=== PATIENT | male | born 1945 | race Caucasian/White ===

== ENCOUNTER 2016-11-07 10:54 | Outpatient (RCR) | payer MEDICARE ==
--- OUTSIDE RECORDS SUMMARY | 2016-08-26 07:54 | XMS REPORT | Continuity of Care Document ---
Author Author [facility] Organization [facility] Address Unknown Phone Unavailable Care Team Providers Care Parquetry Floor Layer Name Role Phone JOSE ALEJANDRO MANZO MD PCP Insurance Providers Payer Name Policy Number Subscriber Name Relationship Wps Medicare [id number] Tova Correa 18 Self / Same As Patient Blue Cross [facility] Supp [id number] Tova Correa 18 Self / Same As Patient Advance Directives Directive Response Recorded Date/Time Advance Directives No 06/20/15 3:00pm Health Care Power of Attache No 06/20/15 3:00pm Organ Donor No 06/20/15 3:00pm Resuscitation Status Full Code 06/20/15 3:00pm Problems Medical Problems Problem Onset Date Status Alcohol abuse with intoxication Unknown Active Status post fall Unknown Active Displaced fracture of left humerus Unknown Active Medications Medication Dose Route Sig Days/Qty Instructions Order Date Discontinued Date Status Potassium Chloride 8 Meq PO DAILY 10/05/10 06/15/15 Discontinued Levothyroxine Sodium (Levothroid) 1 Each PO DAILY 10/05/10 06/15/15 Discontinued Metoprolol Succinate 100 Mg PO TWICE A DAY 10/05/10 06/15/15 Discontinued Gabapentin 300 Mg PO TWICE A DAY TAKES 1/2 (600MG) TABLET 10/05/10 Active Oxycodone Hcl/Acetaminophen 1 Each PO EVERY 4 TO 6HRS NEEDED FOR PAIN 10/10/10 06/15/15 Discontinued Tramadol Hcl 50 Mg PO THREE TIMES A DAY PRN PAIN 06/15/15 06/15/15 Discontinued Amlodipine Besylate 10 Mg PO DAILY @ 1200 06/15/15 Active Hydrochlorothiazide 1 Each PO DAILY 06/15/15 06/15/15 Discontinued Potassium Chloride 10 Meq PO TWICE A DAY 06/15/15 Active Fluticasone Propionate 1 [place] NS DAILY 06/15/15 Active Metoprolol Tartrate 100 Mg PO TWICE A DAY 06/15/15 Active Levothyroxine Sodium 150 Mcg PO DAILY 06/15/15 Active Hydrochlorothiazide 12.5 Mg PO DAILY 06/15/15 Active Tramadol Hcl 50 Mg PO EVERY 8HRS PRN PAIN 06/15/15 06/29/15 Discontinued Multivitamin 1 Tab PO DAILY 06/15/15 Active Docusate Sodium 100 Mg PO TWICE A DAY 30 Days 06/20/15 Active Enoxaparin Sodium 40 Mg SC DAILY@05 30 Days 06/20/15 06/29/15 Discontinued Acetaminophen/Hydrocodone Bitart 1 Ea PO EVERY 4HRS PRN PAIN 30 Days Active [Lorazepam] 2 Mg PO Q2H PRN AGITATION 30 Days 06/20/15 06/29/15 Discontinued Al Hydrox/Mg Hydrox/Simethicone 30 Ml PO EVERY 6 HOURS PRN GI UPSET 30 Days 06/20/15 06/29/15 Discontinued [Promethazine Hcl] 25 Mg IM/IV EVERY 4HRS PRN NAUSEA/VOMITING 30 Days 06/20/15 06/29/15 Discontinued Senna 2 Ea PO TWICE A DAY PRN CONSTIPATION 30 Days 06/20/15 Active [Hydrocodone Bit/Acetaminophen] 1 Ea PO EVERY 4HRS PRN PAIN 60 Qty 06/07 Active Social History Social History Problem Response Recorded Date/Time Alcohol Use Regular Use 06/20/2015 12:45pm Recreational Drug Use Y THC WHEN YOUNGER 06/20/2015 12:45pm Recent Foreign Travel No 06/20/2015 3:30pm Recent Infectious Disease Exposure No 06/20/2015 12:45pm Sexually Transmitted Disease No 06/20/2015 12:45pm Do you dip or chew tobacco? No 06/20/2015 4:00pm Hospital Discharge Instructions No hospital discharge instructions. Plan of Care Discharge Date 06/30/15 10:00am Disposition 30 STILL A PATIENT Instructions/Education Provided Shoulder Dislocation (DC) Open Reduction and Internal Fixation of an Arm Fracture (DC) Forms Provided PDI Surgical Prescriptions See Medications Section Referrals (Unspecified) Reason(s) for Referral: PT EVAL AND TREAT VENITA TINSLEY MD (Unspecified) 2 Weeks Address: [address] [place] [address] Reason(s) for Referral: DR. CAZARES- 07/11/2015 AT 10:30 AM Additional Instructions/Education F/U WITH PCP (DR. MANZO) PRN F/U WITH DR. TINSLEY (ORTHO SURGEON) [facility] PT Care Plan and Goals Follow up with Dr. Tinsley in 2 weeks. DC Sutures 2 weeks from surgery-June 29, 2015.F/U with PCP PRN [facility] PT Functional Status Query Response Date Recorded Patient Orientation Confused June 29, 2015 2:26pm Patient Orientation Person Place Time Situation Normal For Age June 30, 2015 11:32am Comprehension Ability Understands Concepts June 30, 2015 8:00am Allergies, Adverse Reactions, Alerts Allergen Type Severity Reaction Status Last Updated No Known Drug Allergies Active 10/05/10 Immunizations Name Given Type Tetanus Booster (TDap) Unknown Historical pneumococcal polysaccharide PPV23 06/20/15 Administered pneumococcal polysaccharide PPV23 06/20/15 Administered Vital Signs Acute Vital Signs Vital Response Date/Time Temperature (Fahrenheit) 99.6 degrees F (97.6 - 99.5) Temperature (Calculated Celsius) 37.84481 degrees C (36.4 - 37.5) Temperature Source Temporal Pulse Rate (adult) 66 bpm (60 - 90) Respiratory Rate 20 bpm (12 - 24) O2 Sat by Pulse Oximetry 99 % (88 - 100) Blood Pressure 149/69 mm Hg Blood Pressure Mean 95 mm Hg Blood Pressure 149/69 mm Hg Pain Pain Intensity 0 Height (Feet) 5 feet Height (Inches) 11.00 inches Height (Calculated Centimeters) 180.710115 cm Weight (Pounds) 143 pounds Weight (Calculated Grams) 61431.710 gm Weight (Calculated Kilograms) 64.453719 kilograms Calculated BMI 21.20 Results Laboratory Results Test Name Result Units Flags Reference Collection Date/Time Result Date/ Time Comments White Blood Count 9.2 10^3/uL 4.3-11.0 06/20/2015 4:51am 06/20/2015 5: 17am Red Blood Count 3.28 10^6/uL L 4.35-5.85 06/20/2015 4:06/20/2015 5: 17am Hemoglobin 10.7 G/DL L 13.3-17.7 06/20/2015 4:06/20/2015 5:17am Hematocrit 31 % L 40-54 06/20/2015 4:06/20/2015 5:17am Mean Corpuscular Volume 95 FL 80-99 06/20/2015 4:06/20/2015 5: 17am Mean Corpuscular Hemoglobin 33 PG 25-34 06/20/2015 4:06/20/2015 5: 17am Mean Corpuscular Hemoglobin Concent 34 G/DL 32-36 06/20/2015 4: 5:17am Red Cell Distribution Width 12.5 % 10.0-14.5 06/20/2015 4:2014 5:17am Platelet Count 219 10^3/uL 130-400 06/20/2015 4:06/20/2015 5:17am Mean Platelet Volume 9.7 FL 7.4-10.4 06/20/2015 4:06/20/2015 5: 17am Neutrophils (%) (Auto) 71 % 42-75 06/20/2015 4:06/20/2015 5:17am Lymphocytes (%) (Auto) 14 % 12-44 06/20/2015 4:06/20/2015 5:17am Monocytes (%) (Auto) 13 % H 0-12 06/20/2015 4:06/20/2015 5:17am Eosinophils (%) (Auto) 3 % 0-10 06/20/2015 4:06/20/2015 5:17am Basophils (%) (Auto) 0 % 0-10 06/20/2015 4:06/20/2015 5:17am Neutrophils # (Auto) 6.5 X 10^3 1.8-7.8 06/20/2015 4:06/20/2015 5: 17am Lymphocytes # (Auto) 1.3 X 10^3 1.0-4.0 06/20/2015 4:06/20/2015 5: 17am Monocytes # (Auto) 1.2 X 10^3 H 0.0-1.0 06/20/2015 4:51am 06/20/2015 5: 17am Eosinophils # (Auto) 0.2 10^3/uL 0.0-0.3 06/20/2015 4:51am 06/20/2015 5 :17am Basophils # (Auto) 0.0 10^3/uL 0.0-0.1 06/20/2015 4:51am 06/20/2015 5: 17am Prothrombin Time 12.7 SEC 12.2-14.7 06/14/2015 7:52pm 06/14/2015 11: 11pm INR Comment 1.0 0.8-1.4 06/14/2015 7:52pm 06/14/2015 11:11pm INTERPRETIVE DATA SUGGESTED THERAPEUTIC RANGE FOR INR'S: VENOUS THROMBOSIS, PULMONARY EMBOLISM, OR PREVENTION OF SYSTEMIC EMBOLISM (EG. IN ATRIAL FIBRILLATION): 2.0 - 3.0 MECHANICAL PROSTHETIC HEART VALVES: 2.5 - 3.5* *NOTE: INR'S UP TO 4.5 MAY BE NECESSARY IN SELECTED GROUPS OF HIGH RISK PATIENTS. [employer]IXTH [place] COLLE[employer] OF CHEST PHYSICIANS CONSENSUS CONFERENCE ON ANTITHROMBOTIC THERAPY (2000). Activated Partial Thromboplast Time 34 SEC 24-35 06/14/2015 7:52pm 11:11pm Urine Color YELLOW 06/15/2015 8:00pm 06/15/2015 8:28pm Urine Clarity CLEAR 06/15/2015 8:00pm 06/15/2015 8:28pm Urine pH 6 5-9 06/15/2015 8:00pm 06/15/2015 8:28pm Urine Specific [place] 1.010 * 1.016-1.022 06/15/2015 8:00pm 2014 8:28pm Urine Protein 3+ * NEGATIVE 06/15/2015 8:00pm 06/15/2015 8:28pm Urine Glucose (UA) 4+ * NEGATIVE 06/15/2015 8:00pm 06/15/2015 8:28pm Urine RBC (Auto) 3+ * NEGATIVE 06/15/2015 8:00pm 06/15/2015 8:28pm Urine Ketones 2+ * NEGATIVE 06/15/2015 8:00pm 06/15/2015 8:28pm Urine Nitrite NEGATIVE NEGATIVE 06/15/2015 8:00pm 06/15/2015 8:28pm Urine Bilirubin NEGATIVE NEGATIVE 06/15/2015 8:00pm 06/15/2015 8: 28pm Urine Urobilinogen NORMAL MG/DL NORMAL 06/15/2015 8:00pm 06/15/2015 8: 28pm Urine Leukocyte Esterase NEGATIVE NEGATIVE 06/15/2015 8:00pm 2014 8:28pm Urine RBC 2-5 /HPF * 06/15/2015 8:00pm 06/15/2015 8:28pm Urine WBC RARE /HPF 06/15/2015 8:00pm 06/15/2015 8:28pm Urine Bacteria NEGATIVE /HPF 06/15/2015 8:00pm 06/15/2015 8:28pm Urine Crystals NONE /LPF 06/15/2015 8:00pm 06/15/2015 8:28pm Urine Casts NONE /LPF 06/15/2015 8:00pm 06/15/2015 8:28pm Urine Mucus NEGATIVE /LPF 06/15/2015 8:00pm 06/15/2015 8:28pm Urine Culture Indicated NO 06/15/2015 8:00pm 06/15/2015 8:28pm Sodium Level 132 MMOL/L L 135-145 06/20/2015 4:51am 06/20/2015 5:44am Potassium Level 3.5 MMOL/L L 3.6-5.0 06/20/2015 4:51am 06/20/2015 5:44am Chloride Level 102 MMOL/L 98-107 06/20/2015 4:51am 06/20/2015 5:44am Carbon Dioxide Level 23 MMOL/L 21-32 06/20/2015 4:51am 06/20/2015 5: 44am Anion Gap 7 MMOL/L 5-14 06/20/2015 4:51am 06/20/2015 5:44am Blood Urea Nitrogen 15 MG/DL 7-18 06/20/2015 4:51am 06/20/2015 5:44am Creatinine 0.73 MG/DL 0.60-1.30 06/20/2015 4:51am 06/20/2015 5:44am BUN/Creatinine Ratio 06/20/2015 4:51am 06/20/2015 5:44am Estimat Glomerular Filtration Rate > 60 06/20/2015 4:51am 2014 5:44am GFR INTERPRETIVE DATA UNITS FOR ESTIMATED GFR (eGFR): mL/min/1.73 M2 REFERENCE RANGE FOR ESTIMATED GFR (eGFR) eGFR NORMAL eGFR >60 MODERATELY DECREASED eGFR 30-59 SEVERLY DECREASED eGFR 15-29 KIDNEY FAILURE <15 (OR DIALYSIS) Glucose Level 107 MG/DL H 70-105 06/20/2015 4:5106/20/2015 5:44am Calcium Level 8.6 MG/DL 8.5-10.1 06/20/2015 4:5106/20/2015 5:44am Total Bilirubin 0.5 MG/DL 0.1-1.0 06/15/2015 6:06/15/2015 7:04am Alkaline Phosphatase 72 U/L 40-136 06/15/2015 6:06/15/2015 7:04am Aspartate Amino Transf (AST/SGOT) 29 U/L 5-34 06/15/2015 6:2014 7:04am Alanine Aminotransferase (ALT/SGPT) 27 U/L 0-55 06/15/2015 6:06/15 7:04am Total Protein 5.9 G/DL L 6.4-8.2 06/15/2015 6:06/15/2015 7:04am Albumin 2.7 G/DL L 3.2-4.5 06/15/2015 6:06/15/2015 7:04am White Blood Count 7.3 10^3/uL 4.3-11.0 06/21/2015 5:06/21/2015 5: 45am Red Blood Count 3.29 10^6/uL L 4.35-5.85 06/21/2015 5:06/21/2015 5: 45am Hemoglobin 10.9 G/DL L 13.3-17.7 06/21/2015 5:06/21/2015 5:45am Hematocrit 31 % L 40-54 06/21/2015 5:06/21/2015 5:45am Mean Corpuscular Volume 95 FL 80-99 06/21/2015 5:06/21/2015 5: 45am Mean Corpuscular Hemoglobin 33 PG 25-34 06/21/2015 5:06/21/2015 5: 45am Mean Corpuscular Hemoglobin Concent 35 G/DL 32-36 06/21/2015 5: 5:45am Red Cell Distribution Width 12.2 % 10.0-14.5 06/21/2015 5:2014 5:45am Platelet Count 243 10^3/uL 130-400 06/21/2015 5:06/21/2015 5:45am Mean Platelet Volume 9.9 FL 7.4-10.4 06/21/2015 5:06/21/2015 5: 45am Neutrophils (%) (Auto) 67 % 42-75 06/21/2015 5:06/21/2015 5:45am Lymphocytes (%) (Auto) 15 % 12-44 06/21/2015 5:06/21/2015 5:45am Monocytes (%) (Auto) 14 % H 0-12 06/21/2015 5:06/21/2015 5:45am Eosinophils (%) (Auto) 4 % 0-10 06/21/2015 5:06/21/2015 5:45am Basophils (%) (Auto) 0 % 0-10 06/21/2015 5:06/21/2015 5:45am Neutrophils # (Auto) 4.9 X 10^3 1.8-7.8 06/21/2015 5:06/21/2015 5: 45am Lymphocytes # (Auto) 1.1 X 10^3 1.0-4.0 06/21/2015 5:06/21/2015 5: 45am Monocytes # (Auto) 1.1 X 10^3 H 0.0-1.0 06/21/2015 5:06/21/2015 5: 45am Eosinophils # (Auto) 0.3 10^3/uL 0.0-0.3 06/21/2015 5:06/21/2015 5 :45am Basophils # (Auto) 0.0 10^3/uL 0.0-0.1 06/21/2015 5:06/21/2015 5: 45am Sodium Level 133 MMOL/L L 135-145 06/21/2015 5:06/21/2015 6:13am Potassium Level 3.5 MMOL/L L 3.6-5.0 06/21/2015 5:1306/21/2015 6:13am Chloride Level 101 MMOL/L 98-107 06/21/2015 5:1306/21/2015 6:13am Carbon Dioxide Level 24 MMOL/L 21-32 06/21/2015 5:1306/21/2015 6: 13am Anion Gap 8 MMOL/L 5-14 06/21/2015 5:1306/21/2015 6:13am Blood Urea Nitrogen 15 MG/DL 7-18 06/21/2015 5:1306/21/2015 6:13am Creatinine 0.77 MG/DL 0.60-1.30 06/21/2015 5:06/21/2015 6:13am BUN/Creatinine Ratio 19 06/21/2015 5:06/21/2015 6:13am Estimat Glomerular Filtration Rate > 60 06/21/2015 5:2014 6:13am GFR INTERPRETIVE DATA UNITS FOR ESTIMATED GFR (eGFR): mL/min/1.73 M2 REFERENCE RANGE FOR ESTIMATED GFR (eGFR) eGFR NORMAL eGFR >60 MODERATELY DECREASED eGFR 30-59 SEVERLY DECREASED eGFR 15-29 KIDNEY FAILURE <15 (OR DIALYSIS) Glucose Level 98 MG/DL 70-105 06/21/2015 5:06/21/2015 6:13am Calcium Level 8.8 MG/DL 8.5-10.1 06/21/2015 5:06/21/2015 6:13am Total Bilirubin 1.1 MG/DL H 0.1-1.0 06/21/2015 5:06/21/2015 6:13am Alkaline Phosphatase 63 U/L 40-136 06/21/2015 5:06/21/2015 6:13am Aspartate Amino Transf (AST/SGOT) 48 U/L H 5-34 06/21/2015 5:2014 6:13am Alanine Aminotransferase (ALT/SGPT) 36 U/L 0-55 06/21/2015 5:06/21 6:13am Total Protein 6.2 G/DL L 6.4-8.2 06/21/2015 5:1306/21/2015 6:13am Albumin 2.7 G/DL L 3.2-4.5 06/21/2015 5:13am 06/21/2015 6:13am Procedures Procedure Status Date Provider(s) Tracing only of electrocardiogram completed 06/14/15 VENITA TINSLEY MD Encounters Encounter Location Date/Time Discharged Inpatient Via [facility] 06/20/15 1:36pm Discharged Inpatient Via [facility] 06/14/15 9:08pm
[2016-08-26 08:50] LABS: BASOPHILS % (AUTO) 0 % (0-10); EOSINOPHILS # (AUTO) 0.2 10^3/uL (0.0-0.3); EOSINOPHILS % (AUTO) 2 % (0-10); LYMPHOCYTES # (AUTO) 0.9 X 10^3 (1.0-4.0); LYMPHOCYTES % (AUTO) 11 % (12-44); MEAN CORPUSCULAR HEMOGLOBIN 32 PG (25-34); MEAN CORPUSCULAR HGB CONC 36 G/DL (32-36); MEAN CORPUSCULAR VOLUME 90 FL (80-99); MEAN PLATELET VOLUME 9.8 FL (7.4-10.4); MONOCYTES # (AUTO) 0.8 X 10^3 (0.0-1.0); MONOCYTES % (AUTO) 9 % (0-12); NEUTROPHILS # (AUTO) 6.4 X 10^3 (1.8-7.8); NEUTROPHILS % (AUTO) 78 % (42-75); PLATELET COUNT 265 10^3/uL (130-400); RED BLOOD COUNT 4.15 10^6/uL (4.35-5.85); RED CELL DISTRIBUTION WIDTH 11.8 % (10.0-14.5); WHITE BLOOD COUNT 8.3 10^3/uL (4.3-11.0)
[2016-08-26 09:29] LABS: ANION GAP 12 MMOL/L (5-14); BLOOD UREA NITROGEN 19 MG/DL (7-18); BUN/CREATININE RATIO 21; CALCIUM 9.4 MG/DL (8.5-10.1); CARBON DIOXIDE 21 MMOL/L (21-32); CHLORIDE 101 MMOL/L (98-107); GFR ESTIMATED > 60; GLUCOSE 153 MG/DL (70-105); MAGNESIUM 1.8 MG/DL (1.8-2.4); POTASSIUM 3.9 MMOL/L (3.6-5.0); SODIUM 134 MMOL/L (135-145)
[2016-09-02 08:55] LABS: BASOPHILS % (AUTO) 0 % (0-10); EOSINOPHILS # (AUTO) 0.1 10^3/uL (0.0-0.3); EOSINOPHILS % (AUTO) 2 % (0-10); LYMPHOCYTES # (AUTO) 0.6 X 10^3 (1.0-4.0); LYMPHOCYTES % (AUTO) 9 % (12-44); MEAN CORPUSCULAR HEMOGLOBIN 32 PG (25-34); MEAN CORPUSCULAR HGB CONC 36 G/DL (32-36); MEAN CORPUSCULAR VOLUME 89 FL (80-99); MEAN PLATELET VOLUME 9.4 FL (7.4-10.4); MONOCYTES # (AUTO) 0.9 X 10^3 (0.0-1.0); MONOCYTES % (AUTO) 13 % (0-12); NEUTROPHILS # (AUTO) 5.1 X 10^3 (1.8-7.8); NEUTROPHILS % (AUTO) 76 % (42-75); PLATELET COUNT 218 10^3/uL (130-400); RED BLOOD COUNT 3.76 10^6/uL (4.35-5.85); RED CELL DISTRIBUTION WIDTH 11.8 % (10.0-14.5); WHITE BLOOD COUNT 6.7 10^3/uL (4.3-11.0)
[2016-09-02 09:15] LABS: ANION GAP 11 MMOL/L (5-14); BLOOD UREA NITROGEN 14 MG/DL (7-18); BUN/CREATININE RATIO 18; CALCIUM 8.8 MG/DL (8.5-10.1); CARBON DIOXIDE 20 MMOL/L (21-32); CHLORIDE 100 MMOL/L (98-107); GFR ESTIMATED > 60; GLUCOSE 99 MG/DL (70-105); MAGNESIUM 1.7 MG/DL (1.8-2.4); POTASSIUM 3.8 MMOL/L (3.6-5.0); SODIUM 131 MMOL/L (135-145)
[2016-09-09 14:44] LABS: BASOPHILS % (AUTO) 0 % (0-10); EOSINOPHILS # (AUTO) 0.1 10^3/uL (0.0-0.3); EOSINOPHILS % (AUTO) 2 % (0-10); LYMPHOCYTES # (AUTO) 0.6 X 10^3 (1.0-4.0); LYMPHOCYTES % (AUTO) 13 % (12-44); MEAN CORPUSCULAR HEMOGLOBIN 32 PG (25-34); MEAN CORPUSCULAR HGB CONC 35 G/DL (32-36); MEAN CORPUSCULAR VOLUME 90 FL (80-99); MEAN PLATELET VOLUME 8.9 FL (7.4-10.4); MONOCYTES # (AUTO) 0.7 X 10^3 (0.0-1.0); MONOCYTES % (AUTO) 15 % (0-12); NEUTROPHILS # (AUTO) 3.4 X 10^3 (1.8-7.8); NEUTROPHILS % (AUTO) 70 % (42-75); PLATELET COUNT 172 10^3/uL (130-400); RED BLOOD COUNT 3.63 10^6/uL (4.35-5.85); RED CELL DISTRIBUTION WIDTH 12.8 % (10.0-14.5); WHITE BLOOD COUNT 4.8 10^3/uL (4.3-11.0)
[2016-09-09 15:18] LABS: ALANINE AMINOTRANSFERASE 18 U/L (0-55); ANION GAP 5 MMOL/L (5-14); ASPARTATE AMINO TRANSFERASE 18 U/L (5-34); BILIRUBIN,TOTAL 0.2 MG/DL (0.1-1.0); BLOOD UREA NITROGEN 13 MG/DL (7-18); BUN/CREATININE RATIO 17; CALCIUM 8.8 MG/DL (8.5-10.1); CARBON DIOXIDE 27 MMOL/L (21-32); CHLORIDE 101 MMOL/L (98-107); CREATININE SERUM 0.77 MG/DL (0.60-1.30); GFR ESTIMATED > 60; GLUCOSE 97 MG/DL (70-105); MAGNESIUM 1.6 MG/DL (1.8-2.4); SODIUM 133 MMOL/L (135-145)
[2016-09-16 08:19] LABS: BASOPHILS % (AUTO) 0 % (0-10); EOSINOPHILS % (AUTO) 1 % (0-10); LYMPHOCYTES # (AUTO) 0.5 X 10^3 (1.0-4.0); LYMPHOCYTES % (AUTO) 14 % (12-44); MEAN CORPUSCULAR HEMOGLOBIN 32 PG (25-34); MEAN CORPUSCULAR HGB CONC 36 G/DL (32-36); MEAN CORPUSCULAR VOLUME 90 FL (80-99); MEAN PLATELET VOLUME 9.2 FL (7.4-10.4); MONOCYTES # (AUTO) 0.6 X 10^3 (0.0-1.0); MONOCYTES % (AUTO) 17 % (0-12); NEUTROPHILS # (AUTO) 2.3 X 10^3 (1.8-7.8); NEUTROPHILS % (AUTO) 68 % (42-75); PLATELET COUNT 129 10^3/uL (130-400); RED BLOOD COUNT 3.59 10^6/uL (4.35-5.85); RED CELL DISTRIBUTION WIDTH 12.8 % (10.0-14.5); WHITE BLOOD COUNT 3.5 10^3/uL (4.3-11.0)
[2016-09-16 08:38] LABS: ANION GAP 7 MMOL/L (5-14); BLOOD UREA NITROGEN 14 MG/DL (7-18); BUN/CREATININE RATIO 19; CALCIUM 8.9 MG/DL (8.5-10.1); CARBON DIOXIDE 25 MMOL/L (21-32); CHLORIDE 99 MMOL/L (98-107); CREATININE SERUM 0.72 MG/DL (0.60-1.30); GFR ESTIMATED > 60; GLUCOSE 109 MG/DL (70-105); MAGNESIUM 1.7 MG/DL (1.8-2.4); POTASSIUM 4.2 MMOL/L (3.6-5.0); SODIUM 131 MMOL/L (135-145)
[2016-09-23 08:39] LABS: BASOPHILS % (AUTO) 0 % (0-10); EOSINOPHILS % (AUTO) 1 % (0-10); LYMPHOCYTES # (AUTO) 0.4 X 10^3 (1.0-4.0); LYMPHOCYTES % (AUTO) 15 % (12-44); MEAN CORPUSCULAR HEMOGLOBIN 32 PG (25-34); MEAN CORPUSCULAR HGB CONC 36 G/DL (32-36); MEAN CORPUSCULAR VOLUME 91 FL (80-99); MEAN PLATELET VOLUME 9.1 FL (7.4-10.4); MONOCYTES # (AUTO) 0.4 X 10^3 (0.0-1.0); MONOCYTES % (AUTO) 15 % (0-12); NEUTROPHILS % (AUTO) 68 % (42-75); PLATELET COUNT 126 10^3/uL (130-400); RED BLOOD COUNT 3.31 10^6/uL (4.35-5.85); RED CELL DISTRIBUTION WIDTH 13.5 % (10.0-14.5); WHITE BLOOD COUNT 2.9 10^3/uL (4.3-11.0)
[2016-09-23 09:11] LABS: ALANINE AMINOTRANSFERASE 20 U/L (0-55); ALBUMIN 3.1 G/DL (3.2-4.5); ANION GAP 6 MMOL/L (5-14); ASPARTATE AMINO TRANSFERASE 18 U/L (5-34); BILIRUBIN,TOTAL 0.3 MG/DL (0.1-1.0); BLOOD UREA NITROGEN 21 MG/DL (7-18); BUN/CREATININE RATIO 27; CALCIUM 8.6 MG/DL (8.5-10.1); CARBON DIOXIDE 26 MMOL/L (21-32); CHLORIDE 100 MMOL/L (98-107); CREATININE SERUM 0.78 MG/DL (0.60-1.30); GFR ESTIMATED > 60; GLUCOSE 146 MG/DL (70-105); MAGNESIUM 1.6 MG/DL (1.8-2.4); SODIUM 132 MMOL/L (135-145); TOTAL PROTEIN 6.1 G/DL (6.4-8.2)
[2016-09-30 08:46] LABS: BASOPHILS % (AUTO) 1 % (0-10); EOSINOPHILS % (AUTO) 1 % (0-10); LYMPHOCYTES # (AUTO) 0.4 X 10^3 (1.0-4.0); LYMPHOCYTES % (AUTO) 13 % (12-44); MEAN CORPUSCULAR HGB CONC 36 G/DL (32-36); MEAN CORPUSCULAR VOLUME 90 FL (80-99); MEAN PLATELET VOLUME 8.9 FL (7.4-10.4); MONOCYTES # (AUTO) 0.4 X 10^3 (0.0-1.0); MONOCYTES % (AUTO) 15 % (0-12); NEUTROPHILS % (AUTO) 70 % (42-75); PLATELET COUNT 163 10^3/uL (130-400); RED BLOOD COUNT 3.17 10^6/uL (4.35-5.85); RED CELL DISTRIBUTION WIDTH 14.3 % (10.0-14.5); WHITE BLOOD COUNT 2.9 10^3/uL (4.3-11.0)
[2016-09-30 08:47] LABS: MEAN CORPUSCULAR HEMOGLOBIN 32 PG (25-34)
[2016-09-30 09:02] LABS: ANION GAP 7 MMOL/L (5-14); BLOOD UREA NITROGEN 16 MG/DL (7-18); BUN/CREATININE RATIO 21; CALCIUM 9.1 MG/DL (8.5-10.1); CARBON DIOXIDE 26 MMOL/L (21-32); CHLORIDE 98 MMOL/L (98-107); CREATININE SERUM 0.75 MG/DL (0.60-1.30); GFR ESTIMATED > 60; GLUCOSE 116 MG/DL (70-105); MAGNESIUM 1.5 MG/DL (1.8-2.4); POTASSIUM 3.8 MMOL/L (3.6-5.0); SODIUM 131 MMOL/L (135-145)
[2016-10-07 08:34] LABS: BASOPHILS % (AUTO) 1 % (0-10); EOSINOPHILS % (AUTO) 1 % (0-10); LYMPHOCYTES # (AUTO) 0.4 X 10^3 (1.0-4.0); LYMPHOCYTES % (AUTO) 19 % (12-44); MEAN CORPUSCULAR HEMOGLOBIN 33 PG (25-34); MEAN CORPUSCULAR HGB CONC 36 G/DL (32-36); MEAN CORPUSCULAR VOLUME 92 FL (80-99); MONOCYTES # (AUTO) 0.3 X 10^3 (0.0-1.0); MONOCYTES % (AUTO) 13 % (0-12); NEUTROPHILS # (AUTO) 1.4 X 10^3 (1.8-7.8); NEUTROPHILS % (AUTO) 67 % (42-75); PLATELET COUNT 154 10^3/uL (130-400); RED BLOOD COUNT 3.01 10^6/uL (4.35-5.85); RED CELL DISTRIBUTION WIDTH 15.2 % (10.0-14.5); WHITE BLOOD COUNT 2.1 10^3/uL (4.3-11.0)
[2016-10-07 08:51] LABS: ANION GAP 6 MMOL/L (5-14); BLOOD UREA NITROGEN 14 MG/DL (7-18); BUN/CREATININE RATIO 17; CALCIUM 8.9 MG/DL (8.5-10.1); CARBON DIOXIDE 27 MMOL/L (21-32); CHLORIDE 95 MMOL/L (98-107); CREATININE SERUM 0.81 MG/DL (0.60-1.30); GFR ESTIMATED > 60; GLUCOSE 102 MG/DL (70-105); MAGNESIUM 1.7 MG/DL (1.8-2.4); POTASSIUM 4.2 MMOL/L (3.6-5.0); SODIUM 128 MMOL/L (135-145)
[2016-10-14 09:38] LABS: BASOPHILS % (AUTO) 1 % (0-10); EOSINOPHILS % (AUTO) 2 % (0-10); LYMPHOCYTES # (AUTO) 0.5 X 10^3 (1.0-4.0); LYMPHOCYTES % (AUTO) 23 % (12-44); MEAN CORPUSCULAR HEMOGLOBIN 34 PG (25-34); MEAN CORPUSCULAR HGB CONC 36 G/DL (32-36); MEAN CORPUSCULAR VOLUME 94 FL (80-99); MEAN PLATELET VOLUME 8.4 FL (7.4-10.4); MONOCYTES # (AUTO) 0.4 X 10^3 (0.0-1.0); MONOCYTES % (AUTO) 20 % (0-12); NEUTROPHILS # (AUTO) 1.1 X 10^3 (1.8-7.8); NEUTROPHILS % (AUTO) 55 % (42-75); PLATELET COUNT 128 10^3/uL (130-400); RED BLOOD COUNT 2.98 10^6/uL (4.35-5.85); RED CELL DISTRIBUTION WIDTH 17.9 % (10.0-14.5); WHITE BLOOD COUNT 2.1 10^3/uL (4.3-11.0)
[2016-10-14 10:52] LABS: ANION GAP 7 MMOL/L (5-14); BLOOD UREA NITROGEN 15 MG/DL (7-18); BUN/CREATININE RATIO 19; CALCIUM 9.1 MG/DL (8.5-10.1); CARBON DIOXIDE 27 MMOL/L (21-32); CHLORIDE 97 MMOL/L (98-107); CREATININE SERUM 0.81 MG/DL (0.60-1.30); GFR ESTIMATED > 60; GLUCOSE 131 MG/DL (70-105); MAGNESIUM 1.7 MG/DL (1.8-2.4); POTASSIUM 4.1 MMOL/L (3.6-5.0); SODIUM 131 MMOL/L (135-145)
[~2016-11-07 10:54] MED LIST: ACHYD1T PO; AMLO10TA PO; CISPLATIN IV SCH; DCS100C PO; ENXP40I.4 SC; FAMOTIDINE 20MG/2ML IV (CANCER CTR) IV SCH; FLUT16SP22 NS; FOSAPREPITANT 150 MG/NS 150 MG IVPB (CANCER CTR) IV PRN; GABA600T2 PO; HCTZ12.5T PO; HYDR-3730 PO; HYDR-3812 PO; HYDR12.56 PO; Hydrocodone Bit/Acetaminophen PO; INDA2.5T2 PO; LEVO150T6 PO; LVT.15T PO; Lorazepam PO; MAG30ORA2 PO; MANNITOL IV SCH; METO100T2 PO; METO100T5 PO; MULT-974 PO; NS IV 500 ML (CANCER CENTER) IV SCH; ONDANSETRON 16 MG, DEXAMETHASONE 10 MG/NS 50 ML IVPB IV SCH; OXYB10TA6 PO; OXYC-309 PO; POTA10TA36 PO; POTA8TAB PO; PROMETHAZINE HCL IM/IV; SENN1TAB76 PO; TRAM100T2 PO; TRAM50TA2 PO; [UNRECOGNIZED DRUG - OTHER] IV SCH; [UNRECOGNIZED DRUG - OTHER] IV SCH
[2016-11-07 11:21] LABS: BASOPHILS % (AUTO) 1 % (0-10); EOSINOPHILS # (AUTO) 0.1 10^3/uL (0.0-0.3); EOSINOPHILS % (AUTO) 2 % (0-10); LYMPHOCYTES # (AUTO) 0.9 X 10^3 (1.0-4.0); LYMPHOCYTES % (AUTO) 22 % (12-44); MEAN CORPUSCULAR HEMOGLOBIN 34 PG (25-34); MEAN CORPUSCULAR HGB CONC 35 G/DL (32-36); MEAN CORPUSCULAR VOLUME 97 FL (80-99); MEAN PLATELET VOLUME 9.1 FL (7.4-10.4); MONOCYTES # (AUTO) 0.5 X 10^3 (0.0-1.0); MONOCYTES % (AUTO) 13 % (0-12); NEUTROPHILS # (AUTO) 2.6 X 10^3 (1.8-7.8); NEUTROPHILS % (AUTO) 63 % (42-75); PLATELET COUNT 217 10^3/uL (130-400); RED BLOOD COUNT 3.46 10^6/uL (4.35-5.85); RED CELL DISTRIBUTION WIDTH 15.8 % (10.0-14.5); WHITE BLOOD COUNT 4.2 10^3/uL (4.3-11.0)
[2016-11-07 12:23] LABS: ALANINE AMINOTRANSFERASE 19 U/L (0-55); ALBUMIN 3.5 G/DL (3.2-4.5); ANION GAP 6 MMOL/L (5-14); ASPARTATE AMINO TRANSFERASE 23 U/L (5-34); BILIRUBIN,TOTAL 0.3 MG/DL (0.1-1.0); BLOOD UREA NITROGEN 24 MG/DL (7-18); BUN/CREATININE RATIO 29; CALCIUM 9.4 MG/DL (8.5-10.1); CARBON DIOXIDE 27 MMOL/L (21-32); CHLORIDE 104 MMOL/L (98-107); CREATININE SERUM 0.83 MG/DL (0.60-1.30); GFR ESTIMATED > 60; GLUCOSE 123 MG/DL (70-105); MAGNESIUM 1.7 MG/DL (1.8-2.4); POTASSIUM 3.8 MMOL/L (3.6-5.0); SODIUM 137 MMOL/L (135-145); TOTAL PROTEIN 6.8 G/DL (6.4-8.2)
== END 2016-11-24 | disposition home or self-care (01) ==
LOC: ONC 10:54
PROVIDERS: ATTEND Internal Medicine Hematology & Oncology
DX: Z51.11 Encounter for antineoplastic chemotherapy (principal); Z51.0 Encounter for antineoplastic radiation therapy; C12 Malignant neoplasm of pyriform sinus; I10 Essential (primary) hypertension; E03.9 Hypothyroidism, unspecified; E87.6 Hypokalemia; Z72.0 Tobacco use; Z79.899 Other long term (current) drug therapy
CPT/HCPCS: 36415; 36591; 77336; 77386; 80048; 80053; 83735; 84153; 85025; 96367; 96375; 96413; 96417; 99213

== ENCOUNTER 2016-11-26 12:21 | Outpatient (CLI) | payer MEDICARE ==
[~2016-11-26] VITALS: Ht 180.3 cm; Wt 59.6 kg
[~2016-11-26 12:21] MED LIST changes: -CISPLATIN IV SCH; -FAMOTIDINE 20MG/2ML IV (CANCER CTR) IV SCH; -FOSAPREPITANT 150 MG/NS 150 MG IVPB (CANCER CTR) IV PRN; -MANNITOL IV SCH; -NS IV 500 ML (CANCER CENTER) IV SCH; -ONDANSETRON 16 MG, DEXAMETHASONE 10 MG/NS 50 ML IVPB IV SCH; -[UNRECOGNIZED DRUG - OTHER] IV SCH; -[UNRECOGNIZED DRUG - OTHER] IV SCH
--- OUTSIDE RECORDS SUMMARY | 2016-11-26 12:26 | XMS REPORT | Continuity of Care Document ---
Author Author [facility] Organization [facility] Address Unknown Phone Unavailable Care Team Providers Care Pastrycook Name Role Phone JOSE ALEJANDRO MANZO MD PCP Insurance Providers Payer Name Policy Number Subscriber Name Relationship Wps Medicare [id number] Tova Correa 18 Self / Same As Patient Blue Cross [facility] Supp [id number] Tova Correa 18 Self / Same As Patient Advance Directives Directive Response Recorded Date/Time Advance Directives No 06/20/15 3:00pm Health Care Power of Ethnic Studies Professor No 06/20/15 3:00pm Organ Donor No 06/20/15 [...] A DAY 06/15/15 Active Fluticasone Propionate 1 [place] NS DAILY 06/15/15 Active Metoprolol Tartrate 100 [...] VENITA TINSLEY MD (Unspecified) 2 Weeks Address: [address] [place] [address] Reason(s) for Referral: DR. CAZARES- 07/11/2015 AT 10:30 AM Additional Instructions/Education F/U WITH PCP (DR. MANZO) PRN F/U WITH DR. TINSLEY (ORTHO SURGEON) [facility] PT Care Plan and Goals Follow up with Dr. Tinsley in 2 weeks. DC Sutures 2 weeks from surgery-June 29, 2015.F/U with PCP PRN [facility] PT Functional Status Query Response Date Recorded [...] F (97.6 - 99.5) Temperature (Calculated Celsius) 37.65848 degrees C (36.4 - 37.5) Temperature Source [...] Height (Inches) 11.00 inches Height (Calculated Centimeters) 180.691290 cm Weight (Pounds) 143 pounds Weight (Calculated Grams) 63955.710 gm Weight (Calculated Kilograms) 64.711451 kilograms Calculated BMI 21.20 Results Laboratory Results [...] SELECTED GROUPS OF HIGH RISK PATIENTS. [employer]IX[employer] [place] [employer] CHEST PHYSICIANS CONSENSUS CONFERENCE ON ANTITHROMBOTIC THERAPY (2000). Activated Partial Thromboplast Time 34 SEC 24-35 06/14/2015 7:52pm 11:11pm Urine Color YELLOW 06/15/2015 8:00pm 06/15/2015 8:28pm Urine Clarity CLEAR 06/15/2015 8:00pm 06/15/2015 8:28pm Urine pH 6 5-9 06/15/2015 8:00pm 06/15/2015 8:28pm Urine Specific [place] 1.010 * 1.016-1.022 06/15/2015 8:00pm 2014 8:28pm [...] Encounters Encounter Location Date/Time Discharged Inpatient Via [facility] 06/20/15 1:36pm Discharged Inpatient Via [facility] 06/14/15 9:08pm
[2016-11-26 12:32] VITALS: BP 138/57
[2016-11-26] MEDS ORDERED: MAGN400T6 PO (12:39)
[2016-11-26] MEDS ORDERED: OMEP20TA7 PO (12:39)
== END 2016-11-26 12:45 | disposition home or self-care (01) ==
LOC: PREOP 12:21
PROVIDERS: ATTEND Otolaryngology Otolaryngology/Facial Plastic Surgery
DX: Z01.818 Encounter for other preprocedural examination (principal); Z11.2 Encounter for screening for other bacterial diseases; C12 Malignant neoplasm of pyriform sinus
CPT/HCPCS: 87081

== ENCOUNTER 2016-11-28 06:23 | Day surgery (SDC) | payer MEDICARE ==
[~2016-11-28] VITALS: Ht 180.3 cm; Wt 59.6 kg
[~2016-11-28 06:23] MED LIST changes: +MAGN400T6 PO; +OMEP20TA7 PO
--- OUTSIDE RECORDS SUMMARY | 2016-11-28 06:27 | XMS REPORT | Continuity of Care Document ---
Author Author [facility] Organization [facility] Address Unknown Phone Unavailable Care Team Providers Care Vial Gauger Name Role Phone JOSE ALEJANDRO MANZO MD PCP Insurance Providers Payer Name Policy Number Subscriber Name Relationship Wps Medicare [id number] Tova Correa 18 Self / Same As Patient Blue Cross [facility] Supp [id number] Tova Correa 18 Self / Same As Patient Advance Directives Directive Response Recorded Date/Time Advance Directives No 06/20/15 3:00pm Health Care Power of Pig Farm Manager No 06/20/15 3:00pm Organ Donor No 06/20/15 [...] A DAY 06/15/15 Active Fluticasone Propionate 1 [place] NS DAILY 06/15/15 Active Metoprolol Tartrate 100 [...] VENITA TINSLEY MD (Unspecified) 2 Weeks Address: [address] [place] [address] Reason(s) for Referral: DR. CAZARES- 07/11/2015 AT 10:30 AM Additional Instructions/Education F/U WITH PCP (DR. MANZO) PRN F/U WITH DR. TINSLEY (ORTHO SURGEON) [facility] PT Care Plan and Goals Follow up with Dr. Tinsley in 2 weeks. DC Sutures 2 weeks from surgery-June 29, 2015.F/U with PCP PRN [facility] PT Functional Status Query Response Date Recorded [...] F (97.6 - 99.5) Temperature (Calculated Celsius) 37.86755 degrees C (36.4 - 37.5) Temperature Source [...] Height (Inches) 11.00 inches Height (Calculated Centimeters) 180.501659 cm Weight (Pounds) 143 pounds Weight (Calculated Grams) 23972.710 gm Weight (Calculated Kilograms) 64.690928 kilograms Calculated BMI 21.20 Results Laboratory Results [...] SELECTED GROUPS OF HIGH RISK PATIENTS. SIXTH [place] [employer] CHEST PHYSICIANS CONSENSUS CONFERENCE ON ANTITHROMBOTIC THERAPY (2000). Activated Partial Thromboplast Time 34 SEC 24-35 06/14/2015 7:52pm 11:11pm Urine Color YELLOW 06/15/2015 8:00pm 06/15/2015 8:28pm Urine Clarity CLEAR 06/15/2015 8:00pm 06/15/2015 8:28pm Urine pH 6 5-9 06/15/2015 8:00pm 06/15/2015 8:28pm Urine Specific [place] 1.010 * 1.016-1.022 06/15/2015 8:00pm 2014 8:28pm [...] Encounters Encounter Location Date/Time Discharged Inpatient Via [facility] 06/20/15 1:36pm Discharged Inpatient Via [facility] 06/14/15 9:08pm
--- OUTSIDE RECORDS SUMMARY | 2016-11-28 06:28 | XMS REPORT | Continuity of Care Document ---
Author Author [facility] Organization [facility] Address Unknown Phone Unavailable Care Team Providers Care Cyber Threat Analyst Name Role Phone JOSE ALEJANDRO MANZO MD PCP Insurance Providers Payer Name Policy Number Subscriber Name Relationship Wps Medicare [id number] Tova Correa 18 Self / Same As Patient Blue Cross [facility] Supp [id number] Tova Correa 18 Self / Same As Patient Advance Directives Directive Response Recorded Date/Time Advance Directives No 06/20/15 3:00pm Health Care Power of Authorization Representative No 06/20/15 3:00pm Organ Donor No 06/20/15 [...] A DAY 06/15/15 Active Fluticasone Propionate 1 [place] NS DAILY 06/15/15 Active Metoprolol Tartrate 100 [...] VENITA TINSLEY MD (Unspecified) 2 Weeks Address: [address] [place] [address] Reason(s) for Referral: DR. CAZARES- 07/11/2015 AT 10:30 AM Additional Instructions/Education F/U WITH PCP (DR. MANZO) PRN F/U WITH DR. TINSLEY (ORTHO SURGEON) [facility] PT Care Plan and Goals Follow up with Dr. Tinsley in 2 weeks. DC Sutures 2 weeks from surgery-June 29, 2015.F/U with PCP PRN [facility] PT Functional Status Query Response [...] F (97.6 - 99.5) Temperature (Calculated Celsius) 37.71664 degrees C (36.4 - 37.5) Temperature Source [...] Height (Inches) 11.00 inches Height (Calculated Centimeters) 180.507656 cm Weight (Pounds) 143 pounds Weight (Calculated Grams) 45545.710 gm Weight (Calculated Kilograms) 64.069295 kilograms Calculated BMI 21.20 Results Laboratory Results [...] SELECTED GROUPS OF HIGH RISK PATIENTS. [employer]IX[employer] [place] [employer]ST PH[employer] CONSENSUS CONFERENCE ON ANTITHROMBOTIC THERAPY (2000). Activated Partial Thromboplast Time 34 SEC 24-35 06/14/2015 7:52pm 11:11pm Urine Color YELLOW 06/15/2015 8:00pm 06/15/2015 8:28pm Urine Clarity CLEAR 06/15/2015 8:00pm 06/15/2015 8:28pm Urine pH 6 5-9 06/15/2015 8:00pm 06/15/2015 8:28pm Urine Specific [place] 1.010 * 1.016-1.022 06/15/2015 8:00pm 2014 8:28pm [...] Encounters Encounter Location Date/Time Discharged Inpatient Via [facility] 06/20/15 1:36pm Discharged Inpatient Via [facility] 06/14/15 9:08pm
--- NOTE | 2016-11-28 06:46 | Progress Note-Pre Operative ---
Pre-Operative Progress Note H&P Reviewed The H&P was reviewed, patient examined and no changes noted. Date H&P Reviewed: Nov 28, 2016 Time H&P Reviewed: 06:35 Pre-Operative Diagnosis: Hx of Squamous Cell CA of Larynx/Laryngeal Lesion MAKAYLA MUSTAFA MD Nov 28, 2016 6:46 am
[2016-11-28 07:06] VITALS: BP 162/69
[2016-11-28] MEDS ORDERED: LACTATED RINGERS 1,000 ML IV PRN (07:07)
[2016-11-28] MEDS ORDERED: SEVOFLURANE (ULTANE) 15 ML INHAL SOLN ONE (07:11)
[2016-11-28] MEDS ORDERED: proPOfol 200 MG/20 ML (DIPRIVAN) VIAL IV ONE ×2 (07:11→07:49)
[2016-11-28] MEDS ORDERED: fentaNYL INJECTION 100 MCG/2 ML AMP ONE (07:11)
[2016-11-28] MEDS ORDERED: ONDANSETRON 4 MG/2 ML (SDV) Z0FRAN ONE ×2 (07:11)
[2016-11-28] MEDS ORDERED: LACTATED RINGERS 1,000 ML IV ONE (07:11)
[2016-11-28] MEDS ORDERED: LIDOCAINE PF 2% 10 ML (XYLOCAINE) AMP ONE (07:11)
[2016-11-28] MEDS ORDERED: MIDAZOLAM 2 MG/2 ML (VERSED) VIAL ONE (07:29)
[2016-11-28] MEDS ORDERED: LIDOCAINE/EPI 1%-1:100,000 (XYLOCAINE) 20ML ONE (07:33)
[2016-11-28] MEDS ORDERED: LIDOCAINE/EPI 1%-1:200,000 (XYLOCAINE) 30 ML VIAL ONE (07:33)
[2016-11-28] MEDS ORDERED: GLYCOPYRROLATE 0.2 MG/ML (ROBINUL) 2 ML VIAL ONE (07:40)
[2016-11-28] MEDS ORDERED: SUCCINYLCHOLINE INJ 100 MG/5 ML SYR ONE (07:40)
--- NOTE | 2016-11-28 07:57 | Progress Note-Post Operative ---
Post-Operative Progess Note Pre-Operative Diagnosis Hx of Squamous Cell CA of Larynx/Laryngeal Lesion Post-Operative Diagnosis same Post-Op Procedure Note Date of Procedure: Nov 28, 2016 Name of Procedure: Direct Laryngoscopy with Biopsy Anesthesia Type get Estimated blood loss (mL): minimal Specimen(s) collected Biopsies sent to pathology MAKAYLA MUSTAFA MD Nov 28, 2016 7:57 am
[2016-11-28] MEDS ORDERED: HYDROcodone/APAP 5 MG/325 MG (LORTAB) TAB PO PRN (08:00)
[2016-11-28] MEDS ORDERED: ACETAMINOPHEN 325 MG TABLET/CAPLET (TYLENOL) PO PRN (08:00)
[2016-11-28] MEDS ORDERED: PROMETHAZINE INJ 25 MG/ML (PHENERGAN) AMP IV PRN (08:00)
[2016-11-28] MEDS ORDERED: morphine INJ 10 MG/ML 1ML (SYR OR VIAL) IV PRN (08:15)
[2016-11-28] MEDS ORDERED: fentaNYL INJECTION 100 MCG/2 ML AMP IV PRN (08:15)
[2016-11-28] MEDS ORDERED: ONDANSETRON 4 MG/2 ML (SDV) Z0FRAN IV ONE (08:15)
[2016-11-28 09:05] VITALS: BP 156/65
[2016-11-28 09:37] VITALS: BP 158/66
[2016-11-28] MEDS ORDERED: HYDR-3812 PO (09:40)
[2016-11-28 10:03] VITALS: BP 167/67
== END 2016-11-28 10:30 | disposition home or self-care (01) ==
LOC: SDC 06:23
PROVIDERS: ATTEND Otolaryngology Otolaryngology/Facial Plastic Surgery
DX: Z08 Encounter for follow-up examination after completed treatment for malignant neoplasm (principal); Z85.818 Personal history of malignant neoplasm of other sites of lip, oral cavity, and pharynx; Z92.21 Personal history of antineoplastic chemotherapy; Z92.3 Personal history of irradiation; Z79.899 Other long term (current) drug therapy
CPT/HCPCS: 82962

== ENCOUNTER → 2017-01-30 | Outpatient (CLI) | payer MEDICARE ==
[~2017-01-30] MED LIST changes: +CIPR-225 PO; +IOHEXOL 350 MG/ML 100 ML (OMNIPAQUE 350) VIAL IV ONE; +LEVO125T6 PO; +NS 100 ML (IVPB) BAG IV ONE; +TAMS0.4C98 PO
--- OUTSIDE RECORDS SUMMARY | 2017-01-30 07:20 | XMS REPORT | Continuity of Care Document ---
Author Author [facility] Organization [facility] Address Unknown Phone Unavailable Care Team Providers Care Manager Market Research Name Role Phone JOSE ALEJANDRO MANZO MD PCP Insurance Providers Payer Name Policy Number Subscriber Name Relationship Wps Medicare [id number] Tova Correa 18 Self / Same As Patient Blue Cross Mcr Supp [id number] Tova Correa 18 Self / Same As Patient Advance Directives Directive Response Recorded Date/Time Advance Directives Yes 11/28/16 6:54am Health Care Power of Asset Protection Greeter No 11/28/16 6:54am Organ Donor No 11/28/16 6:54am Resuscitation Status DNR-Pt Request 11/28/16 6:54am Problems Active Problems Medical Problem Onset Date Status Alcohol abuse with intoxication Unknown Acute Displaced fracture of left humerus Unknown Acute Status post fall Unknown Acute Medications Current Home Medications Medication Dose Units Route Directions Days/Qty Instructions Start Date Gabapentin 600 Mg 300 Mg Oral Twice A Day TAKES 1/2 (600MG) TABLET 11/02 Amlodipine Besylate 10 Mg 10 Mg Oral Daily @ 1200 06/15/15 Potassium Chloride 10 Meq 10 Meq Oral Twice A Day 06/15/15 Metoprolol Tartrate 100 Mg 100 Mg Oral Twice A Day 06/15/15 Levothyroxine Sodium 150 Mcg 150 Mcg Oral Daily 06/15/15 Hydrochlorothiazide 12.5 Mg 12.5 Mg Oral Daily 06/15/15 Multivitamin 1 Each 1 Tab Oral Daily 06/15/15 Tramadol Hcl 50 Mg 50 Mg Oral Three Times A Day 07/23/16 Oxybutynin Chloride 10 Mg 10 Mg Oral Daily 07/23/16 Omeprazole 20 Mg 20 Mg Oral Daily 11/26/16 Magnesium Oxide 400 Mg 400 Mg Oral Twice A Day 11/26/16 Hydrocodone/Acetaminophen 1 Each 1-2 Tab Oral Every 4HRS as needed for Pain 40 11/28/16 Past Home Medications Medication Directions Ordered Status Potassium Chloride 8 Meq Tablet.sa, 8 Meq Oral Daily 10/05/10 Discontinued Levothyroxine Sodium (Levothroid) 150 Mcg Tablet, 1 Each Oral Daily 10/05/10 Discontinued Metoprolol Succinate 100 Mg Tab.sr.24h, 100 Mg Oral Twice A Day 10/05/10 Discontinued Oxycodone Hcl/Acetaminophen 1 Each Tablet, 1 Each Oral 10/10/10 Discontinued Tramadol Hcl 50 Mg Tablet, 50 Mg Oral Three Times A Day as needed for Pain Discontinued Hydrochlorothiazide 12.5 Mg Tablet, 1 Each Oral Daily 06/15/15 Discontinued Fluticasone Propionate 16 Gm Naspr, 1 [place] Nasal Daily 06/15/15 Discontinued Tramadol Hcl 50 Mg Tab, 50 Mg Oral Every 8HRS as needed for Pain 06/15/15 Discontinued Docusate Sodium 100 Mg Cap, 100 Mg Oral Twice A Day 06/20/15 Discontinued Enoxaparin Sodium 40 Mg/0.4 Ml Soln, 40 Mg Subcutaneously Daily@05 06/20/15 Discontinued Acetaminophen/Hydrocodone Bitart 1 Ea Tab, 1 Ea Oral Every 4HRS as needed for Pain 06/20/15 Discontinued [Lorazepam] 1 Mg Tab, 2 Mg Oral Every 2 Hours as needed for Agitation Discontinued Al Hydrox/Mg Hydrox/Simethicone (Mylanta Susp.) 30 Ml Oral.susp, 30 Ml Oral Every 6 Hours as needed for Gi Upset 06/20/15 Discontinued [Promethazine Hcl] 25 Mg/Ml Soln, 25 Mg Im/Iv Every 4HRS as needed for Nausea/ Vomiting 06/20/15 Discontinued Senna 1 Ea Tablet, 2 Ea Oral Twice A Day as needed for Constipation 06/20/15 Discontinued [Hydrocodone Bit/Acetaminophen] 1 Ea Tab, 1 Ea Oral Every 4HRS as needed for Pain 06/30/15 Discontinued Hydrocodone/Acetaminophen 1 Each Tablet, 1-2 Tab Oral Every 4HRS as needed for Pain 07/25/16 Discontinued Hydrocodone/Acetaminophen 1 Each Tablet, 1-2 Each Oral Every 4HRS 08/15/16 Discontinued Social History Social History Problem Response Recorded Date/Time Alcohol Use Regular Use 06/20/2015 12:45pm Recreational Drug Use Y THC WHEN YOUNGER 06/20/2015 12:45pm Recent Foreign Travel No 11/28/2016 6:56am Sexually Transmitted Disease No 11/28/2016 6:54am Smoking Status Former Smoker 11/28/2016 6:54am Do you dip or chew tobacco? No 06/20/2015 4:00pm Type Used Cigarettes 11/28/2016 10:35am Recent Hopitalizations No 11/28/2016 6:54am Sexually Transmitted Disease No 11/28/2016 6:54am Hx Sexually Transmitted Disorders No 10/05/2010 1:48pm Query Response Start Date Stop Date Smoking Status Former Smoker Hospital Discharge Instructions No hospital discharge instructions. Plan of Care Discharge Date 11/28/16 10:30am Instructions/Education Provided ANESTHESIA INSTRUCTIONS POSTOP Prescriptions See Medication Section Functional Status No functional status results. Allergies, Adverse Reactions, Alerts No known allergies. Immunizations No immunization records. Vital Signs Acute Vital Signs Vital Response Date/Time Temperature (Fahrenheit) 97.5 degrees F (97.6 - 99.5) 11/28/2016 10:03am Temperature (Calculated Celsius) 36.01439 degrees C (36.4 - 37.5) 11/28/2016 10:03am Temperature Source Temporal 11/28/2016 10:03am Pulse Rate (adult) 50 bpm (60 - 90) 11/28/2016 10:03am Respiratory Rate 18 bpm (12 - 24) 11/28/2016 10:03am O2 Sat by Pulse Oximetry 100 % (88 - 100) 11/28/2016 10:03am Blood Pressure 167/67 mm Hg 11/28/2016 10:03am Blood Pressure Mean 100 mm Hg 11/28/2016 7:06am Pain Numeric Pain Scale 0-No Pain 11/28/2016 10:30am Height (Feet) 5 feet 11/28/2016 6:56am Height (Inches) 11.00 inches 11/28/2016 6:56am Height (Calculated Centimeters) 180.431347 cm 11/28/2016 6:56am Weight (Pounds) 131 pounds 11/28/2016 6:56am Weight (Ounces) 6.0 oz 11/28/2016 6:56am Weight (Calculated Grams) 34776.70 gm 11/28/2016 6:56am Weight (Calculated Kilograms) 59.033204 kilograms 11/28/2016 6:56am Calculated BMI 18.3 11/28/2016 6:56am Results Laboratory Results Test Name Result Units Flags Reference Collection Date/Time Result Date/ Time Comments White Blood Count 4.2 10^3/uL L 4.3-11.0 11/07/2016 11:15am 11/07/2016 11 :22am Red Blood Count 3.46 10^6/uL L 4.35-5.85 11/07/2016 11:15am 11/07/2016 11 :22am Hemoglobin 11.6 G/DL L 13.3-17.7 11/07/2016 11:15am 11/07/2016 11:22am Hematocrit 34 % L 40-54 11/07/2016 11:15am 11/07/2016 11:22am Mean Corpuscular Volume 97 FL 80-99 11/07/2016 11:15am 11/07/2016 11: 22am Mean Corpuscular Hemoglobin 34 PG 25-34 11/07/2016 11:15am 11/07/2016 11:22am Mean Corpuscular Hemoglobin Concent 35 G/DL 32-36 11/07/2016 11:15am 11:22am Red Cell Distribution Width 15.8 % H 10.0-14.5 11/07/2016 11:15am 2015 11:22am Platelet Count 217 10^3/uL 130-400 11/07/2016 11:15am 11/07/2016 11: 22am Mean Platelet Volume 9.1 FL 7.4-10.4 11/07/2016 11:15am 11/07/2016 11: 22am Neutrophils (%) (Auto) 63 % 42-75 11/07/2016 11:15am 11/07/2016 11: 22am Lymphocytes (%) (Auto) 22 % 12-44 11/07/2016 11:15am 11/07/2016 11: 22am Monocytes (%) (Auto) 13 % H 0-12 11/07/2016 11:1511/07/2016 11:22am Eosinophils (%) (Auto) 2 % 0-10 11/07/2016 11:1511/07/2016 11:22am Basophils (%) (Auto) 1 % 0-10 11/07/2016 11:1511/07/2016 11:22am Neutrophils # (Auto) 2.6 X 10^3 1.8-7.8 11/07/2016 11:1511/07/2016 11:22am Lymphocytes # (Auto) 0.9 X 10^3 L 1.0-4.0 11/07/2016 11:1511/07/2016 11:22am Monocytes # (Auto) 0.5 X 10^3 0.0-1.0 11/07/2016 11:1511/07/2016 11: 22am Eosinophils # (Auto) 0.1 10^3/uL 0.0-0.3 11/07/2016 11:1511/07/2016 11:22am Basophils # (Auto) 0.0 10^3/uL 0.0-0.1 11/07/2016 11:1511/07/2016 11 :22am Sodium Level 137 MMOL/L 135-145 11/07/2016 11:1511/07/2016 12:25pm Potassium Level 3.8 MMOL/L 3.6-5.0 11/07/2016 11:1511/07/2016 12: 25pm Chloride Level 104 MMOL/L 98-107 11/07/2016 11:1511/07/2016 12:25pm Carbon Dioxide Level 27 MMOL/L 21-32 11/07/2016 11:1511/07/2016 12: 25pm Anion Gap 6 MMOL/L 5-14 11/07/2016 11:1511/07/2016 12:25pm Blood Urea Nitrogen 24 MG/DL H 7-18 11/07/2016 11:1511/07/2016 12: 25pm Creatinine 0.83 MG/DL 0.60-1.30 11/07/2016 11:1511/07/2016 12:25pm BUN/Creatinine Ratio 29 11/07/2016 11:1511/07/2016 12:25pm Estimat Glomerular Filtration Rate > 60 11/07/2016 11:152015 12:25pm GFR INTERPRETIVE DATA UNITS FOR ESTIMATED GFR (eGFR): mL/min/1.73 M2 REFERENCE RANGE FOR ESTIMATED GFR (eGFR) eGFR NORMAL eGFR >60 MODERATELY DECREASED eGFR 30-59 SEVERLY DECREASED eGFR 15-29 KIDNEY FAILURE <15 (OR DIALYSIS) Glucose Level 123 MG/DL H 70-105 11/07/2016 11:1511/07/2016 12:25pm Calcium Level 9.4 MG/DL 8.5-10.1 11/07/2016 11:1511/07/2016 12:25pm Magnesium Level 1.7 MG/DL L 1.8-2.4 11/07/2016 11:1511/07/2016 12: 25pm Total Bilirubin 0.3 MG/DL 0.1-1.0 11/07/2016 11:1511/07/2016 12: 25pm Alkaline Phosphatase 90 U/L 40-136 11/07/2016 11:1511/07/2016 12: 25pm Aspartate Amino Transf (AST/SGOT) 23 U/L 5-34 11/07/2016 11:152015 12:25pm Alanine Aminotransferase (ALT/SGPT) 19 U/L 0-55 11/07/2016 11:15 12:25pm Total Protein 6.8 G/DL 6.4-8.2 11/07/2016 11:1511/07/2016 12:25pm Albumin 3.5 G/DL 3.2-4.5 11/07/2016 11:1511/07/2016 12:25pm Pending Laboratory Results Test Name Collection Date/Time Pending Microbiology Results Procedure Source Collection Date/Time Procedures Procedure Status Date Provider(s) Laryngoscopy with biopsy Completed 11/28/16 MAKAYLA MUSTAFA MD Encounters Encounter Location Arrival/Admit Date Discharge/Depart Date Attending Provider Departed [facility] 11/28/16 6:23am 10:30am MAKAYLA MUSTAFA MD Registered Recurring [facility] 11/26/16 1:49pm BARRIE VELASQUEZ Departed Clinic [facility] 11/26/16 12:21pm 11/26/16 12: 45pm MAKAYLA MUSTAFA MD Registered Clinic [facility] 10/31/16 10:14am FREDA CAMACHO Discharged Recurring [facility] 08/26/16 7:50am 11:59pm BARRIE VELASQUEZ
--- NOTE | 2017-01-30 09:57 | Diagnostic Imaging Report ---
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 Followup exam. No current treatment. EXAM: Axial CT scan of the neck soft tissue performed with 75 cc of Omnipaque 350 IV contrast. Coronal reformatted images are created. COMPARISON: CT scan of the neck soft tissue performed with IV contrast dated 10/31/2016. FINDINGS: There is interval resolution of the previously seen 14-mm area of amorphous enhancement involving the right palatine tonsillar region near the right soft palatal arch. There is no evidence of developing masslike enhancement seen. There is stable soft tissue thickening of the posterior supraglottic laryngeal wall with no measurable mass seen. Stable mild asymmetry of the vocal cord region. There is stable soft tissue thickening involving the supraglottic larynx and soft palate bilaterally which may be from post treatment changes. There is no evidence of developing lymphadenopathy. Stable appearance of the thyroid gland which is small in size with stable grossly 3-mm right thyroid gland nodule. The bilateral salivary glands show no significant abnormality. The posterior nasopharynx, remainder of the oropharynx structures relatively symmetric and unremarkable. Again seen atherosclerotic disease in the bilateral ICA bulbs and bilateral ECA regions. There is cervical spine degenerative disease again noted. Mild emphysematous lung disease changes are again seen. The visualized intracranial structures are grossly unremarkable. There is atherosclerotic disease of the bilateral cavernous carotid arteries. The remainder of this exam shows no significant interval change compared to the prior study of comparison. IMPRESSION: 1: Interval resolution of the previously seen 14-mm area of amorphous enhancement involving right palatine tonsillar region near the right soft palatal arch. 2: There is no evidence of interval developing neck soft tissue mass or lymphadenopathy. 3: Stable mild soft tissue thickening involving the supraglottic larynx and soft palate bilaterally which may be from post treatment changes. 4: The remainder of this exam shows no significant interval change compared to the prior study of comparison. Dictated by: Dictated on workstation # [id number]
== END ==
LOC: RAD 07:17
PROVIDERS: ATTEND Nurse Practitioner Adult Health
DX: C12 Malignant neoplasm of pyriform sinus (principal)
CPT/HCPCS: 70491

== ENCOUNTER 2017-02-06 14:20 | Outpatient (RCR) | payer MEDICARE ==
--- OUTSIDE RECORDS SUMMARY | 2016-11-26 13:52 | XMS REPORT | Continuity of Care Document ---
Author Author [facility] Organization [facility] Address Unknown Phone Unavailable Care Team Providers Care Corporate Strategist Name Role Phone JOSE ALEJANDRO MANZO MD PCP Insurance Providers Payer Name Policy Number Subscriber Name Relationship Wps Medicare [id number] Tova Correa 18 Self / Same As Patient Blue Cross [facility] Supp [id number] Tova Correa 18 Self / Same As Patient Advance Directives Directive Response Recorded Date/Time Advance Directives No 06/20/15 3:00pm Health Care Power of Web Content Specialist No 06/20/15 3:00pm Organ Donor No 06/20/15 [...] A DAY 06/15/15 Active Fluticasone Propionate 1 [place] NS DAILY 06/15/15 Active Metoprolol Tartrate 100 [...] VENITA TINSLEY MD (Unspecified) 2 Weeks Address: [address] [place] [address] Reason(s) for Referral: DR. CAZARES- 07/11/2015 AT 10:30 AM Additional Instructions/Education F/U WITH PCP (DR. MANZO) PRN F/U WITH DR. TINSLEY (ORTHO SURGEON) [facility] PT Care Plan and Goals Follow up with Dr. Tinsley in 2 weeks. DC Sutures 2 weeks from surgery-June 29, 2015.F/U with PCP PRN [facility] PT Functional Status Query Response Date Recorded [...] F (97.6 - 99.5) Temperature (Calculated Celsius) 37.28914 degrees C (36.4 - 37.5) Temperature Source [...] Height (Inches) 11.00 inches Height (Calculated Centimeters) 180.117619 cm Weight (Pounds) 143 pounds Weight (Calculated Grams) 86909.710 gm Weight (Calculated Kilograms) 64.057848 kilograms Calculated BMI 21.20 Results Laboratory Results [...] SELECTED GROUPS OF HIGH RISK PATIENTS. SIX[employer] [place] [employer] CHEST PHYSICIANS CONSENSUS CONFERENCE ON ANTITHROMBOTIC THERAPY (2000). Activated Partial Thromboplast Time 34 SEC 24-35 06/14/2015 7:52pm 11:11pm Urine Color YELLOW 06/15/2015 8:00pm 06/15/2015 8:28pm Urine Clarity CLEAR 06/15/2015 8:00pm 06/15/2015 8:28pm Urine pH 6 5-9 06/15/2015 8:00pm 06/15/2015 8:28pm Urine Specific [place] 1.010 * 1.016-1.022 06/15/2015 8:00pm 2014 8:28pm [...] Encounters Encounter Location Date/Time Discharged Inpatient Via [facility] 06/20/15 1:36pm Discharged Inpatient Via [facility] 06/14/15 9:08pm
[2016-12-12 10:50] LABS: BASOPHILS % (AUTO) 0 % (0-10); EOSINOPHILS # (AUTO) 0.1 10^3/uL (0.0-0.3); EOSINOPHILS % (AUTO) 2 % (0-10); LYMPHOCYTES % (AUTO) 16 % (12-44); MEAN CORPUSCULAR HEMOGLOBIN 33 PG (25-34); MEAN CORPUSCULAR HGB CONC 35 G/DL (32-36); MEAN CORPUSCULAR VOLUME 93 FL (80-99); MEAN PLATELET VOLUME 9.2 FL (7.4-10.4); MONOCYTES # (AUTO) 0.8 X 10^3 (0.0-1.0); MONOCYTES % (AUTO) 13 % (0-12); NEUTROPHILS # (AUTO) 4.2 X 10^3 (1.8-7.8); NEUTROPHILS % (AUTO) 69 % (42-75); PLATELET COUNT 181 10^3/uL (130-400); RED CELL DISTRIBUTION WIDTH 12.9 % (10.0-14.5); WHITE BLOOD COUNT 6.1 10^3/uL (4.3-11.0)
[2016-12-12 11:38] LABS: ALANINE AMINOTRANSFERASE 15 U/L (0-55); ALBUMIN 3.4 G/DL (3.2-4.5); ANION GAP 8 MMOL/L (5-14); ASPARTATE AMINO TRANSFERASE 18 U/L (5-34); BILIRUBIN,TOTAL 0.4 MG/DL (0.1-1.0); BLOOD UREA NITROGEN 23 MG/DL (7-18); BUN/CREATININE RATIO 28; CALCIUM 9.1 MG/DL (8.5-10.1); CARBON DIOXIDE 24 MMOL/L (21-32); CHLORIDE 98 MMOL/L (98-107); CREATININE SERUM 0.81 MG/DL (0.60-1.30); GFR ESTIMATED > 60; GLUCOSE 113 MG/DL (70-105); MAGNESIUM 1.7 MG/DL (1.8-2.4); POTASSIUM 4.4 MMOL/L (3.6-5.0); SODIUM 130 MMOL/L (135-145); TOTAL PROTEIN 6.5 G/DL (6.4-8.2)
[2017-01-23 09:42] LABS: BASOPHILS % (AUTO) 0 % (0-10); EOSINOPHILS # (AUTO) 0.1 10^3/uL (0.0-0.3); EOSINOPHILS % (AUTO) 2 % (0-10); LYMPHOCYTES # (AUTO) 0.8 X 10^3 (1.0-4.0); LYMPHOCYTES % (AUTO) 15 % (12-44); MEAN CORPUSCULAR HEMOGLOBIN 32 PG (25-34); MEAN CORPUSCULAR HGB CONC 35 G/DL (32-36); MEAN CORPUSCULAR VOLUME 91 FL (80-99); MEAN PLATELET VOLUME 9.6 FL (7.4-10.4); MONOCYTES # (AUTO) 0.6 X 10^3 (0.0-1.0); MONOCYTES % (AUTO) 11 % (0-12); NEUTROPHILS # (AUTO) 3.6 X 10^3 (1.8-7.8); NEUTROPHILS % (AUTO) 71 % (42-75); PLATELET COUNT 172 10^3/uL (130-400); RED BLOOD COUNT 4.43 10^6/uL (4.35-5.85); RED CELL DISTRIBUTION WIDTH 12.4 % (10.0-14.5)
[2017-01-23 10:21] LABS: ALANINE AMINOTRANSFERASE 19 U/L (0-55); ALBUMIN 3.5 G/DL (3.2-4.5); ANION GAP 9 MMOL/L (5-14); ASPARTATE AMINO TRANSFERASE 19 U/L (5-34); BILIRUBIN,TOTAL 0.4 MG/DL (0.1-1.0); BLOOD UREA NITROGEN 20 MG/DL (7-18); BUN/CREATININE RATIO 22; CALCIUM 9.6 MG/DL (8.5-10.1); CARBON DIOXIDE 26 MMOL/L (21-32); CHLORIDE 101 MMOL/L (98-107); CREATININE SERUM 0.92 MG/DL (0.60-1.30); GFR ESTIMATED > 60; GLUCOSE 106 MG/DL (70-105); MAGNESIUM 1.7 MG/DL (1.8-2.4); POTASSIUM 4.4 MMOL/L (3.6-5.0); SODIUM 136 MMOL/L (135-145); TOTAL PROTEIN 6.5 G/DL (6.4-8.2)
[2017-01-23 10:45] LABS: THYROID STIMULATING HORMONE 0.06 UIU/ML (0.35-4.94)
[~2017-02-06 14:20] MED LIST changes: -CIPR-225 PO; -IOHEXOL 350 MG/ML 100 ML (OMNIPAQUE 350) VIAL IV ONE; -LEVO125T6 PO; -NS 100 ML (IVPB) BAG IV ONE; -TAMS0.4C98 PO
[2017-02-16] MEDS ORDERED: LEVO125T6 PO (06:09)
[2017-02-16] MEDS ORDERED: CIPR-225 PO ×2 (06:25→06:30)
[2017-02-16] MEDS ORDERED: TAMS0.4C98 PO ×2 (06:25→06:30)
== END 2017-02-24 | disposition home or self-care (01) ==
LOC: ONC 14:20
PROVIDERS: ATTEND Internal Medicine Hematology & Oncology
DX: C12 Malignant neoplasm of pyriform sinus (principal); I10 Essential (primary) hypertension; E03.9 Hypothyroidism, unspecified; E87.6 Hypokalemia; Z72.0 Tobacco use; Z79.899 Other long term (current) drug therapy
CPT/HCPCS: 36591; 80053; 83735; 84443; 85025; 99213

== ENCOUNTER 2017-02-16 05:07 | Emergency (ER) | payer MEDICARE ==
[~2017-02-16] VITALS: Ht 182.9 cm; Wt 60.8 kg
[2017-02-16 06:00] LABS: BILIRUBIN,URINE NEGATIVE (NEGATIVE); KETONES,URINE NEGATIVE (NEGATIVE); LEUKOCYTE ESTERASE ,URINE 3+ (NEGATIVE); NITRITE,URINE NEGATIVE (NEGATIVE); PH,URINE 7 (5-9); PROTEIN,URINE 4+ (NEGATIVE); UROBILINOGEN,URINE NORMAL (NORMAL)
[2017-02-16 06:09] LABS: WBC,URINE TNTC /HPF
[2017-02-16] MEDS ORDERED: LEVO125T6 PO (06:09)
[2017-02-16] MEDS ORDERED: CIPROFLOXACIN 500 MG (CIPRO) TABLET PO ONE (06:15)
[2017-02-16] MEDS ORDERED: CIPR-225 PO ×2 (06:25→06:30)
[2017-02-16] MEDS ORDERED: TAMS0.4C98 PO ×2 (06:25→06:30)
--- NOTE | 2017-02-16 06:26 | ED GU-Male ---
General Chief Complaint: -Male Stated Complaint: PAIN W URINATION Nursing Triage Note: Amb to ED using his walker and accompanied by spouse. c/o need to urinate and can not. Pt had similar pain with urgency Friday0-0500 on Friday. Pt started sensation again at 0500. Pt can only void drops. Source: patient, family Exam Limitations: no limitations History of Present Illness Time seen by provider: 05:08 Initial Comments This patient presents to the emergency room with complaints of lower abdominal pain and difficulty producing urine. He had some trouble on Friday which was transient and resolved without treatment. Tonight his pain is not improving. He denies any other symptoms. He denies any prior history of prostate problems. He does take oxybutynin for overactive bladder. Allergies and Home Medications Allergies Coded Allergies: No Known Drug Allergies (Unverified , 10/05/10) Home Medications Amlodipine Besylate 10 Mg Tablet, 10 MG PO DAILY @ 1200, (Reported) Ciprofloxacin HCl 500 Mg Tablet, 500 MG PO BID, #20 Prescribed by: NI ALVAREZ on 02/16/17 0630 Gabapentin 600 Mg Tablet, 300 MG PO BID, (Reported) TAKES 1/2 (600MG) TABLET Hydrochlorothiazide 12.5 Mg Cap, 12.5 MG PO DAILY, (Reported) Levothyroxine Sodium 125 Mcg Tablet, 125 MCG PO DAILY, (Reported) Magnesium Oxide 400 Mg Tablet, 400 MG PO DAILY, (Reported) Metoprolol Tartrate 100 Mg Tablet, 100 MG PO BID, (Reported) Multivitamin 1 Each Tablet, 1 TAB PO DAILY, (Reported) Omeprazole 20 Mg Tablet.dr, 20 MG PO DAILY, (Reported) Oxybutynin Chloride 10 Mg Tab.er.24, 10 MG PO DAILY, (Reported) Potassium Chloride 10 Meq Tab.prt.sr, 10 MEQ PO BID, (Reported) Tamsulosin HCl 0.4 Mg Cap, 0.4 MG PO DAILY, #30 Prescribed by: NI ALVAREZ on 02/16/17 0630 Tramadol HCl 50 Mg Tablet, 50 MG PO TID, (Reported) Constitutional: no symptoms reported EENTM: no symptoms reported Respiratory: no symptoms reported Cardiovascular: no symptoms reported Gastrointestinal: no symptoms reported Genitourinary: see HPI Musculoskeletal: no symptoms reported Skin: no symptoms reported Psychiatric/Neurological: No Symptoms Reported Past Xzmjrmc-Hbkjan-Mbunnj Hx Patient Social History Alcohol Use: Past History Recreational Drug Use: No Smoking Status: Former Smoker Type Used: Cigarettes 2nd Hand Smoke Exposure: No Recent Foreign Travel: No Contact w/Someone Who Travel: No Recent Infectious Disease Expo: No Recent Hopitalizations: No Immunizations Up To Date Tetanus Booster (TDap): Unknown Seasonal Allergies Seasonal Allergies: Yes Surgeries HX Surgeries: Yes ( R ROTATOR CUFF, R FOOT, direct larynoscopy, arm fx, port) Surgeries: Orthopedic, Vasectomy Respiratory Hx Respiratory Disorders: No Cardiovascular Hx Cardiac Disorders: Yes Cardiac Disorders: Hypertension Neurological Hx Neurological Disorders: Yes Neurological Disorders: Neuropathy Reproductive System Hx Reproductive Disorders: No Sexually Transmitted Disease: No Genitourinary Hx Genitourinary Disorders: Yes (overactive bladder) Gastrointestinal Hx Gastrointestinal Disorders: Yes Gastrointestinal Disorders: Polyps Musculoskeletal Hx Musculoskeletal Disorders: Yes (RIGHT SHOULDER SX, LEFT SHOULDER FX 06/14/15) Musculoskeletal Disorders: Fractures Endocrine Hx Endocrine Disorders: Yes ("BORDERLINE" DIABETES--NO MEDICATIONS AND DOES NOT FOLLOW DIET) Endocrine Disorders: Hypothyroidsim HEENT HX ENT Disorders: Yes (CATARACTS REMOVED) HEENT Disorders: Cataract Loss of Vision: Denies Hearing Impairment: Denies 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) Psychosocial Hx Psychiatric Problems: Yes Behavioral Health Disorders: Anxiety Integumentary HX Skin/Integumentary Disorder: No Blood Transfusions Hx Blood Disorders: No Family Medical History Family Medial History: Aneurysm 19 FATHER Colon cancer 19 MOTHER Physical Exam Vital Signs Vital Sign - Last 12Hours 02/16/17 05:11 Temp 97.5 Pulse 58 Resp 20 B/P (MAP) 203/97 Pulse Ox 98 O2 Delivery Room Air Capillary Refill : Less Than 3 Seconds General Appearance: WD/WN, mild distress HEENT: normal ENT inspection, other (excessive tongue movements) Neck: normal inspection Cardiovascular: regular rate, rhythm, no edema, no murmur Respiratory: lungs clear Gastrointestinal: normal bowel sounds, non tender, soft Extremities: normal inspection, no pedal edema Neurologic/Psychiatric: section gang II-XII nml as tested, no motor/sensory deficits, alert, normal mood/affect, oriented x 3 Skin: normal color, warm/dry Progress/Results/Core Measures Results/Orders Lab Results Laboratory Tests Test 02/16/17 05:50 Range/Units Urine Color YELLOW Urine Clarity SLIGHTLY CLOUDY Urine pH 7 5-9 Urine Specific [place] 1.010 L 1.016-1.022 Urine Protein 4+ NEGATIVE Urine Glucose (UA) NEGATIVE NEGATIVE Urine Ketones NEGATIVE NEGATIVE Urine Nitrite NEGATIVE NEGATIVE Urine Bilirubin NEGATIVE NEGATIVE Urine Urobilinogen NORMAL NORMAL MG/DL Urine Leukocyte Esterase 3+ H NEGATIVE Urine RBC (Auto) 2+ H NEGATIVE Urine RBC 10-25 H /HPF Urine WBC TNTC H /HPF Urine Crystals NONE /LPF Urine Bacteria NEGATIVE /HPF Urine Casts NONE /LPF Urine Mucus NEGATIVE /LPF Urine Culture Indicated YES My Orders Orders - NI SHARP MD Ua Culture If Indicated (02/16/17 05:08) Bladder Scan (02/16/17 05:30) York Cath Insertion (02/16/17 05:42) Urine Culture (02/16/17 05:50) Ciprofloxacin Tablet (Cipro Tablet) (02/16/17 06:15) Medications Given in ED Current Medications Medications Dose Ordered Sig/Jennifer Route Start Time Stop Time Status Last Admin Dose Admin Ciprofloxacin 500 mg ONCE ONCE PO 02/16/17 06:15 02/16/17 06:16 DC 02/16/17 06:19 500 MG Vital Signs/I&O Vital Sign - Last 12Hours 02/16/17 05:11 Temp 97.5 Pulse 58 Resp 20 B/P (MAP) 203/97 Pulse Ox 98 O2 Delivery Room Air Blood Pressure Mean: 132 Progress Note : Progress Note bladder scan revealed approximately 750 mL of retained urine. York catheter was placed and yielded 550 mL. Patient felt immediate relief. He was started on Cipro for treatment of urinary tract infection. Departure Impression Impression: Primary Impression: Urinary retention Additional Impression: Urinary tract infection Qualified Codes: N39.0 - Urinary tract infection, site not specified Disposition: HOME, SELF-CARE Condition: Improved Departure-Patient Inst. Decision time for Depature: 06:15 Referrals: JOSE ALEJANDRO MANZO MD (PCP/Family) Primary Care Physician Patient Instructions: How to Care for Your York Catheter, Male, Urinary Tract Infection, Adult (DC) Add. Discharge Instructions: Complete your antibiotics as prescribed. Follow-up with Dr. Michael as soon as possible. Leave the catheter in until otherwise instructed. Follow-up on the results of your urine culture in 48 hours. Return to the ER if symptoms worsen. Stop the oxybutynin (Ditropan). All discharge instructions reviewed with patient and/or family. Voiced understanding. Scripts Ciprofloxacin HCl (Cipro) 500 Mg Tablet 500 MG PO BID, #20 TAB Prov: NI SHARP MD 02/16/17 Tamsulosin HCl (Flomax) 0.4 Mg Cap 0.4 MG PO DAILY, #30 CAP Prov: NI SHARP MD 02/16/17 NI SHARP MD Feb 16, 2017 06:26
[2017-02-16 06:58] VITALS: BP 172/78
--- OUTSIDE RECORDS SUMMARY | 2017-03-04 12:58 | XMS REPORT | Continuity of Care Document ---
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 [facility] IRF LEFT SHOULDER,HUMERUS FX [id number] 06/14/2015 21:08:00 2014 13:10:00 DIS Inpatient JOSE ALEJANDRO MANZO MD [facility] SURGICAL LEFT SHOULDER,HUMERUS FRACTURE; ALCOHOL INTOX [id number] 11/05/2013 10:00:00 2013 11:39:00 DIS Outpatient JOSE ALEJANDRO MANZO MD [facility] REHAB LOW BACK PAIN [id number] 10/20/2013 11:30:00 2012 23:59:59 CLS Outpatient JOSE ALEJANDRO MANZO MD [facility] RAD LOBULATIONS ALONG UPPER POLE OF KIDNEY; ABN CT [id number] 10/19/2013 07:03:00 2012 23:59:59 CLS Outpatient JOSE ALEJANDRO MANZO MD [facility] LAB [id number] 10/18/2013 13:27:00 2012 23:59:59 CLS Outpatient JOSE ALEJANDRO MANZO MD [facility] RAD HEMATURIA,FLANK PAIN [id number] 02/25/2017 00:14:00 PEN Preadmit BARRIE VELASQUEZ [facility] ONC [id number] 01/30/2017 07:17:00 ACT Outpatient FREDA CAMACHO [facility] RAD PIRIFORM SINUS TUMOR [id number] 10/31/2016 10:14:00 ACT Outpatient FREDA CAMACHO [facility] RAD PIRIFORM SINUS TUMOR [id number] 07/30/2016 08:25:00 ACT Outpatient MAKAYLA MUSTAFA MD [facility] RAD TYNXMX SQUAMOUS CELL [id number] 07/12/2016 08:22:00 ACT Outpatient RAMSEY MARS, MAKAYLA Buck [facility] RAD DYSPHAGIA,RT PARAFORM SINUS MASS [id number] 07/04/2016 09:28:00 ACT Outpatient ANAIS MARS, JOSE ALEJANDRO Richey [facility] RAD DYSPHAGIA [id number] 12/05/2015 09:07:00 ACT Outpatient ANAIS MARS, JOSE ALEJANDRO Richey [facility] RAD CALCIFIED CAROTID ARTERY [id number] 11/22/2015 14:28:00 ACT Outpatient ANAIS MARS, JOSE ALEJANDRO Richey [facility] RAD CALCIFIED CAROTID ARTERY [id number] 06/26/2015 14:36:00 Document Registration [id number] 06/26/2015 14:36:00 Document Registration [id number] 06/26/2015 14:36:00 Document Registration [id number] 06/26/2015 14:36:00 Document Registration [id number] 10/20/2012 07:32:00 Document Registration [id number] 08/03/2012 15:23:00 Document Registration [id number] 10/10/2010 05:45:00 Document Registration [id number] 10/05/2010 13:39:00 Document Registration [id number] 10/04/2010 10:19:00 Document Registration [id number] 09/20/2010 07:01:00 Document Registration [id number] 09/18/2010 09:30:00 Document Registration [id number] 03/28/2010 07:46:00 Document Registration
== END 2017-02-16 06:58 | disposition home or self-care (01) ==
LOC: EDUNIT# 05:07 → ER 05:10
DX: N30.91 Cystitis, unspecified with hematuria (principal); R33.9 Retention of urine, unspecified; I10 Essential (primary) hypertension; Z79.899 Other long term (current) drug therapy
CPT/HCPCS: 51702; 81000; 87088

== ENCOUNTER → 2017-03-06 | Outpatient (CLI) | payer MEDICARE ==
[~2017-03-06] MED LIST changes: +CIPR-225 PO; +LEVO125T6 PO; +TAMS0.4C98 PO
[2017-03-06 12:37] LABS: BASOPHILS % (AUTO) 0 % (0-10); EOSINOPHILS # (AUTO) 0.1 10^3/uL (0.0-0.3); EOSINOPHILS % (AUTO) 3 % (0-10); LYMPHOCYTES # (AUTO) 0.8 X 10^3 (1.0-4.0); LYMPHOCYTES % (AUTO) 18 % (12-44); MEAN CORPUSCULAR HEMOGLOBIN 30 PG (25-34); MEAN CORPUSCULAR HGB CONC 34 G/DL (32-36); MEAN CORPUSCULAR VOLUME 88 FL (80-99); MEAN PLATELET VOLUME 9.5 FL (7.4-10.4); MONOCYTES # (AUTO) 0.4 X 10^3 (0.0-1.0); MONOCYTES % (AUTO) 10 % (0-12); NEUTROPHILS # (AUTO) 3.1 X 10^3 (1.8-7.8); NEUTROPHILS % (AUTO) 68 % (42-75); PLATELET COUNT 199 10^3/uL (130-400); RED BLOOD COUNT 4.52 10^6/uL (4.35-5.85); RED CELL DISTRIBUTION WIDTH 12.9 % (10.0-14.5); WHITE BLOOD COUNT 4.5 10^3/uL (4.3-11.0)
[2017-03-06 12:58] LABS: ALANINE AMINOTRANSFERASE 22 U/L (0-55); ALBUMIN 3.5 G/DL (3.2-4.5); ANION GAP 10 MMOL/L (5-14); ASPARTATE AMINO TRANSFERASE 22 U/L (5-34); BILIRUBIN,TOTAL 0.3 MG/DL (0.1-1.0); BLOOD UREA NITROGEN 17 MG/DL (7-18); BUN/CREATININE RATIO 19; CALCIUM 9.3 MG/DL (8.5-10.1); CARBON DIOXIDE 27 MMOL/L (21-32); CHLORIDE 97 MMOL/L (98-107); GFR ESTIMATED > 60; GLUCOSE 128 MG/DL (70-105); POTASSIUM 3.8 MMOL/L (3.6-5.0); SODIUM 134 MMOL/L (135-145); TOTAL PROTEIN 6.8 G/DL (6.4-8.2)
[2017-03-06 13:19] LABS: THYROID STIMULATING HORMONE 0.14 UIU/ML (0.35-4.94)
[2017-03-07 15:51] LABS: RAPID PLASMA REAGIN Non Reactive
== END ==
LOC: LAB 12:02
PROVIDERS: ATTEND Specialist
DX: R41.3 Other amnesia (principal); I10 Essential (primary) hypertension
CPT/HCPCS: 36415; 80053; 82607; 83090; 83921; 84439; 84443; 85025; 86592

== ENCOUNTER → 2017-03-12 | Outpatient (CLI) | payer MEDICARE ==
[~2017-03-12] MED LIST changes: +GADOBUTROL 7.5 MMOL/7.5 ML (GADAVIST) VIAL IV ONE
--- NOTE | 2017-03-12 16:58 | Diagnostic Imaging Report ---
PROCEDURE: MR imaging of the brain with and without contrast. TECHNIQUE: Multiplanar, multisequence MR imaging of the brain was performed with and without contrast. INDICATION: Short-term memory loss. 6 mL of Gadavist is administered intravenously. FINDINGS: There is no diffusion restriction to suggest an acute infarct or other diffusion abnormality. The brain demonstrate mild to moderate atrophy slightly more expected for the patient's age. There is periventricular and deep white matter T2 hyperintense lesions without mass effect or enhancement likely related to chronic microvascular ischemic changes. Suggestion of an old lacunar infarct in the left thalamus measuring 1 cm is seen. There is no enhancing mass. There is suggestion of developmental perivascular spaces and minimal vascular enhancement in it seen in the centrum semiovale and the basal ganglia. The pituitary gland is normal in size. No hypothalamic or pineal region mass. The central vascular flow-voids appear grossly unremarkable. The internal auditory canals and the inner ear structures appear unremarkable. In the occipital region of the skull to the right of the midline, there is a 1.7 cm T2 hyperintense and T1 hypointense lesion with no central enhancement seen suggestive of a bone cyst or an epidermoid. The orbits and paranasal sinuses appear grossly unremarkable. IMPRESSION: No acute infarct or enhancing mass. Dictated by: Dictated on workstation # [id number]
== END ==
LOC: RAD 15:13
PROVIDERS: ATTEND Specialist
DX: R41.3 Other amnesia (principal)
CPT/HCPCS: 70553

== ENCOUNTER 2017-04-04 19:11 | Emergency (ER) | payer MEDICARE ==
[~2017-04-04] VITALS: Ht 180.3 cm; Wt 61.2 kg
[~2017-04-04 19:11] MED LIST changes: -GADOBUTROL 7.5 MMOL/7.5 ML (GADAVIST) VIAL IV ONE
--- NOTE | 2017-04-04 19:37 | ED Head Injury ---
General Chief Complaint: Laceration Stated Complaint: FALL/HEAD LAC Nursing Triage Note: laceration to posterior head. Source: patient, family Exam Limitations: no limitations History of Present Illness Time seen by provider: 19:37 Initial Comments Patient presents to the ED with c/o laceration to the posterior scalp. Patient reports losing his balance and hitting his head on the handle of his dresser. Denies LOC, LOCKHART, confusion, dizziness. Location Injury Occurred: home Occurred: just prior to arrival Location: other (posterior scalp) Method of Injury: fell Loss of Consciousness: no loss of consciousness Allergies and Home Medications Allergies Coded Allergies: No Known Drug Allergies (Unverified , 10/05/10) Home Medications Amlodipine Besylate 10 Mg Tablet, 10 MG PO DAILY @ 1200, (Reported) Gabapentin 600 Mg Tablet, 300 MG PO BID, (Reported) TAKES 1/2 (600MG) TABLET Hydrochlorothiazide 12.5 Mg Cap, 12.5 MG PO DAILY, (Reported) Levothyroxine Sodium 125 Mcg Tablet, 125 MCG PO DAILY, (Reported) Magnesium Oxide 400 Mg Tablet, 400 MG PO DAILY, (Reported) Metoprolol Tartrate 100 Mg Tablet, 100 MG PO BID, (Reported) Multivitamin 1 Each Tablet, 1 TAB PO DAILY, (Reported) Omeprazole 20 Mg Tablet.dr, 20 MG PO DAILY, (Reported) Oxybutynin Chloride 10 Mg Tab.er.24, 10 MG PO DAILY, (Reported) Potassium Chloride 10 Meq Tab.prt.sr, 10 MEQ PO BID, (Reported) Tamsulosin HCl 0.4 Mg Cap, 0.4 MG PO DAILY, #30 Prescribed by: NI ALVAREZ on 02/16/17 0630 Tramadol HCl 50 Mg Tablet, 50 MG PO TID, (Reported) Constitutional: No chills, No dizziness, No fever, No malaise Eyes: No Symptoms Reported Ears, Nose, Mouth, Throat: no symptoms reported Respiratory: No cough, No short of breath Cardiovascular: No chest pain, No syncope Gastrointestinal: no symptoms reported Genitourinary: no symptoms reported Musculoskeletal: No back pain, No joint pain, No neck pain Skin: see HPI Psychiatric/Neurological: Denies Cognitive Dysfunction, Denies Headache, Denies Numbness, Denies [place] Seizures, Denies Tingling, Denies Tonic Clonic Seizures, Denies Unable to Move Lower Ext, Denies Unable to Move Upper Ext, Denies Weakness All Other Systems Reviewed Negative Unless Noted: Yes (Negative excepted noted.) Past Wbrawdi-Rsxlbs-Svszeb Hx Patient Social History Alcohol Use: Occasionally Uses Recreational Drug Use: No Smoking Status: Former Smoker Type Used: Cigarettes 2nd Hand Smoke Exposure: No Recent Foreign Travel: No Contact w/Someone Who Travel: No Recent Infectious Disease Expo: No Recent Hopitalizations: No Immunizations Up To Date Tetanus Booster (TDap): Unknown Seasonal Allergies Seasonal Allergies: Yes Surgeries HX Surgeries: Yes ( R ROTATOR CUFF, R FOOT, direct larynoscopy, arm fx, port) Surgeries: Orthopedic, Vasectomy Respiratory Hx Respiratory Disorders: No Cardiovascular Hx Cardiac Disorders: Yes Cardiac Disorders: Hypertension Neurological Hx Neurological Disorders: Yes Neurological Disorders: Neuropathy Reproductive System Hx Reproductive Disorders: No Sexually Transmitted Disease: No Genitourinary Hx Genitourinary Disorders: Yes (overactive bladder) Gastrointestinal Hx Gastrointestinal Disorders: Yes Gastrointestinal Disorders: Polyps Musculoskeletal Hx Musculoskeletal Disorders: Yes (RIGHT SHOULDER SX, LEFT SHOULDER FX 06/14/15) Musculoskeletal Disorders: Fractures Endocrine Hx Endocrine Disorders: Yes ("BORDERLINE" DIABETES--NO MEDICATIONS AND DOES NOT FOLLOW DIET) Endocrine Disorders: Hypothyroidsim HEENT HX ENT Disorders: Yes (CATARACTS REMOVED) HEENT Disorders: Cataract Loss of Vision: Denies Hearing Impairment: Denies 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) Psychosocial Hx Psychiatric Problems: Yes Behavioral Health Disorders: Anxiety Integumentary HX Skin/Integumentary Disorder: No Blood Transfusions Hx Blood Disorders: No Reviewed Nursing Assessment Reviewed/Agree w Nursing PMH: Yes Family Medical History Significant Family History: No Pertinent Family Hx Family Medial History: Aneurysm 19 FATHER Colon cancer 19 MOTHER Physical Exam Vital Signs Vital Sign - Last 12Hours 04/04/17 19:29 Temp 97.6 Pulse 78 Resp 18 B/P (MAP) 145/73 Pulse Ox 95 O2 Delivery Room Air Capillary Refill : Less Than 3 Seconds General Appearance: WD/WN, no apparent distress HEENT: PERRL/EOMI, normal ENT inspection, TMs normal, pharynx normal, other (4 cm irregular laceration with several flaps of the posterior scalp) Neck: non-tender, full range of motion, supple, normal inspection Cardiovascular: normal peripheral pulses, regular rate, rhythm, no edema, no murmur Respiratory: lungs clear, normal breath sounds, no respiratory distress Gastrointestinal: non tender, soft, No distended Back: normal inspection, no vertebral tenderness Extremities: non-tender, normal inspection, normal capillary refill, pelvis stable Psychiatric: alert, oriented x 3 Crainal Nerves: normal hearing, normal speech, PERRL Coordination/Gait: normal finger to nose, normal gait, negative Romberg's sign Motor/Sensory: no motor deficit, no sensory deficit, no pronator drift Skin: normal color, warm/dry, other (4 cm irregular laceration with several flaps of the posterior scalp) [place] Coma Score Best Eye Response: (4) Open Spontaneously Best Verbal Response: (5) Oriented Best Motor Response: (6) Obeys Commands [place] Total: 15 Laceration Repair : Wound Location: Scalp Wound Length (cm): 4 Wound's Depth, Shape: flap, stellate Wound Explored: clean Betadine Prep?: Yes (and scrubbed with chlorhexidine and sterile saline) Anesthesia: Lidocaine w/ Epi Volume Anesthetic (ccs): 3 Wound Debrided: minimal Suture: Prolene Suture Size: 4-0 Number of Sutures: 8 Layer Closure?: 1 Sterile Dressing Applied?: Yes Progress Blood loss minimal. Patient tolerated the procedure well. Progress/Results/Core Measures Results/Orders My Orders Orders - AMALIA FRANCIS Ct Head/Cervical Spine Wo (04/04/17 19:59) Dipht,Pertuss(Acell),Tet Adult (Boostrix (04/04/17 19:59) Lidocaine/Epi 1% 1:100,000 (Xylocaine /E (04/04/17 19:59) Vital Signs/I&O Blood Pressure Mean: 97 Diagnostic Imaging Diagonstic Imaging: CT Plain Films/CT/US/NM/MRI: c-spine, head Comments FINDINGS: There is prominence of the ventricles and sulci. There is some mild chronic microvascular ischemic disease. There is no hydrocephalus. There is no midline shift. There is no intracranial mass, hemorrhage, or extra-axial fluid collection. The sinuses and mastoid air cells are clear. The calvarium is intact. The alignment of the cervical spine is normal. Vertebral body heights are well maintained. There is no fracture or traumatic subluxation. There is multilevel degenerative disc disease and posterior facet arthropathy. The prevertebral soft tissues are within normal limits. The visualized lung apices are clear. IMPRESSION: No acute intracranial abnormality. There is atrophy and some mild chronic microvascular ischemic disease. Moderate cervical spondylosis without acute fracture or traumatic subluxation. Dictated on workstation # [id number] Reviewed: Reviewed by Me (radiology report reviewed by me) Departure Communication Progress Notes Diagnostic findings discussed with the patient and family Plan for dsch to home. Patient instructed to f/u with Dr. Manzo for recheck and to return to the ED for suture removal in 7-10 days. Impression Impression: Primary Impression: Minor head injury without loss of consciousness Qualified Codes: S09.90XA - Unspecified injury of head, initial encounter Additional Impression: Laceration of scalp without complication Qualified Codes: S01.01XA - Laceration without foreign body of scalp, initial encounter Disposition: HOME, SELF-CARE Condition: Improved Departure-Patient Inst. Decision time for Depature: 20:36 Referrals: JOSE ALEJANDRO MANZO MD (PCP/Family) Primary Care Physician Patient Instructions: Laceration Repair With [place] (DC), Minor Head Injury ( DC) Add. Discharge Instructions: All discharge instructions reviewed with patient and/or family. Voiced understanding. Continue usual home medications. Ice pack for 20 minute intervals as needed for pain. Shower with antibacterial soap beginning tomorrow morning. Apply triple antibiotic ointment twice daily for 3 days. Return to the emergency department in 7 days for staple removal. No strenuous activity, lifting, or activities which may result in head injury for 7 days. Follow-up with your family practitioner for recheck as an outpatient. Return to the emergency department for worsened pain, headache, dizziness, changes in vision, changes in behavior, slurred speech, numbness, weakness, shortness of air, chest pain, seizure, vomiting, neck pain, back pain, or any other concerns. AMALIA FRANCIS April 04, 2017 19:37
[2017-04-04] MEDS ORDERED: TETANUS,DIPTH,PERTUSS P/F (BOOSTRIX) 0.5 ML VIAL IM STA (19:59)
[2017-04-04] MEDS ORDERED: LIDOCAINE/EPI 1%-1:100,000 (XYLOCAINE) 20ML INJ STA (19:59)
--- NOTE | 2017-04-04 20:26 | Diagnostic Imaging Report ---
PROCEDURE: CT head and CT cervical spine without contrast. TECHNIQUE: Multiple contiguous axial images were obtained through the brain and cervical spine without the use of intravenous contrast. Sagittal and coronal reformations through the cervical spine were then performed. INDICATION: Head and neck pain after fall with lightheadedness. FINDINGS: There is prominence of the ventricles and sulci. There is some mild chronic microvascular ischemic disease. There is no hydrocephalus. There is no midline shift. There is no intracranial mass, hemorrhage, or extra-axial fluid collection. The sinuses and mastoid air cells are clear. The calvarium is intact. The alignment of the cervical spine is normal. Vertebral body heights are well maintained. There is no fracture or traumatic subluxation. There is multilevel degenerative disc disease and posterior facet arthropathy. The prevertebral soft tissues are within normal limits. The visualized lung apices are clear. IMPRESSION: No acute intracranial abnormality. There is atrophy and some mild chronic microvascular ischemic disease. Moderate cervical spondylosis without acute fracture or traumatic subluxation. Dictated by: Dictated on workstation # [id number]
[2017-04-04 21:18] VITALS: BP 136/71
== END 2017-04-04 21:14 | disposition home or self-care (01) ==
LOC: EDUNIT# 19:11 → ER 19:12
DX: S01.01XA Laceration without foreign body of scalp, initial encounter (principal); Z23 Encounter for immunization; I10 Essential (primary) hypertension; Z79.899 Other long term (current) drug therapy; Z87.891 Personal history of nicotine dependence; W18.09XA Striking against other object with subsequent fall, initial encounter; Y92.013 Bedroom of single-family (private) house as the place of occurrence of the external cause; Y99.8 Other external cause status
CPT/HCPCS: 12002; 70450; 72125; 90471; 90715

== ENCOUNTER → 2017-04-08 | Outpatient (CLI) | payer MEDICARE | LOC: CARD 14:16 | PROVIDERS: ATTEND Family Medicine | DX: I10 Essential (primary) hypertension (principal) | CPT/HCPCS: 93005 ==

== ENCOUNTER 2017-04-13 11:31 | Emergency (ER) | payer MEDICARE ==
[~2017-04-13] VITALS: Ht 180.3 cm; Wt 61.4 kg
[2017-04-13 11:40] VITALS: BP 150/94
== END 2017-04-13 11:40 | disposition home or self-care (01) ==
LOC: EDUNIT# 11:31 → ER 11:32
DX: S01.01XD Laceration without foreign body of scalp, subsequent encounter (principal)

== ENCOUNTER 2017-05-28 09:45 | Outpatient (RCR) | payer MEDICARE ==
[2017-04-16 09:22] LABS: BASOPHILS % (AUTO) 0 % (0-10); EOSINOPHILS # (AUTO) 0.1 10^3/uL (0.0-0.3); EOSINOPHILS % (AUTO) 3 % (0-10); LYMPHOCYTES # (AUTO) 0.8 X 10^3 (1.0-4.0); LYMPHOCYTES % (AUTO) 17 % (12-44); MEAN CORPUSCULAR HEMOGLOBIN 31 PG (25-34); MEAN CORPUSCULAR HGB CONC 35 G/DL (32-36); MEAN CORPUSCULAR VOLUME 90 FL (80-99); MEAN PLATELET VOLUME 8.9 FL (7.4-10.4); MONOCYTES # (AUTO) 0.6 X 10^3 (0.0-1.0); MONOCYTES % (AUTO) 13 % (0-12); NEUTROPHILS # (AUTO) 3.3 X 10^3 (1.8-7.8); NEUTROPHILS % (AUTO) 67 % (42-75); PLATELET COUNT 192 10^3/uL (130-400); RED BLOOD COUNT 4.09 10^6/uL (4.35-5.85); RED CELL DISTRIBUTION WIDTH 13.5 % (10.0-14.5); WHITE BLOOD COUNT 4.9 10^3/uL (4.3-11.0)
[2017-04-16 09:42] LABS: ALANINE AMINOTRANSFERASE 14 U/L (0-55); ALBUMIN 3.4 G/DL (3.2-4.5); ANION GAP 8 MMOL/L (5-14); ASPARTATE AMINO TRANSFERASE 20 U/L (5-34); BILIRUBIN,TOTAL 0.6 MG/DL (0.1-1.0); BLOOD UREA NITROGEN 14 MG/DL (7-18); BUN/CREATININE RATIO 16; CARBON DIOXIDE 28 MMOL/L (21-32); CHLORIDE 98 MMOL/L (98-107); CREATININE SERUM 0.89 MG/DL (0.60-1.30); GFR ESTIMATED > 60; GLUCOSE 143 MG/DL (70-105); POTASSIUM 3.8 MMOL/L (3.6-5.0); SODIUM 134 MMOL/L (135-145); TOTAL PROTEIN 6.5 G/DL (6.4-8.2)
[2017-04-16 10:03] LABS: THYROID STIMULATING HORMONE 0.35 UIU/ML (0.35-4.94)
[2017-05-28 10:12] LABS: BASOPHILS % (AUTO) 0 % (0-10); EOSINOPHILS # (AUTO) 0.1 10^3/uL (0.0-0.3); EOSINOPHILS % (AUTO) 3 % (0-10); LYMPHOCYTES # (AUTO) 0.8 X 10^3 (1.0-4.0); LYMPHOCYTES % (AUTO) 16 % (12-44); MEAN CORPUSCULAR HEMOGLOBIN 32 PG (25-34); MEAN CORPUSCULAR HGB CONC 35 G/DL (32-36); MEAN CORPUSCULAR VOLUME 91 FL (80-99); MEAN PLATELET VOLUME 9.1 FL (7.4-10.4); MONOCYTES # (AUTO) 0.6 X 10^3 (0.0-1.0); MONOCYTES % (AUTO) 12 % (0-12); NEUTROPHILS # (AUTO) 3.4 X 10^3 (1.8-7.8); NEUTROPHILS % (AUTO) 69 % (42-75); PLATELET COUNT 199 10^3/uL (130-400); WHITE BLOOD COUNT 4.9 10^3/uL (4.3-11.0)
[2017-05-28 11:03] LABS: ALANINE AMINOTRANSFERASE 17 U/L (0-55); ALBUMIN 3.3 GM/DL (3.2-4.5); ANION GAP 6 MMOL/L (5-14); ASPARTATE AMINO TRANSFERASE 23 U/L (5-34); BILIRUBIN,TOTAL 0.4 MG/DL (0.1-1.0); BLOOD UREA NITROGEN 13 MG/DL (7-18); BUN/CREATININE RATIO 14; CALCIUM 9.1 MG/DL (8.5-10.1); CARBON DIOXIDE 27 MMOL/L (21-32); CHLORIDE 101 MMOL/L (98-107); CREATININE SERUM 0.94 MG/DL (0.60-1.30); GFR ESTIMATED > 60; GLUCOSE 102 MG/DL (70-105); POTASSIUM 3.7 MMOL/L (3.6-5.0); SODIUM 134 MMOL/L (135-145); TOTAL PROTEIN 6.5 GM/DL (6.4-8.2)
[2017-05-28 11:24] LABS: THYROID STIMULATING HORMONE 2.43 UIU/ML (0.35-4.94)
== END 2017-06-03 | disposition home or self-care (01) ==
LOC: ONC 09:45
PROVIDERS: ATTEND Internal Medicine Hematology & Oncology
DX: C12 Malignant neoplasm of pyriform sinus (principal); I10 Essential (primary) hypertension; E03.9 Hypothyroidism, unspecified; E87.6 Hypokalemia; Z72.0 Tobacco use; Z79.899 Other long term (current) drug therapy
CPT/HCPCS: 36591; 80053; 84443; 85025; 99213

== ENCOUNTER → 2017-06-03 | Outpatient (CLI) | payer MEDICARE ==
--- NOTE | 2017-06-03 13:37 | Diagnostic Imaging Report ---
EXAMINATION: PET-CT TECHNIQUE: Serum glucose level at the time of the study is: 114 mg/dL. 12.2 mCi of FDG was administered intravenously followed by obtaining PET images with corresponding noncontrast CT scan images. The CT scan was performed for anatomic correlation and attenuation correction and was not performed according to the diagnostic protocol of the areas covered. The scan was performed from the head to mid thighs. INDICATION: Pharyngeal cancer. COMPARISON: PET/CT of 07/30/2016. FINDINGS: There is symmetric FDG uptake in the brain. There is resolution of the previously seen nasopharyngeal hypermetabolic mass with minimal nonspecific increased FDG uptake seen in the hypopharynx and larynx of questionable significance. In the lungs, there are multiple hypermetabolic nodules with the dominant lesions one in the right lower lobe at the level of the hilum along the major fissure measuring 3.4 x 2.2 cm and the largest in the left lower lobe is a 2 cm nodule compatible with metastatic disease. There is also a small left pleural effusion with focus of increased FDG uptake with maximum SUV of 3.9 within it suggestive of pleural metastasis. There is a focus of increased activity seen within the anterior aspect of the second right rib which appears to be associated with a subacute fracture and is not necessarily related to a bone metastasis. Other osseous structures demonstrate no hypermetabolic lesion. In the abdomen and pelvis: There is urinary tract excretion of the tracer with no suspicious hypermetabolic mass. IMPRESSION: Multiple pulmonary nodules and masses with significant hypermetabolism compatible with metastatic disease. There is also a small left pleural effusion with focus of increased mild hypermetabolism within it suggestive of a pleural-based metastasis. Dictated by: Dictated on workstation # [id number]
== END ==
LOC: RAD 08:36
PROVIDERS: ATTEND Nurse Practitioner Adult Health
DX: R91.8 Other nonspecific abnormal finding of lung field (principal); J90 Pleural effusion, not elsewhere classified; C12 Malignant neoplasm of pyriform sinus

== ENCOUNTER 2017-07-14 14:05 | Outpatient (RCR) | payer MEDICARE ==
[2017-06-17 14:24] LABS: BASOPHILS % (AUTO) 1 % (0-10); EOSINOPHILS # (AUTO) 0.4 10^3/uL (0.0-0.3); EOSINOPHILS % (AUTO) 7 % (0-10); LYMPHOCYTES # (AUTO) 0.9 X 10^3 (1.0-4.0); LYMPHOCYTES % (AUTO) 17 % (12-44); MEAN CORPUSCULAR HEMOGLOBIN 32 PG (25-34); MEAN CORPUSCULAR HGB CONC 34 G/DL (32-36); MEAN CORPUSCULAR VOLUME 92 FL (80-99); MEAN PLATELET VOLUME 9.3 FL (7.4-10.4); MONOCYTES # (AUTO) 0.7 X 10^3 (0.0-1.0); MONOCYTES % (AUTO) 13 % (0-12); NEUTROPHILS # (AUTO) 3.3 X 10^3 (1.8-7.8); NEUTROPHILS % (AUTO) 63 % (42-75); PLATELET COUNT 207 10^3/uL (130-400); RED BLOOD COUNT 4.06 10^6/uL (4.35-5.85); RED CELL DISTRIBUTION WIDTH 13.2 % (10.0-14.5); WHITE BLOOD COUNT 5.3 10^3/uL (4.3-11.0)
[2017-06-17 14:47] LABS: ALANINE AMINOTRANSFERASE 17 U/L (0-55); ALBUMIN 3.3 GM/DL (3.2-4.5); ANION GAP 10 MMOL/L (5-14); ASPARTATE AMINO TRANSFERASE 20 U/L (5-34); BILIRUBIN,TOTAL 0.3 MG/DL (0.1-1.0); BLOOD UREA NITROGEN 15 MG/DL (7-18); BUN/CREATININE RATIO 16; CARBON DIOXIDE 24 MMOL/L (21-32); CHLORIDE 98 MMOL/L (98-107); CREATININE SERUM 0.95 MG/DL (0.60-1.30); GFR ESTIMATED > 60; GLUCOSE 97 MG/DL (70-105); POTASSIUM 3.9 MMOL/L (3.6-5.0); SODIUM 132 MMOL/L (135-145); TOTAL PROTEIN 6.7 GM/DL (6.4-8.2)
[2017-06-30 13:46] LABS: BASOPHILS # (AUTO) 0.1 10^3/uL (0.0-0.1); BASOPHILS % (AUTO) 1 % (0-10); EOSINOPHILS # (AUTO) 0.5 10^3/uL (0.0-0.3); EOSINOPHILS % (AUTO) 8 % (0-10); LYMPHOCYTES % (AUTO) 16 % (12-44); MEAN CORPUSCULAR HEMOGLOBIN 31 PG (25-34); MEAN CORPUSCULAR HGB CONC 34 G/DL (32-36); MEAN CORPUSCULAR VOLUME 91 FL (80-99); MEAN PLATELET VOLUME 8.8 FL (7.4-10.4); MONOCYTES # (AUTO) 0.9 X 10^3 (0.0-1.0); MONOCYTES % (AUTO) 15 % (0-12); NEUTROPHILS # (AUTO) 3.8 X 10^3 (1.8-7.8); NEUTROPHILS % (AUTO) 61 % (42-75); PLATELET COUNT 238 10^3/uL (130-400); RED BLOOD COUNT 4.18 10^6/uL (4.35-5.85); RED CELL DISTRIBUTION WIDTH 12.7 % (10.0-14.5); WHITE BLOOD COUNT 6.3 10^3/uL (4.3-11.0)
[2017-06-30 14:15] LABS: ALANINE AMINOTRANSFERASE 16 U/L (0-55); ALBUMIN 3.2 GM/DL (3.2-4.5); ANION GAP 9 MMOL/L (5-14); ASPARTATE AMINO TRANSFERASE 22 U/L (5-34); BILIRUBIN,TOTAL 0.3 MG/DL (0.1-1.0); BLOOD UREA NITROGEN 13 MG/DL (7-18); BUN/CREATININE RATIO 15; CALCIUM 9.1 MG/DL (8.5-10.1); CARBON DIOXIDE 24 MMOL/L (21-32); CHLORIDE 101 MMOL/L (98-107); CREATININE SERUM 0.85 MG/DL (0.60-1.30); GFR ESTIMATED > 60; GLUCOSE 91 MG/DL (70-105); POTASSIUM 3.9 MMOL/L (3.6-5.0); SODIUM 134 MMOL/L (135-145); TOTAL PROTEIN 6.7 GM/DL (6.4-8.2)
[~2017-07-14] VITALS: Ht 213.4 cm; Wt 61.7 kg
[~2017-07-14 14:05] MED LIST changes: +NIVOLUMAB IV SCH; +NS IV 500 ML (CANCER CENTER) 500 ML ONE; +NS IV SCH
[2017-07-14 14:33] LABS: BASOPHILS % (AUTO) 0 % (0-10); EOSINOPHILS # (AUTO) 0.6 10^3/uL (0.0-0.3); EOSINOPHILS % (AUTO) 10 % (0-10); LYMPHOCYTES # (AUTO) 0.7 X 10^3 (1.0-4.0); LYMPHOCYTES % (AUTO) 13 % (12-44); MEAN CORPUSCULAR HEMOGLOBIN 31 PG (25-34); MEAN CORPUSCULAR HGB CONC 35 G/DL (32-36); MEAN CORPUSCULAR VOLUME 88 FL (80-99); MEAN PLATELET VOLUME 8.6 FL (7.4-10.4); MONOCYTES # (AUTO) 0.8 X 10^3 (0.0-1.0); MONOCYTES % (AUTO) 14 % (0-12); NEUTROPHILS # (AUTO) 3.5 X 10^3 (1.8-7.8); NEUTROPHILS % (AUTO) 62 % (42-75); PLATELET COUNT 254 10^3/uL (130-400); RED BLOOD COUNT 4.08 10^6/uL (4.35-5.85); RED CELL DISTRIBUTION WIDTH 12.3 % (10.0-14.5); WHITE BLOOD COUNT 5.7 10^3/uL (4.3-11.0)
[2017-07-14 14:54] LABS: ANION GAP 8 MMOL/L (5-14); CARBON DIOXIDE 27 MMOL/L (21-32); CHLORIDE 95 MMOL/L (98-107); POTASSIUM 3.7 MMOL/L (3.6-5.0); SODIUM 130 MMOL/L (135-145)
[2017-07-14 14:55] LABS: ALANINE AMINOTRANSFERASE 19 U/L (0-55); ALBUMIN 3.2 GM/DL (3.2-4.5); ASPARTATE AMINO TRANSFERASE 22 U/L (5-34); BILIRUBIN,TOTAL 0.3 MG/DL (0.1-1.0); BLOOD UREA NITROGEN 13 MG/DL (7-18); BUN/CREATININE RATIO 15; CALCIUM 9.1 MG/DL (8.5-10.1); CREATININE SERUM 0.88 MG/DL (0.60-1.30); GFR ESTIMATED > 60; GLUCOSE 93 MG/DL (70-105); TOTAL PROTEIN 6.5 GM/DL (6.4-8.2)
[2017-07-14 15:15] LABS: THYROID STIMULATING HORMONE 1.79 UIU/ML (0.35-4.94)
[2017-07-14] MEDS ORDERED: NS IV 500 ML (CANCER CENTER) 500 ML ONE (15:17)
[2017-07-25] MEDS ORDERED: LORA1TAB PO (12:46)
[2017-07-25] MEDS ORDERED: DONE10TA48 SL (12:46)
[2017-07-25] MEDS ORDERED: CARB15DR3 OU (12:46)
[2017-07-25] MEDS ORDERED: TAMS0.4C2 PO (12:46)
[2017-07-25] MEDS ORDERED: LEVO100T7 PO (12:47)
== END 2017-08-21 14:40 | disposition home or self-care (01) ==
LOC: ONC 14:05
PROVIDERS: ATTEND Internal Medicine Hematology & Oncology
DX: Z51.11 Encounter for antineoplastic chemotherapy (principal); C12 Malignant neoplasm of pyriform sinus; I10 Essential (primary) hypertension; E03.9 Hypothyroidism, unspecified; E87.6 Hypokalemia; Z72.0 Tobacco use; Z79.899 Other long term (current) drug therapy
CPT/HCPCS: 36591; 80053; 84443; 85025; 96413

== ENCOUNTER 2017-07-19 02:12 | Emergency (ER) | payer MEDICARE ==
[~2017-07-19] VITALS: Ht 180.3 cm; Wt 61.4 kg
[~2017-07-19 02:12] MED LIST changes: -NIVOLUMAB IV SCH; -NS IV 500 ML (CANCER CENTER) 500 ML ONE; -NS IV SCH
[2017-07-19 03:54] LABS: ANION GAP 13 MMOL/L (5-14); BLOOD UREA NITROGEN 14 MG/DL (7-18); BUN/CREATININE RATIO 17; CALCIUM 8.9 MG/DL (8.5-10.1); CARBON DIOXIDE 19 MMOL/L (21-32); CHLORIDE 102 MMOL/L (98-107); CREATININE SERUM 0.82 MG/DL (0.60-1.30); GFR ESTIMATED > 60; GLUCOSE 157 MG/DL (70-105); POTASSIUM 3.7 MMOL/L (3.6-5.0); SODIUM 134 MMOL/L (135-145)
[2017-07-19 04:05] LABS: BILIRUBIN,URINE NEGATIVE (NEGATIVE); KETONES,URINE NEGATIVE (NEGATIVE); LEUKOCYTE ESTERASE ,URINE NEGATIVE (NEGATIVE); NITRITE,URINE NEGATIVE (NEGATIVE); PH,URINE 6 (5-9); PROTEIN,URINE 4+ (NEGATIVE); UROBILINOGEN,URINE NORMAL (NORMAL)
--- NOTE | 2017-07-19 04:13 | ED Fall/Injury ---
General Chief Complaint: Hip/Pelvic Problems Stated Complaint: FALL/LT HIP PAIN Nursing Triage Note: L hip pain per EMS, EMS reports patient fell earlier in the day but unknown time Source: patient Exam Limitations: no limitations History of Present Illness Time seen by provider: 02:13 Initial Comments This 72-year-old gentleman with dementia and lung cancer presents to the emergency room after having multiple falls yesterday. Family and EMS report that he had left-sided hip pain. He denies any pain on arrival. He has very mild tenderness of the left hip on palpation but no apparent pain with range of motion. He denies any other injury. He is confused. Family reports he seems a little more confused than usual. They're concerned because he had multiple falls today. He is presently under treatment for his lung cancer. Allergies and Home Medications Allergies Coded Allergies: No Known Drug Allergies (Unverified , 10/05/10) Home Medications Amlodipine Besylate 10 Mg Tablet, 10 MG PO DAILY @ 1200, (Reported) Gabapentin 600 Mg Tablet, 300 MG PO BID, (Reported) TAKES 1/2 (600MG) TABLET Hydrochlorothiazide 12.5 Mg Cap, 12.5 MG PO DAILY, (Reported) Levothyroxine Sodium 125 Mcg Tablet, 125 MCG PO DAILY, (Reported) Magnesium Oxide 400 Mg Tablet, 400 MG PO DAILY, (Reported) Metoprolol Tartrate 100 Mg Tablet, 100 MG PO BID, (Reported) Multivitamin 1 Each Tablet, 1 TAB PO DAILY, (Reported) Omeprazole 20 Mg Tablet.dr, 20 MG PO DAILY, (Reported) Oxybutynin Chloride 10 Mg Tab.er.24, 10 MG PO DAILY, (Reported) Potassium Chloride 10 Meq Tab.prt.sr, 10 MEQ PO BID, (Reported) Tamsulosin HCl 0.4 Mg Cap, 0.4 MG PO DAILY, #30 Prescribed by: NI ALVAREZ on 02/16/17 0630 Tramadol HCl 50 Mg Tablet, 50 MG PO TID, (Reported) Constitutional: no symptoms reported Eyes: No Symptoms Reported Ears, Nose, Mouth, Throat: no symptoms reported Respiratory: no symptoms reported Cardiovascular: no symptoms reported Gastrointestinal: no symptoms reported Genitourinary: no symptoms reported Musculoskeletal: see HPI Skin: no symptoms reported Psychiatric/Neurological: See HPI Past Jijmxvx-Trntlv-Dpcidg Hx Patient Social History Alcohol Use: Denies Use Number of Drinks Today: AA Alcohol Beverage of Choice: Beer Recreational Drug Use: No Smoking Status: Former Smoker Type Used: Cigarettes Former Smoker, Quit: Jul 15, 2016 2nd Hand Smoke Exposure: No Recent Foreign Travel: No Contact w/Someone Who Travel: No Recent Infectious Disease Expo: No Recent Hopitalizations: No Immunizations Up To Date Tetanus Booster (TDap): Unknown Seasonal Allergies Seasonal Allergies: Yes Surgeries History of Surgeries: Yes ( R ROTATOR CUFF, R FOOT, direct larynoscopy, arm fx , port) Surgeries: Orthopedic, Vasectomy Respiratory History of Respiratory Disorde: No Cardiovascular History of Cardiac Disorders: Yes Cardiac Disorders: Hypertension Neurological History of Neurological Disord: Yes Neurological Disorders: Neuropathy Reproductive System Hx Reproductive Disorders: No Sexually Transmitted Disease: No Gastrointestinal History of Gastrointestinal Di: Yes Gastrointestinal Disorders: Polyps Musculoskeletal History of Musculoskeletal Dis: Yes (RIGHT SHOULDER SX, LEFT SHOULDER FX ) Musculoskeletal Disorders: Fractures Endocrine History of Endocrine Disorders: Yes ("BORDERLINE" DIABETES--NO MEDICATIONS AND DOES NOT FOLLOW DIET) Endocrine Disorders: Hypothyroidsim HEENT HEENT Disorders: Cataract Loss of Vision: Denies Hearing Impairment: Denies 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) Cancer: Lung Psychosocial History of Psychiatric Problem: Yes Behavioral Health Disorders: Anxiety Integumentary History of Skin or Integumenta: No Blood Transfusions History of Blood Disorders: No Family Medical History Significant Family History: No Pertinent Family Hx Family Medial History: Aneurysm 19 FATHER Colon cancer 19 MOTHER Physical Exam Vital Signs Vital Sign - Last 12Hours 07/19/17 02:15 Temp 98.7 Pulse 76 Resp 18 B/P (MAP) 168/73 Pulse Ox 98 Capillary Refill : Less Than 3 Seconds General Appearance: WD/WN, no apparent distress HEENT: PERRL/EOMI, normal ENT inspection, other (oropharynx extremely dry) Neck: supple, normal inspection Cardiovascular: regular rate, rhythm, no edema, no murmur Respiratory: lungs clear, normal breath sounds, no respiratory distress, no accessory muscle use Gastrointestinal: normal bowel sounds, non tender, soft Extremities: normal inspection, no pedal edema, other (slight tenderness over the left lateral and posterior hip) Neurologic/Psychiatric: roller man II-XII nml as tested, no motor/sensory deficits, alert, normal mood/affect, other (confused speech, disoriented) Skin: normal color, warm/dry [place] Coma Score Best Eye Response: (4) Open Spontaneously Best Verbal Response: (4) Confused Conversation (baseline state due to dementia ) Best Motor Response: (6) Obeys Commands [place] Total: 15 Laceration Repair : Suture Size: 4-0 Progress/Results/Core Measures Results/Orders Lab Results Laboratory Tests Test 07/19/17 03:30 07/19/17 03:35 Range/Units Sodium Level 134 L 135-145 MMOL/L Potassium Level 3.7 3.6-5.0 MMOL/L Chloride Level 102 98-107 MMOL/L Carbon Dioxide Level 19 L 21-32 MMOL/L Anion Gap 13 5-14 MMOL/L Blood Urea Nitrogen 14 7-18 MG/DL Creatinine 0.82 0.60-1.30 MG/DL Estimat Glomerular Filtration Rate > 60 BUN/Creatinine Ratio 17 Glucose Level 157 H 70-105 MG/DL Calcium Level 8.9 8.5-10.1 MG/DL Urine Color YELLOW Urine Clarity CLEAR Urine pH 6 5-9 Urine Specific [place] 1.020 1.016-1.022 Urine Protein 4+ NEGATIVE Urine Glucose (UA) 2+ H NEGATIVE Urine Ketones NEGATIVE NEGATIVE Urine Nitrite NEGATIVE NEGATIVE Urine Bilirubin NEGATIVE NEGATIVE Urine Urobilinogen NORMAL NORMAL MG/DL Urine Leukocyte Esterase NEGATIVE NEGATIVE Urine RBC (Auto) NEGATIVE NEGATIVE Urine RBC NONE /HPF Urine WBC NONE /HPF Urine Squamous Epithelial Cells 5-10 /HPF Urine Crystals NONE /LPF Urine Bacteria NEGATIVE /HPF Urine Casts NONE /LPF Urine Mucus NEGATIVE /LPF Urine Culture Indicated NO My Orders Orders - NI SHARP MD Pelvis (07/19/17 02:22) Hip, Left, 2 Views (07/19/17 02:22) Basic Metabolic Panel (07/19/17 03:18) Ua Culture If Indicated (07/19/17 03:18) Saline Lock/Iv-Start (07/19/17 03:18) Vital Signs/I&O Vital Sign - Last 12Hours 07/19/17 07/19/17 02:15 04:35 Temp 98.7 98.7 Pulse 76 76 Resp 18 18 B/P (MAP) 168/73 Pulse Ox 98 98 Blood Pressure Mean: 104 Progress Note : Progress Note Workup was unremarkable and patient was feeling well. He was discharged into the care of his family. Diagnostic Imaging Diagonstic Imaging: Xray Plain Films/CT/US/NM/MRI: pelvis, hip Comments Pelvis and left hip x-rays viewed by me. Report not yet available. No acute fractures or dislocations appreciated. Departure Impression Impression: Primary Impression: Fall on same level Qualified Codes: W18.30XA - Fall on same level, unspecified, initial encounter Additional Impression: Left hip pain Disposition: 01 HOME, SELF-CARE Condition: Improved Departure-Patient Inst. Decision time for Depature: 04:16 Referrals: JOSE ALEJANDRO MANZO MD (PCP/Family) Primary Care Physician Patient Instructions: Preventing Falls in the Older Adult Add. Discharge Instructions: Encourage Filiberto to walk with assistance or a walker. Follow-up with your primary care provider as soon as possible. Return to the ER if symptoms worsen or new symptoms develop. All discharge instructions reviewed with patient and/or family. Voiced understanding. NI SHARP MD Jul 19, 2017 4:13 am
[2017-07-19 04:35] VITALS: BP 168/73
--- NOTE | 2017-07-21 16:52 | RADIOLOGY REPORT ---
Patient name: TOVA CORREA ACC: [id number] : 1945 Age:72 years Room: Class: Emergency Gender: Male ORD DR: Phone: ATT DR: NI SHARP MD Phone: Procedure: PELVIS, HIP, LEFT, 2 VIEWS ORD Date: 07/19/2017 2:57 AM Reason for Study: Final Report EXAM: PELVIS, HIP, LEFT, 2 VIEWS INDICATION: Left hip and pelvis pain. Fall. COMPARISON: None. FINDINGS: No fracture or malalignment. Moderate degenerative changes in the right hip and visualized lower lumbar spine. Coarse arterial calcifications. The sacrum is obscured by bowel contents. IMPRESSION: No acute radiographic findings in the pelvis or left hip. Dictated by: Created by: Panda Conley on 07/19/2017 7:01 AM Transcribed by: DAVIS 07/19/2017 7:11 AM JOSH
--- NOTE | 2017-07-21 16:54 | RADIOLOGY REPORT ---
Patient name: TOVA CORREA ACC: [id number] : 1945 Age:72 years Room: Class: Emergency Gender: Male ORD DR: Phone: ATT DR: NI SHARP MD Phone: Procedure: PELVIS, HIP, LEFT, 2 VIEWS ORD Date: 07/19/2017 2:57 AM Reason for Study: Final Report EXAM: PELVIS, HIP, LEFT, 2 VIEWS INDICATION: Left hip and pelvis pain. Fall. COMPARISON: None. FINDINGS: No fracture or malalignment. Moderate degenerative changes in the right hip and visualized lower lumbar spine. Coarse arterial calcifications. The sacrum is obscured by bowel contents. IMPRESSION: No acute radiographic findings in the pelvis or left hip. Dictated by: Created by: Panda Conley on 07/19/2017 7:01 AM Transcribed by: DAVIS 07/19/2017 7:11 AM JOSH
== END 2017-07-19 04:35 | disposition home or self-care (01) ==
LOC: EDUNIT# 02:12 → ER 02:13
DX: M25.552 Pain in left hip (principal); I10 Essential (primary) hypertension; F03.90 Unspecified dementia, unspecified severity, without behavioral disturbance, psychotic disturbance, mood disturbance, and anxiety; C34.90 Malignant neoplasm of unspecified part of unspecified bronchus or lung; E03.9 Hypothyroidism, unspecified; F41.9 Anxiety disorder, unspecified; Z80.0 Family history of malignant neoplasm of digestive organs; Z86.010 Personal history of colon polyps; Z87.891 Personal history of nicotine dependence; Z98.52 Vasectomy status; W18.30XA Fall on same level, unspecified, initial encounter
CPT/HCPCS: 36415; 72170; 73502; 80048; 81000

== ENCOUNTER → 2017-07-22 | Outpatient (CLI) | payer MEDICARE ==
--- NOTE | 2017-07-22 11:50 | Diagnostic Imaging Report ---
PROCEDURE: CT pelvis without contrast. TECHNIQUE: Multiple contiguous axial images were obtained through the pelvis without the use of intravenous contrast. Sagittal and coronal reformations were performed. INDICATION: Severe hip pain. FINDINGS: There are moderate degenerative changes in the lumbar spine. The SI joints are unremarkable. There is a mildly comminuted and minimally fragmented fracture of the left greater trochanter. The femoral neck appears to remain intact. There is no other fracture or dislocation. Soft tissues are unremarkable. There are bilateral fat-containing inguinal hernias. IMPRESSION: Comminuted and nondisplaced greater trochanteric fracture of the left femur. Degenerative changes in the lumbar spine. Bilateral fat-containing inguinal hernias. Dictated by: Dictated on workstation # [id number]
--- NOTE | 2017-07-22 11:52 | Diagnostic Imaging Report ---
PROCEDURE: CT left lower extremity without contrast. TECHNIQUE: Multiple contiguous axial images were obtained through the left lower extremity without the use of intravenous contrast. Sagittal and coronal reformations were then performed. INDICATION: Pain after fall. FINDINGS: There is a mildly comminuted fractures through the greater trochanter to the left femur. The femoral neck appears to remain intact. Femoral head maintains a normal relationship to the acetabulum. The obturator ring is intact. Soft tissues are unremarkable. IMPRESSION: Mildly comminuted essentially nondisplaced greater trochanteric fracture, otherwise unremarkable. Dictated by: Dictated on workstation # [id number]
== END ==
LOC: RAD 10:32
PROVIDERS: ATTEND Family Medicine
DX: S72.115A Nondisplaced fracture of greater trochanter of left femur, initial encounter for closed fracture (principal); W19.XXXA Unspecified fall, initial encounter; Y99.8 Other external cause status
CPT/HCPCS: 72192; 73700

== ENCOUNTER 2017-07-25 00:12 | Inpatient (IN) | payer MEDICARE ==
[2017-07-25] VITALS (11 sets, daily range): BP systolic 141–189; BP diastolic 67–89
[~2017-07-25] VITALS: Ht 182.9 cm; Wt 60.8 kg
[2017-07-25] MEDS ORDERED: fentaNYL INJECTION 100 MCG/2 ML AMP IVP STA (01:14)
[2017-07-25] MEDS ORDERED: D5 1/2 NS 1000 ML IV SOLUTION 1,000 ML IV ONE (01:15)
[2017-07-25 01:43] LABS: BASOPHILS % (AUTO) 0 % (0-10); EOSINOPHILS # (AUTO) 0.4 10^3/uL (0.0-0.3); LYMPHOCYTES # (AUTO) 0.6 X 10^3 (1.0-4.0); LYMPHOCYTES % (AUTO) 8 % (12-44); MEAN CORPUSCULAR HEMOGLOBIN 30 PG (25-34); MEAN CORPUSCULAR HGB CONC 34 G/DL (32-36); MEAN CORPUSCULAR VOLUME 87 FL (80-99); MEAN PLATELET VOLUME 9.2 FL (7.4-10.4); MONOCYTES # (AUTO) 0.8 X 10^3 (0.0-1.0); MONOCYTES % (AUTO) 9 % (0-12); NEUTROPHILS # (AUTO) 7.3 X 10^3 (1.8-7.8); PLATELET COUNT 280 10^3/uL (130-400); RED BLOOD COUNT 4.45 10^6/uL (4.35-5.85); RED CELL DISTRIBUTION WIDTH 12.3 % (10.0-14.5); WHITE BLOOD COUNT 9.1 10^3/uL (4.3-11.0)
[2017-07-25 01:44] LABS: EOSINOPHILS % (AUTO) 4 % (0-10); NEUTROPHILS % (AUTO) 79 % (42-75)
[2017-07-25 01:52] LABS: INR 1.1 (0.8-1.4); PROTHROMBIN TIME PATIENT 14.4 SEC (12.2-14.7)
[2017-07-25 02:10] LABS: ALANINE AMINOTRANSFERASE 58 U/L (0-55); ALBUMIN 3.3 GM/DL (3.2-4.5); ANION GAP 13 MMOL/L (5-14); ASPARTATE AMINO TRANSFERASE 52 U/L (5-34); BILIRUBIN,TOTAL 0.7 MG/DL (0.1-1.0); BLOOD UREA NITROGEN 17 MG/DL (7-18); BUN/CREATININE RATIO 21; CALCIUM 9.4 MG/DL (8.5-10.1); CARBON DIOXIDE 24 MMOL/L (21-32); CHLORIDE 98 MMOL/L (98-107); CREATININE SERUM 0.81 MG/DL (0.60-1.30); GFR ESTIMATED > 60; GLUCOSE 143 MG/DL (70-105); POTASSIUM 3.6 MMOL/L (3.6-5.0); SODIUM 135 MMOL/L (135-145); TOTAL PROTEIN 7.3 GM/DL (6.4-8.2)
[2017-07-25] MEDS: fentaNYL INJECTION 100 MCG/2 ML AMP IV PRN ×3 (03:17→20:50)
[2017-07-25] MEDS ORDERED: morphine INJ 4 MG/ML 1 ML (VIAL/SYRINGE) ONE (03:20)
[2017-07-25] MEDS: morphine INJ 4 MG/ML 1 ML (VIAL/SYRINGE) IVP PRN ×2 (03:28→05:16)
[2017-07-25] MEDS ORDERED: D5 1/2 NS 1000 ML IV SOLUTION 1,000 ML IV SCH (03:45)
[2017-07-25] MEDS ORDERED: CATHETER FLUSH 10 ML SYR IV PRN (03:45)
[2017-07-25 06:13] LABS: BASOPHILS % (AUTO) 0 % (0-10); EOSINOPHILS # (AUTO) 0.1 10^3/uL (0.0-0.3); EOSINOPHILS % (AUTO) 1 % (0-10); LYMPHOCYTES # (AUTO) 0.5 X 10^3 (1.0-4.0); LYMPHOCYTES % (AUTO) 5 % (12-44); MEAN CORPUSCULAR HEMOGLOBIN 30 PG (25-34); MEAN CORPUSCULAR HGB CONC 34 G/DL (32-36); MEAN CORPUSCULAR VOLUME 87 FL (80-99); MEAN PLATELET VOLUME 8.9 FL (7.4-10.4); MONOCYTES # (AUTO) 0.7 X 10^3 (0.0-1.0); MONOCYTES % (AUTO) 8 % (0-12); NEUTROPHILS # (AUTO) 7.2 X 10^3 (1.8-7.8); NEUTROPHILS % (AUTO) 85 % (42-75); PLATELET COUNT 254 10^3/uL (130-400); RED BLOOD COUNT 4.31 10^6/uL (4.35-5.85); RED CELL DISTRIBUTION WIDTH 12.3 % (10.0-14.5); WHITE BLOOD COUNT 8.5 10^3/uL (4.3-11.0)
[2017-07-25 06:35] LABS: ALANINE AMINOTRANSFERASE 51 U/L (0-55); ALBUMIN 3.1 GM/DL (3.2-4.5); ANION GAP 13 MMOL/L (5-14); ASPARTATE AMINO TRANSFERASE 42 U/L (5-34); BILIRUBIN,TOTAL 0.6 MG/DL (0.1-1.0); BLOOD UREA NITROGEN 12 MG/DL (7-18); BUN/CREATININE RATIO 16; CALCIUM 8.6 MG/DL (8.5-10.1); CARBON DIOXIDE 22 MMOL/L (21-32); CHLORIDE 97 MMOL/L (98-107); CREATININE SERUM 0.74 MG/DL (0.60-1.30); GFR ESTIMATED > 60; GLUCOSE 126 MG/DL (70-105); POTASSIUM 3.3 MMOL/L (3.6-5.0); SODIUM 132 MMOL/L (135-145); TOTAL PROTEIN 6.9 GM/DL (6.4-8.2)
[2017-07-25] MEDS: CATHETER FLUSH 10 ML SYR IV SCH ×3 (06:59→22:05)
--- NOTE | 2017-07-25 07:13 | ED Fall/Injury ---
General Chief Complaint: Trauma-Non Activation Stated Complaint: L HIP INTERTROCHANTERIC FX;DEMENTIA,THROAT & Nursing Triage Note: retirement staff reports patient fell out of bed. patient denies pain at this time Source: patient (PT IS POOR HISTORIAN--HAS DEMENTIA/IS CONFUSED), EMS, spouse ( ARRIVES LATER AND GIVES ADDITIONAL INFORMATION) Exam Limitations: other (PT IS CONFUSED/HAS DEMENTIA) History of Present Illness Time seen by provider: 00:12 Initial Comments PT ARRIVES VIA EMS FROM [facility] PT HAD MULTIPLE FALLS ON 07/18/17 AND C/O LEFT HIP PAIN AND WAS SEEN IN ER ON . NO INJURY WAS NOTED ON PLAIN XRAYS. PT SAW DR MANZO ON 07/21/[address] SCAN WAS DONE ON 07/22/17 AND SHOWED FRACTURE OF GREATER TROCHANTER WITH AN INTACT FEMORAL NECK. PT WAS PLACED IN [facility] ON 07/23/17 PT HAD ANOTHER FALL TONIGHT AT THE [facility], APPROXIMATELY 45 MINUTES PRIOR TO CALLING EMS--UNWITNESSED--AND IS C/O PAIN TO LEFT HIP AGAIN. 0045-- IS NOW HERE AND GIVES ADDITIONAL INFORMATION: PT HAS DEMENTIA AND STATES HE HAS BEEN HAVING INCREASING CONFUSION AND NOW HE IS EXTREMELY CONFUSED. 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 NO KNOWN METS TO BRAIN. PCP: DR. MANZO Allergies and Home Medications Allergies Coded Allergies: No Known Drug Allergies (Unverified , 10/05/10) Home Medications Amlodipine Besylate 10 Mg Tablet, 10 MG PO DAILY @ 1200, (Reported) Gabapentin 600 Mg Tablet, 300 MG PO BID, (Reported) TAKES 1/2 (600MG) TABLET Hydrochlorothiazide 12.5 Mg Cap, 12.5 MG PO DAILY, (Reported) Levothyroxine Sodium 125 Mcg Tablet, 125 MCG PO DAILY, (Reported) Magnesium Oxide 400 Mg Tablet, 400 MG PO DAILY, (Reported) Metoprolol Tartrate 100 Mg Tablet, 100 MG PO BID, (Reported) Multivitamin 1 Each Tablet, 1 TAB PO DAILY, (Reported) Omeprazole 20 Mg Tablet.dr, 20 MG PO DAILY, (Reported) Oxybutynin Chloride 10 Mg Tab.er.24, 10 MG PO DAILY, (Reported) Potassium Chloride 10 Meq Tab.prt.sr, 10 MEQ PO BID, (Reported) Tamsulosin HCl 0.4 Mg Cap, 0.4 MG PO DAILY, #30 Prescribed by: NI ALVAREZ on 02/16/17 0630 Tramadol HCl 50 Mg Tablet, 50 MG PO TID, (Reported) Constitutional: other (PT UNABLE TO GIVE ANY RELEVANT INFORMATION) Musculoskeletal: see HPI Psychiatric/Neurological: See HPI Past Ozjbhmd-Luwnwf-Czddmd Hx Patient Social History Alcohol Use: Past History (HISTORY OF ABUSE--1/2 PINT OF LIQUOR PLUS BEER DAILY --QUIT 2015) Alcohol Beverage of Choice: Beer Recreational Drug Use: No Smoking Status: Former Smoker (1 PPD, QUIT 2015) Type Used: Cigarettes Former Smoker, Quit: Jun 24, 2016 2nd Hand Smoke Exposure: No Recent Foreign Travel: No Contact w/Someone Who Travel: No Recent Infectious Disease Expo: No Recent Hopitalizations: No Physical Abuse: No Sexual Abuse: No Immunizations Up To Date Tetanus Booster (TDap): Unknown Seasonal Allergies Seasonal Allergies: Yes Surgeries History of Surgeries: Yes ( R ROTATOR CUFF; LEFT HUMERUS FX/ORIF 2014; 2 RIGHT FOOT SURGERIES; REMOVAL OF JENKINS'S NEUROMA RIGHT FOOT; G-TUBE PLACEMENT; PORT; LARYNGOSCOPIES + LARYNGEAL BIOPSIES; COLONOSCOPY) Surgeries: Orthopedic, Vasectomy Respiratory History of Respiratory Disorde: Yes (THROAT CANCER WITH BILATERAL LUNG METS) Cardiovascular History of Cardiac Disorders: Yes Cardiac Disorders: Hypertension Neurological History of Neurological Disord: Yes Neurological Disorders: Dementia, Neuropathy Reproductive System Hx Reproductive Disorders: No Sexually Transmitted Disease: No Genitourinary History of Genitourinary Disor: No Gastrointestinal History of Gastrointestinal Di: Yes Gastrointestinal Disorders: Polyps Musculoskeletal History of Musculoskeletal Dis: Yes (RIGHT SHOULDER SX, LEFT SHOULDER FX/ORIF ; CRUSH INJURY RIGHT FOOT WITH 2 SURGERIES THEN RIGHT FOOT JENKINS'S NEUROMA W/REMOVAL; FREQUENT FALLS. 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 ) Cancer: Lung Did You Recieve Any Treatments: Yes Type of Tx Receive: Chemotherapy, Radiation Psychosocial History of Psychiatric Problem: Yes Behavioral Health Disorders: Anxiety Suicide Risk Score: 0 Integumentary History of Skin or Integumenta: No Blood Transfusions History of Blood Disorders: No Adverse Reaction to a Blood Tr: No Family Medical History Family Medial History: Aneurysm 19 FATHER Colon cancer 19 MOTHER Physical Exam Vital Signs Vital Sign - Last 12Hours 07/25/17 00:14 Temp 98.4 Pulse 80 Resp 18 B/P (MAP) 177/91 Pulse Ox 98 Capillary Refill : Less Than 3 SecondsLess Than 3 Seconds General Appearance: no apparent distress, thin, other (PT WITH LEFT HIP AND KNEE COMPLETELY FLEXED AND IN "FROG LEG" POSITION. ) HEENT: other (VERY DRY ORAL MUCOSA. POOR DENTITION) Neck: non-tender, full range of motion, supple Cardiovascular: regular rate, rhythm, no murmur Respiratory: normal breath sounds, no respiratory distress Gastrointestinal: soft Back: no CVA tenderness, no vertebral tenderness Extremities: other (TENDERNESS TO LEFT HIP AND PAIN WITH MOVEMENT OF HIP) Neurologic/Psychiatric: no motor/sensory deficits, alert, normal mood/affect, other (VERY TALKATIVE BUT SPEECH IS MOSTLY NON-SENSICAL. CAN ANSWER SIMPLE YES/ NO QUESTIONS APPROPRIATELY. ) Skin: normal color, warm/dry Luisito Coma Score Best Eye Response: (4) Open Spontaneously Best Verbal Response: (4) Confused Conversation Best Motor Response: (6) Obeys Commands Luisito Total: 14 Laceration Repair : Suture Size: 4-0 Progress/Results/Core Measures Results/Orders My Orders Orders - JOSEPH TATE DO Femur, Left, 2 Views (07/25/17 00:23) Pelvis (07/25/17 00:23) Hip, Left, 2 Views (07/25/17 00:23) Ct Head Wo (07/25/17 00:44) Vital Signs/I&O Vital Sign - Last 12Hours 07/25/17 00:14 Temp 98.4 Pulse 80 Resp 18 B/P (MAP) 177/91 Pulse Ox 98 Blood Pressure Mean: 119 Progress Note : Progress Note NO DETERIORATION IN PT'S CONDITION DURING ER STAY Diagnostic Imaging Comments XRAYS PELVIS/LEFT HIP AND FEMUR--NEW COMPLETE INTERTROCHANTERIC FRACTURE-- CHANGE FROM PREVIOUS XRAYS. PENDING RADIOLOGIST REVIEW Reviewed: Reviewed by Me Departure Communication (Admissions) Progress Notes 010--ATTEMPTING TO CONTACT DR. MANZO, MESSAGE LEFT ON CELL PHONE 0110--SPOKE WITH DR. LAW, ORTHOPEDIC SURGEON HELIARC WELDER. ACCEPTS PT FOR ADMIT. 0648--DR. MANZO CALLED, HE WILL SEE PT IN CONSULT. Impression Impression: Primary Impression: Closed left hip fracture Additional Impressions: Dementia METASTATIC LARYNGEAL CANCER TO LUNGS Disposition: ADMITTED INPATIENT Condition: Stable Admissions Decision to Admit Reason: Admit from ER (Trauma) Decision to Admit/Date: Jul 25, 2017 Time/Decision to Admit Time: 01:10 Departure-Patient Inst. Referrals: JOSE ALEJANDRO MANZO MD (PCP) Primary Care Physician JOSEPH TATE DO Jul 25, 2017 07:13
--- NOTE | 2017-07-25 07:18 | Diagnostic Imaging Report ---
INDICATION: Fall with hip pain. COMPARISON: Left femur radiographs performed concurrently. TECHNIQUE: AP view of the pelvis. FINDINGS: Osteoporosis. Acute mildly comminuted intertrochanteric fracture of the proximal left femur. No associated coxa valga or coxa vera angulation. No discrete fracture within the pelvis. Osteoporosis and overlying bowel gas limits evaluation of the sacrum. Atherosclerotic calcifications of the aorta and its branches as well as the proximal thighs. IMPRESSION: 1. Acute, mildly comminuted intertrochanteric fracture of the proximal left femur. Dictated by: Dictated on workstation # [id number]
--- NOTE | 2017-07-25 07:20 | Diagnostic Imaging Report ---
INDICATION: Multiple recent falls and confusion. COMPARISON STUDY: Left hip from today. FINDINGS: Two views of the left femur demonstrates an intertrochanteric fracture of the left hip with fracture line just going into the shaft. Arterial sclerosis is present. IMPRESSION: There is intertrochanteric fracture of the left hip with fracture line going into the proximal femoral shaft. Dictated by: Dictated on workstation # [id number]
--- NOTE | 2017-07-25 07:21 | Diagnostic Imaging Report ---
PROCEDURE: CT head without contrast. TECHNIQUE: Multiple contiguous axial images were obtained through the brain without the use of intravenous contrast. INDICATION: Multiple recent falls and confusion. Comparison study: CT scan of the head from 04/04/17. FINDINGS: Examination demonstrates no mass effect, midline shift, hemorrhage or extra-axial fluid collections. Diffuse atrophy and periventricular white matter disease is present. Old lacunar infarcts are seen in the left side of thalamus and basal ganglia. No new areas of ischemia are identified at this time. Bone windows demonstrate no evidence of a fracture. No fluid is seen in the paranasal sinuses or mastoid air cells. IMPRESSION: Stable atrophy, microvascular disease and old lacunar infarcts. No acute findings are seen. Dictated by: Dictated on workstation # [id number]
--- NOTE | 2017-07-25 07:23 | Diagnostic Imaging Report ---
INDICATION: Left hip pain after fall. COMPARISON: AP pelvis performed concurrently. FINDINGS AND IMPRESSION: 1. There is an acute, mildly comminuted intertrochanteric fracture of the proximal left femur. No associated coxa vera or bowel gas angulation. 2. Visualized left hemipelvis is intact. Dictated by: Dictated on workstation # [id number]
--- NOTE | 2017-07-25 07:40 | Consultation ---
History of Present Illness History of Present Illness Patient Consulted On(mikael/time) 07/25/17 07:35 Date Seen by Provider: Jul 25, 2017 Time Seen by Provider: 07:30 Reason for Visit: Left intertrochanteric fracture History of Present Illness 72-year-old male admitted to [facility] July 23, 2017 for dementia as well as taking a fall and having left-sided greater trochanter injury. At that time the CT revealed no intertrochanteric fracture. [facility] apparently [facility] after apparently [facility]ting the bed. The nurse was going for supplies and when she was gone there was a audible fall with Tova lying on the ground. He was brought to [facility] emergency department for evaluation and at that time he was found to have a completed intertrochanteric fracture on the left side. His reports today other than having some discomfort he basically appears to be himself. There is no shortness of breath no chest pain reported. 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 Allergies and Home Medications Allergies Coded Allergies: No Known Drug Allergies (Unverified , 10/05/10) Home Medications Amlodipine Besylate 10 Mg Tablet, 10 MG PO DAILY @ 1200, (Reported) Gabapentin 600 Mg Tablet, 300 MG PO BID, (Reported) TAKES 1/2 (600MG) TABLET Hydrochlorothiazide 12.5 Mg Cap, 12.5 MG PO DAILY, (Reported) Levothyroxine Sodium 125 Mcg Tablet, 125 MCG PO DAILY, (Reported) Magnesium Oxide 400 Mg Tablet, 400 MG PO DAILY, (Reported) Metoprolol Tartrate 100 Mg Tablet, 100 MG PO BID, (Reported) Multivitamin 1 Each Tablet, 1 TAB PO DAILY, (Reported) Omeprazole 20 Mg Tablet.dr, 20 MG PO DAILY, (Reported) Oxybutynin Chloride 10 Mg Tab.er.24, 10 MG PO DAILY, (Reported) Potassium Chloride 10 Meq Tab.prt.sr, 10 MEQ PO BID, (Reported) Tamsulosin HCl 0.4 Mg Cap, 0.4 MG PO DAILY, #30 Prescribed by: NI ALVAREZ on 02/16/17 0630 Tramadol HCl 50 Mg Tablet, 50 MG PO TID, (Reported) Past [address] Hx Patient Social History Alcohol Use: Regular Use Number of Drinks Today: AA Alcohol Beverage of Choice: Beer Recreational Drug Use: No Smoking Status: Former Smoker Type Used: Cigarettes Former Smoker, Quit: Jun 24, 2016 2nd Hand Smoke Exposure: No Recent Foreign Travel: No Contact w/Someone Who Travel: No Recent Infectious Disease Expo: No Recent Hopitalizations: No Physical Abuse: No Sexual Abuse: No Immunizations Up To Date Tetanus Booster (TDap): Unknown Seasonal Allergies Seasonal Allergies: Yes Surgeries History of Surgeries: Yes ( R ROTATOR CUFF, R FOOT, direct larynoscopy, arm fx , port) Surgeries: Orthopedic, Vasectomy Respiratory History of Respiratory Disorde: No Cardiovascular History of Cardiac Disorders: Yes Cardiac Disorders: Hypertension Neurological History of Neurological Disord: Yes Neurological Disorders: Neuropathy Reproductive System Hx Reproductive Disorders: No Sexually Transmitted Disease: No Genitourinary History of Genitourinary Disor: No Gastrointestinal History of Gastrointestinal Di: Yes Gastrointestinal Disorders: Polyps Musculoskeletal History of Musculoskeletal Dis: Yes (RIGHT SHOULDER SX, LEFT SHOULDER FX ) Musculoskeletal Disorders: Fractures Endocrine History of Endocrine Disorders: Yes ("BORDERLINE" DIABETES--NO MEDICATIONS AND DOES NOT FOLLOW DIET) Endocrine Disorders: Hypothyroidsim HEENT History of HEENT Disorders: Yes HEENT Disorders: Cataract Loss of Vision: Denies Hearing Impairment: Denies 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) Cancer: Lung Did You Recieve Any Treatments: Yes Type of Tx Receive: Chemotherapy, Radiation Psychosocial History of Psychiatric Problem: Yes Behavioral Health Disorders: Anxiety Suicide Risk Score: 0 Integumentary History of Skin or Integumenta: No Blood Transfusions History of Blood Disorders: No Adverse Reaction to a Blood Tr: No Family Medical History Significant Family History: No Pertinent Family Hx Family Medial History: Aneurysm 19 FATHER Colon cancer 19 MOTHER Review of Systems-General Constitutional: see HPI Physical Exam-General Problems Physical Exam Vital Signs Vital Sign - Last 12Hours 07/25/17 00:14 Temp 98.4 Pulse 80 Resp 18 B/P (MAP) 177/91 Pulse Ox 98 Capillary Refill : Less Than 3 SecondsLess Than 3 Seconds General Appearance: mild distress, moderate distress (Especially with movement of the left hip) Eyes: Bilateral Eye Normal Inspection HEENT: pharyngeal erythema, other (Mucous membranes are dry) Neck: non-tender Respiratory: lungs clear (With faint rales appreciated) Cardiovascular: regular rate, rhythm Gastrointestinal: soft Rectal: deferred Extremities: other (No obvious foreshortening of the lower extremities in comparison. He is very tender to palpation of the left hip.) Neurologic/Psychiatric: alert, other (He is somewhat disoriented but he does have dementia) Skin: normal color Comments NAME: TOVA CORREA [facility] REC#: [id number] PT STATUS: ADM IN : 1945 PHYSICIAN: JOSEPH TATE DO ADMIT DATE: 07/25/17 Draft Date of Exam:07/25/17 HIP, LEFT, 2 VIEWS INDICATION: Left hip pain after fall. COMPARISON: AP pelvis performed concurrently. FINDINGS AND IMPRESSION: 1. There is an acute, mildly comminuted intertrochanteric fracture of the proximal left femur. No associated coxa vera or bowel gas angulation. 2. Visualized left hemipelvis is intact. Dictated on workstation # [id number] Dict: 07/25/1713 Trans: 07/25/17 0723 MELISSA [id number] Interpreted by: SOFIYA ARREOLA MD Electronically signed by: Assessment/Plan Assessment/Plan Admission Diagnosis/Plan 1. Intertrochanteric fracture on the left side -Patient to be admitted under the care of orthopedics for repair of the fracture. -At this time is medically stable for procedure. His hemoglobin is stable. -EKG is pending and he will have additional potassium added through IV. -thank you for consultation and will follow along with you after procedure completed 2. Hypertension -We will initiate him back on amlodipine as well as hydrochlorothiazide after procedure. 3. Dementia 4. 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 Easton 5. Benign prostatic hypertrophy -We'll place on Flomax after procedure. Clinical Quality Measures DVT/VTE Risk/Contraindication: Risk Factor Score Per Nursin RFS Level Per Nursing on Admit: 4+=Very High JOSE ALEJANDRO MANZO MD Jul 25, 2017 07:40
--- NOTE | 2017-07-25 07:43 | Diagnostic Imaging Report ---
Indication: Multiple recent falls and confusion Findings: A frontal view of the chest is compared to an exam from 08/15/16 and a recent PET CT. Previous rib fractures are again identified. No acute fractures are seen. Multiple pulmonary nodules are present which were present on a previous PET scan. No infiltrates, pneumothorax or pleural effusion is seen. Heart size is upper normal. Impression: 1. There are old rib fractures with no acute fractures. 2. Multiple pulmonary nodules are again identified. Dictated by: Dictated on workstation # [id number]
[2017-07-25] MEDS ORDERED: fentaNYL INJECTION 100 MCG/2 ML AMP ONE (07:55)
[2017-07-25] MEDS ORDERED: proPOfol 200 MG/20 ML (DIPRIVAN) VIAL IV ONE (07:55)
[2017-07-25] MEDS ORDERED: LIDOCAINE PF 2% 5 ML (XYLOCAINE) VIAL ONE (07:55)
[2017-07-25] MEDS ORDERED: LACTATED RINGERS 1,000 ML IV ONE (07:55)
[2017-07-25] MEDS ORDERED: SEVOFLURANE (ULTANE) 15 ML INHAL SOLN ONE (08:01)
--- NOTE | 2017-07-25 08:08 | History & Physical-Surgical ---
HPO-Surgical History of Present Illness Chief Complaint: senior living staff reports patient fell out of bed. patient denies pain at this time, denies loc or other pain. Has been having left hip pain for several days and has fallen more than once requring imaging. Has increased difficutly with ambulation and left hip pain in the days leading up to the fall. He also has a significan hx of lung cancer Diagnosis/Surgical Indication: Hx of Squamous Cell CA of Larynx/Laryngeal Lesion Procedure: DIRECT LARYNGOSCOPY WITH POSSIBLE BIOPSY OF SINUS AREA AND RIGHT TONSIL AREA WITH POSSIBLE FROZEN SECTIONS Date of Surgery: Jul 25, 2017 Weight (Pounds): 134 Weight (Ounces): 0.0 Height (Feet): 6 Height (Inches): 0.00 Allergies and Home Medications Allergies Coded Allergies: No Known Drug Allergies (Unverified , 10/05/10) Home Medications Amlodipine Besylate 10 Mg Tablet, 10 MG PO DAILY @ 1200, (Reported) Gabapentin 600 Mg Tablet, 300 MG PO BID, (Reported) TAKES 1/2 (600MG) TABLET Hydrochlorothiazide 12.5 Mg Cap, 12.5 MG PO DAILY, (Reported) Levothyroxine Sodium 125 Mcg Tablet, 125 MCG PO DAILY, (Reported) Magnesium Oxide 400 Mg Tablet, 400 MG PO DAILY, (Reported) Metoprolol Tartrate 100 Mg Tablet, 100 MG PO BID, (Reported) Multivitamin 1 Each Tablet, 1 TAB PO DAILY, (Reported) Omeprazole 20 Mg Tablet.dr, 20 MG PO DAILY, (Reported) Oxybutynin Chloride 10 Mg Tab.er.24, 10 MG PO DAILY, (Reported) Potassium Chloride 10 Meq Tab.prt.sr, 10 MEQ PO BID, (Reported) Tamsulosin HCl 0.4 Mg Cap, 0.4 MG PO DAILY, #30 Prescribed by: NI ALVAREZ on 02/16/17 0630 Tramadol HCl 50 Mg Tablet, 50 MG PO TID, (Reported) Past Bzifpsx-Cvhefg-Uwnyam Hx Patient Social History Alcohol Use: Past History (HISTORY OF ABUSE--1/2 PINT OF LIQUOR PLUS BEER DAILY --QUIT 2015) Alcohol Beverage of Choice: Beer Recreational Drug Use: No Smoking Status: Former Smoker (1 PPD, QUIT 2015) Former Smoker, Quit: Jun 24, 2016 Type Used: Cigarettes 2nd Hand Smoke Exposure: No Physical Abuse Screen: No Sexual Abuse: No Recent Foreign Travel: No Contact w/other who traveled: No Recent Hopitalizations: No Recent Infectious Disease Expo: No Immunizations Up To Date Tetanus Booster (TDap): Unknown Seasonal Allergies Seasonal Allergies: Yes Surgeries Yes ( R ROTATOR CUFF; LEFT HUMERUS FX/ORIF 2014; 2 RIGHT FOOT SURGERIES; REMOVAL OF JENKINS'S NEUROMA RIGHT FOOT; G-TUBE PLACEMENT; PORT; LARYNGOSCOPIES + LARYNGEAL BIOPSIES; COLONOSCOPY) Orthopedic, Vasectomy Respiratory Yes (THROAT CANCER WITH BILATERAL LUNG METS) Cardiovascular Yes Hypertension Neurological Yes Dementia, Neuropathy Reproductive System Hx Reproductive Disorders: No Sexually Transmitted Disease: No Genitourinary No Gastrointestinal Yes Polyps Musculoskeletal Yes (RIGHT SHOULDER SX, LEFT SHOULDER FX/ORIF 06/14/15; CRUSH INJURY RIGHT FOOT WITH 2 SURGERIES THEN RIGHT FOOT JENKINS'S NEUROMA W/REMOVAL; FREQUENT FALLS. ) Fractures Endocrine History of Endocrine Disorders: Yes ("BORDERLINE" DIABETES--NO MEDICATIONS AND DOES NOT FOLLOW DIET) Endocrine Disorders: Hypothyroidsim, Diabetes, Non-Insulin dep HEENT History of HEENT Disorders: Yes (THROAT CANCER) HEENT Disorders: Cataract Loss of Vision: Denies Hearing Impairment: Denies Cancer Yes (LARYNX SQUAMOUS CELL CA WITH METS TO BOTH LUNGS. ) Lung Did You Recieve Any Treatments: Yes Type of Treatment: Chemotherapy, Radiation Psychosocial History of Psychiatric Problem: Yes Behavioral Health Disorders: Anxiety Integumentary History of Skin or Integumenta: No Blood Transfusions History of Blood Disorders: No Adverse Reaction to a Blood Tr: No Family Medical History Family Hx: Aneurysm 19 FATHER Colon cancer 19 MOTHER Exam Vital Signs Vital Signs 07/25/17 06:33 Temp 99.4 Pulse 100 Resp 16 B/P (MAP) 189/88 Pulse Ox 97 O2 Delivery Room Air Capillary Refill : Less Than 3 SecondsLess Than 3 Seconds Labs Laboratory Tests Test 07/25/17 01:25 07/25/17 05:50 Range/Units White Blood Count 9.1 8.5 4.3-11.0 10^3/uL Red Blood Count 4.45 4.31 L 4.35-5.85 10^6/uL Hemoglobin 13.3 12.9 L 13.3-17.7 G/DL Hematocrit 39 L 38 L 40-54 % Mean Corpuscular Volume 87 87 80-99 FL Mean Corpuscular Hemoglobin 30 30 25-34 PG Mean Corpuscular Hemoglobin Concent 34 34 32-36 G/DL Red Cell Distribution Width 12.3 12.3 10.0-14.5 % Platelet Count 280 254 130-400 10^3/uL Mean Platelet Volume 9.2 8.9 7.4-10.4 FL Neutrophils (%) (Auto) 79 H 85 H 42-75 % Lymphocytes (%) (Auto) 8 L 5 L 12-44 % Monocytes (%) (Auto) 9 8 0-12 % Eosinophils (%) (Auto) 4 1 0-10 % Basophils (%) (Auto) 0 0 0-10 % Neutrophils # (Auto) 7.3 7.2 1.8-7.8 X 10^3 Lymphocytes # (Auto) 0.6 L 0.5 L 1.0-4.0 X 10^3 Monocytes # (Auto) 0.8 0.7 0.0-1.0 X 10^3 Eosinophils # (Auto) 0.4 H 0.1 0.0-0.3 10^3/uL Basophils # (Auto) 0.0 0.0 0.0-0.1 10^3/uL Prothrombin Time 14.4 12.2-14.7 SEC INR Comment 1.1 0.8-1.4 Activated Partial Thromboplast Time 37 H 24-35 SEC Sodium Level 135 132 L 135-145 MMOL/L Potassium Level 3.6 3.3 L 3.6-5.0 MMOL/L Chloride Level 98 97 L 98-107 MMOL/L Carbon Dioxide Level 24 22 21-32 MMOL/L Anion Gap 13 13 5-14 MMOL/L Blood Urea Nitrogen 17 12 7-18 MG/DL Creatinine 0.81 0.74 0.60-1.30 MG/DL Estimat Glomerular Filtration Rate > 60 > 60 BUN/Creatinine Ratio 21 16 Glucose Level 143 H 126 H 70-105 MG/DL Calcium Level 9.4 8.6 8.5-10.1 MG/DL Total Bilirubin 0.7 0.6 0.1-1.0 MG/DL Aspartate Amino Transf (AST/SGOT) 52 H 42 H 5-34 U/L Alanine Aminotransferase (ALT/SGPT) 58 H 51 0-55 U/L Alkaline Phosphatase 81 76 40-136 U/L Total Protein 7.3 6.9 6.4-8.2 GM/DL Albumin 3.3 3.1 L 3.2-4.5 GM/DL General Appearance: Alert, Oriented X3, Cooperative, No Acute Distress HEENT: Atraumatic Cardiovascular: Regular Rate Abdominal: Soft, No Hepatosplenomegaly Extremities: No Cyanosis, No Edema, Normal Pulses Skin: No Rashes, No Breakdown, No Significant Lesion Neuro: Normal Speech Assessment/Plan Assessment and Plan Assessment: left hip inter troch fracture Plan: TFN left hip IM has been consulted pain control Problems: NI CALVERT Jul 25, 2017 08:07
[2017-07-25] MEDS ORDERED: BUPIVACAINE 0.5% 30 ML (SENSORCAINE) VIAL ONE (08:11)
[2017-07-25] MEDS: LACTATED RINGERS 1,000 ML IV PRN ×2 (08:20→09:58)
[2017-07-25] MEDS ORDERED: ceFAZolin 1,000 MG (ANCEF) VIAL ONE (08:22)
[2017-07-25] MEDS ORDERED: NS (IVPB) 50 ML ONE (08:23)
[2017-07-25] MEDS ORDERED: ceFAZolin INJECTION 1,000 MG in NS (IVPB) 50 ML IV NR (08:30)
--- NOTE | 2017-07-25 08:33 | History & Physicial ---
History of Present Illness History of Present Illness Reason for visit/HPI 72 yr old WM with severe dementia sustained a left hip fracture after a fall. He apparently had a probable nondisplaced IT hip fracture but fell yesterday and displaced the fracture. he was unable to bear weight and imaging indicated fracture. He is cleared for surgery and questions were answered this AM. Date of Admission Jul 25, 2017 at 01:10 Date Seen by Provider: Jul 25, 2017 Time Seen by Provider: 08:31 I consulted on this patient on 07/25/17 08:29 Attending Physician Demond Machuca MD Admitting Physician Demond Machuca MD Consult Allergies and Home Medications Allergies Coded Allergies: No Known Drug Allergies (Unverified , 10/05/10) Home Medications Amlodipine Besylate 10 Mg Tablet, 10 MG PO DAILY @ 1200, (Reported) Gabapentin 600 Mg Tablet, 300 MG PO BID, (Reported) TAKES 1/2 (600MG) TABLET Hydrochlorothiazide 12.5 Mg Cap, 12.5 MG PO DAILY, (Reported) Levothyroxine Sodium 125 Mcg Tablet, 125 MCG PO DAILY, (Reported) Magnesium Oxide 400 Mg Tablet, 400 MG PO DAILY, (Reported) Metoprolol Tartrate 100 Mg Tablet, 100 MG PO BID, (Reported) Multivitamin 1 Each Tablet, 1 TAB PO DAILY, (Reported) Omeprazole 20 Mg Tablet.dr, 20 MG PO DAILY, (Reported) Oxybutynin Chloride 10 Mg Tab.er.24, 10 MG PO DAILY, (Reported) Potassium Chloride 10 Meq Tab.prt.sr, 10 MEQ PO BID, (Reported) Tamsulosin HCl 0.4 Mg Cap, 0.4 MG PO DAILY, #30 Prescribed by: NI ALVAREZ on 02/16/17 0630 Tramadol HCl 50 Mg Tablet, 50 MG PO TID, (Reported) Past Nytwysn-Pkbxiw-Kxngxk Hx Patient Social History Alcohol Use: Past History (HISTORY OF ABUSE--1/2 PINT OF LIQUOR PLUS BEER DAILY --QUIT 2015) Alcohol Beverage of Choice: Beer Recreational Drug Use: No Smoking Status: Former Smoker (1 PPD, QUIT 2015) Former Smoker, Quit: Jun 24, 2016 Type Used: Cigarettes 2nd Hand Smoke Exposure: No Physical Abuse Screen: No Sexual Abuse: No Recent Foreign Travel: No Contact w/other who traveled: No Recent Hopitalizations: No Recent Infectious Disease Expo: No Immunizations Up To Date Tetanus Booster (TDap): Unknown Seasonal Allergies Seasonal Allergies: Yes Surgeries Yes ( R ROTATOR CUFF; LEFT HUMERUS FX/ORIF 2014; 2 RIGHT FOOT SURGERIES; REMOVAL OF JENKINS'S NEUROMA RIGHT FOOT; G-TUBE PLACEMENT; PORT; LARYNGOSCOPIES + LARYNGEAL BIOPSIES; COLONOSCOPY) Orthopedic, Vasectomy Respiratory Yes (THROAT CANCER WITH BILATERAL LUNG METS) Cardiovascular Yes Hypertension Neurological Yes Dementia, Neuropathy Reproductive System Hx Reproductive Disorders: No Sexually Transmitted Disease: No Genitourinary No Gastrointestinal Yes Polyps Musculoskeletal Yes (RIGHT SHOULDER SX, LEFT SHOULDER FX/ORIF 06/14/15; CRUSH INJURY RIGHT FOOT WITH 2 SURGERIES THEN RIGHT FOOT JENKINS'S NEUROMA W/REMOVAL; FREQUENT FALLS. ) Fractures Endocrine History of Endocrine Disorders: Yes ("BORDERLINE" DIABETES--NO MEDICATIONS AND DOES NOT FOLLOW DIET) Endocrine Disorders: Hypothyroidsim, Diabetes, Non-Insulin dep HEENT History of HEENT Disorders: Yes (THROAT CANCER) HEENT Disorders: Cataract Loss of Vision: Denies Hearing Impairment: Denies Cancer Yes (LARYNX SQUAMOUS CELL CA WITH METS TO BOTH LUNGS. ) Lung Did You Recieve Any Treatments: Yes Type of Treatment: Chemotherapy, Radiation Psychosocial History of Psychiatric Problem: Yes Behavioral Health Disorders: Anxiety Integumentary History of Skin or Integumenta: No Blood Transfusions History of Blood Disorders: No Adverse Reaction to a Blood Tr: No Family Medical History Family Hx: Aneurysm 19 FATHER Colon cancer 19 MOTHER Constitutional: malaise, weight loss Physical Exam Vital Signs Vital Sign - Last 12Hours 07/25/17 00:14 Temp 98.4 Pulse 80 Resp 18 B/P (MAP) 177/91 Pulse Ox 98 Capillary Refill : Less Than 3 SecondsLess Than 3 Seconds General Appearance: No Apparent Distress Extremity: Other (LLE short and externally rotated, painful with log rol, 2/4 DP, PT, NVSI) Assessment/Plan Assessment and Plan ASSESSMENT: displaced left IT hip fracture PLAN: To OR today for intramedullary nailing WBAT postop postop DVT prophylaxis Problems: Admission Diagnosis hip fracture Clinical Quality Measures DVT/VTE Risk/Contraindication: Risk Factor Score Per Nursin RFS Level Per Nursing on Admit: 4+=Very High TRUDY LAW DO Jul 25, 2017 08:33
[2017-07-25] MEDS ORDERED: morphine INJ 4 MG/ML 1 ML (VIAL/SYRINGE) IV PRN (08:45)
[2017-07-25] MEDS ORDERED: ONDANSETRON 4 MG/2 ML (SDV) Z0FRAN IV PRN (08:45)
[2017-07-25] MEDS ORDERED: BISACODYL 5 MG (DULCOLAX) TABLET PO PRN (08:45)
[2017-07-25] MEDS ORDERED: MILK OF MAGNESIA 400 MG/5 ML 30 ML UDC PO PRN (08:45)
[2017-07-25] MEDS ORDERED: ONDANSETRON 4 MG/2 ML (SDV) Z0FRAN ONE (09:29)
[2017-07-25] MEDS ORDERED: ESMOLOL 100 MG/10 ML (BREVIBLOC) VIAL ONE (09:29)
[2017-07-25] MEDS ORDERED: morphine INJ 10 MG/ML 1ML (SYR OR VIAL) ONE (10:16)
[2017-07-25] MEDS ORDERED: ONDANSETRON 4 MG/2 ML (SDV) Z0FRAN IVP PRN (10:30)
[2017-07-25] MEDS ORDERED: morphine INJ 10 MG/ML 1ML (SYR OR VIAL) IVP PRN (10:30)
[2017-07-25] MEDS ORDERED: HYDROmorphone (DILAUDID) 2 MG/ML VIAL IVP PRN (10:30)
[2017-07-25] MEDS: POTASSIUM CL 10MEQ/50ML IVPB 50 ML IV SCH ×3 (12:37→16:46)
[2017-07-25] MEDS: NS IV 1000 ML 1,000 ML IV SCH ×3 (12:44→20:51)
[2017-07-25] MEDS ORDERED: TAMS0.4C2 PO (12:46)
[2017-07-25] MEDS ORDERED: DONE10TA48 SL (12:46)
[2017-07-25] MEDS ORDERED: CARB15DR3 OU (12:46)
[2017-07-25] MEDS ORDERED: LORA1TAB PO (12:46)
[2017-07-25] MEDS ORDERED: LEVO100T7 PO (12:47)
--- NOTE | 2017-07-25 15:02 | Physical Therapy Progress Note ---
Therapy Progress Note PT has attempted x 2 to evaluate patient. Patient is too sedated and lethargic to safely perform gross motor activities at this time. PT to begin in a.m. Spouse is present and agrees. Patient has severe Alzheimer's as well with difficulty following direction. 2 visits RICHIE CRAIG PT Jul 25, 2017 15:02
--- NOTE | 2017-07-25 15:33 | Occupational Therapy Eval ---
OT Evaluation-General/PLF Medical Diagnosis Admission Date Jul 25, 2017 at 01:10 Medical Diagnosis: L hip intertrochanteric fx, dementia, metastatic CA both lungs Onset Date: Jul 25, 2017 Therapy Diagnosis Therapy Diagnosis: decr self care, decr funct mobility, weakness Height/Weight Height (Feet): 6 Height (Inches): 0.00 Weight (Pounds): 134 Weight (Ounces): 0.0 Precautions Precautions/Isolations: Fall Prevention, Standard Precautions Weight Bear Status Weight Bearing Restriction: Weight Bearing/Tolerated Location Restriction: L LE Referral Physician: Juliana Medical History Pertinent Medical History: Alcoholism, DM ("borderline ), Dementia, HTN, Hypothroidism, Neuropathy, Smoking Additional Medical History Hx R rotator cuff repair, L humeral fx ([facility] stay in 2014), 2 foot surgeries. Cataract surgery x 2, anxiety, BPH. Current History Multiple falls 07-18-17, 07-19-17, first with no fx, then with fx. Fall again with fx. IM nail on 07-25-17 Reviewed History: Yes Social History Current Living Status: Spouse ADL-Prior Level of Function ADL PLOF Comments Pt's reported that he has been able to manage his basic ADLs but recently has needed initiation or sequencing cues. He does not use a device for walking inside the home. He has had some difficulty shaving because of blurry eyesight, partially from medications. He is disabled from [employer] grocery stores and does not drive. DME/Equipment: Grab Bars, Shower OT Current Status Subjective Pt seen in room, up in bed, agreeable to OT but answered most questions. Pt said that he wasn't in any pain but grimaced and reached out when gently turned on his R side, with nursing. Appearance Flat affect, eyes open but with little blinking Mental Status/Objective Attachments: York Catheter, IV, Oxygen Current Hand Dominance: Right Upper Extremity ROM R UE grossly WFL. Pt refused to move his L arm, although his said that he doesn't have movement impairments Upper Extremity Strength R UE grossly 4/5. Pt refused to move L UE for testing ADL-Treatment ADL-Current Pt had surgery today and is not participating enough for ADLs Functional [place] Measure 0=Not Assessed/NA 4=Minimal Assistance 1=Total Assistance 5=Supervision or Setup 2=Maximal Assistance 6=Modified [place] 3=Moderate Assistance 7=Complete IndependenceIRFPAI Quality Coding Scale 6 Independent with activity with or without an assistive device 5 Patient requires set up or clean up by helper. Patient completes activity by themselves 4 Supervision or touching assist (CGA). [place] provide cues , steadying assist 3 The helper provides less than half the effort to complete the activity 2 The helper provides more than half the effort to complete the activity 1 Dependent. The helper does all the effort to complete an activity 7 Patient refused to complete or attempt activity 9 The patient did not perform the activity before the current illness or injury 88 Not attempted due to Medical conditions or safety concerns Other Treatments Orientation to rehab process. Patient's would like him to come to [facility] for therapy and then discharge to [facility]. Education OT Patient Education: Purpose of tx/functional activities, Rehab process Teaching Recipient: Patient, Family Teaching Methods: Discussion Response to Teaching: Verbalize Understanding OT Long-Term Goals Long-Term Goals Time Frame: Aug 01, 2017 Eating (FIM): 5 Grooming(FIM): 5 Upper Body Dressing(FIM): 5 Lower Body Dressing(FIM): 3 Toileting(FIM): 3 Toilet/Commode Transfer(FIM): 4 Additional Goals: 2-Verbalize Understanding, 3-ImproveStrength/Liza 1=Demonstrate adherence to instructed precautions during ADL tasks. 2=Patient will verbalize/demonstrate understanding of assistive devices/ modifications for ADL. 3=Patient will improve strength/tolerance for activity to enable patient to perform ADL's. OT Education/Plan Problem List/Assessment Assessment: Decreased UE Strength, Dependent Transfers, Impaired Bed Mobility, Impaired Funct Balance, Impaired Self-Care Skills Pt would benefit from skilled OT to increase his independence in basic self care and to decrease caregiver burden Discharge Recommendations Plan/Recommendations: Continue POC Therapy D/C Recommendations: Fpc (TCU/NH) Barriers to Progress Dementia affecting performance in ADLs Target Placement Since target placement is ultimately skilled care, it is recommended that pt receive post acute OT on skilled unit Treatment Plan/Plan of Care Treatment,Training & Education: Yes Patient would benefit from OT for education, treatment and training to promote independence in ADL's, mobility, safety and/or upper extremity function for ADL' s. Plan of Care: ADL Retraining, Functional Mobility, UE Funct Exercise/Act Treatment Duration: Aug 01, 2017 Frequency: 5 times per week Estimated Hrs Per Day: .5 hour per day Agreement: Yes Rehab Potential: Poor Time/GCodes Start Time: 14:10 Stop Time: 14:30 Total Time Billed (hr/min): 20 Billed Treatment Time visit, 20 minutes evaluation moderate intensity CAROL SRIVASTAVA OT Jul 25, 2017 15:33
[2017-07-25] MEDS: ceFAZolin INJECTION 1,000 MG in NS (IVPB) 50 ML IV SCH ×2 (15:54→23:05)
[2017-07-25] MEDS: oxyCODONE/APAP 5/325MG (PERCOCET 5) TABLET PO PRN ×2 (15:57→21:59)
[2017-07-25] MEDS: SENNOSIDES 8.6 MG (SENOKOT) TAB PO SCH ×2 (16:46→20:51)
--- NOTE | 2017-07-25 19:23 | Diagnostic Imaging Report ---
EXAM: Intraoperative fluoroscopy. INDICATION: Left femoral fracture. Transfemoral nail placement. Open reduction internal fixation. FINDINGS: Four submitted intraoperative fluoroscopic images demonstrate placement of an antegrade intramedullary nail through the left femur with a spiral blade plate through the femoral neck. There is good reduction of the patient's prior comminuted intertrochanteric fracture. IMPRESSION: 1. Left femoral intercondylar intertrochanteric fracture repair with placement of an antegrade intramedullary nail and spiral blade plate across the femoral head and neck. Dictated by: Dictated on workstation # [id number]
[2017-07-25] MEDS: ENOXAPARIN 30 MG/0.3 ML (LOVENOX) SYR SC SCH (20:51)
[2017-07-26] VITALS (8 sets, daily range): BP systolic 113–191; BP diastolic 60–80
[2017-07-26] MEDS: fentaNYL INJECTION 100 MCG/2 ML AMP IV PRN ×2 (01:42→04:20)
[2017-07-26] MEDS: oxyCODONE/APAP 5/325MG (PERCOCET 5) TABLET PO PRN ×4 (01:47→20:14)
--- NOTE | 2017-07-26 02:31 | OPERATIVE REPORT ---
DATE OF SERVICE: 07/25/2017 SURGEON: Trudy Ramos DO MANIFEST CLERK: ANA PAULA Contreras This is a medically necessary procedure. Assistance is necessary for retraction of vital neurovascular structures. Without an assistance, procedure would not be possible. PREOPERATIVE DIAGNOSES: 1. Displaced left intertrochanteric hip fracture. 2. Metastatic cancer. POSTOPERATIVE DIAGNOSES: 1. Displaced left intertrochanteric hip fracture. 2. Metastatic cancer. PROCEDURE PERFORMED: Left hip intramedullary nailing. COMPLICATIONS: None. SPECIMENS: None. ESTIMATED BLOOD LOSS: Minimal. ANESTHESIA: General endotracheal tube anesthesia with local anesthetic. HISTORY OF PRESENT ILLNESS: The patient is a very pleasant 72-year-old gentleman with a history of metastatic cancer. He did have severe pain and difficulty weight bearing prior to a fall yesterday in which he was unable to bear weight. Presented to [facility] where x-rays were taken demonstrating a displaced intertrochanteric hip fracture. The patient and his family understood the risks and benefits and wished to proceed with operative intervention. OPERATION: The patient was identified by name on wrist band in the preoperative holding area, the operating site was signed, consent was signed, SCDs were placed, antibiotics were started. He was taken to the operating room theater, placed under general endotracheal tube anesthesia, and transferred to the operating room table in the supine position. The unaffected right lower extremity was abducted and externally rotated, secured. The affected left lower extremity was placed in traction and internal rotation. He was prepped and draped in usual sterile fashion. Formal timeout was conducted. An incision was then made just over the left greater trochanter. A guidewire was advanced through the bone, of the intramedullary canal. I then reamed the cortex and passed a ball-tip reamer down the left femur to just above the knee. I measured the length of my nail. At this point, I reamed for the nail. I then placed the nail into the left femur. I then placed a guidewire through the lateral cortex and into the neck and head of the femur in a center-center position. I then reamed the lateral cortex measured the length of the helical blade and then carefully seated the helical blade through the nail and into the head of the femur. I then compressed across the fracture line. I locked the nail to rotation. I removed the aiming jig and final AP and lateral x-ray demonstrated appropriate positioning of hardware. I irrigated the wound. I closed the wound in my usual fashion utilizing 0 Vicryl followed by antonio for the skin. I applied dressings, took the patient to supine position in the PACU where he awoke without incident. He tolerated the procedure well. The plan at this time is to admit the patient to the hospital for IV antibiotics, IV pain control, and postoperative monitoring with the patient out of bed on postoperative day 1. Weight bearing as tolerated. Job ID: [id number] DocumentID: [id number] Dictated Date: 07/25/2017 09:46:49 Manager Industrial Date: 07/26/2017 02:30:17 Dictated By: TRUDY RAMOS DO
[2017-07-26] MEDS: NS IV 1000 ML 1,000 ML IV SCH (05:33)
[2017-07-26 05:43] LABS: RED BLOOD COUNT 3.58 10^6/uL (4.35-5.85); RED CELL DISTRIBUTION WIDTH 12.5 % (10.0-14.5)
[2017-07-26] MEDS: CATHETER FLUSH 10 ML SYR IV SCH ×3 (06:02→20:15)
[2017-07-26] MEDS: ceFAZolin INJECTION 1,000 MG in NS (IVPB) 50 ML IV SCH ×2 (06:02→14:08)
[2017-07-26 06:12] LABS: ALANINE AMINOTRANSFERASE 27 U/L (0-55); ALBUMIN 2.6 GM/DL (3.2-4.5); ANION GAP 8 MMOL/L (5-14); ASPARTATE AMINO TRANSFERASE 25 U/L (5-34); BILIRUBIN,TOTAL 0.7 MG/DL (0.1-1.0); BLOOD UREA NITROGEN 11 MG/DL (7-18); BUN/CREATININE RATIO 14; CALCIUM 8.3 MG/DL (8.5-10.1); CARBON DIOXIDE 25 MMOL/L (21-32); CHLORIDE 101 MMOL/L (98-107); CREATININE SERUM 0.79 MG/DL (0.60-1.30); GFR ESTIMATED > 60; GLUCOSE 131 MG/DL (70-105); POTASSIUM 3.8 MMOL/L (3.6-5.0); SODIUM 134 MMOL/L (135-145); TOTAL PROTEIN 5.4 GM/DL (6.4-8.2)
[2017-07-26] MEDS: ENOXAPARIN 30 MG/0.3 ML (LOVENOX) SYR SC SCH ×2 (07:38→20:15)
[2017-07-26] MEDS: POTASSIUM CL 10MEQ/50ML IVPB 50 ML IV SCH (07:45)
[2017-07-26] MEDS ORDERED: FUROSEMIDE 40 MG/4 ML INJ (LASIX) IVP NR (08:30)
--- NOTE | 2017-07-26 11:07 | Physical Therapy Evaluation ---
PT Evaluation-General Medical Diagnosis Admission Date Jul 25, 2017 at 01:10 Medical Diagnosis: L hip intertrochanteric fx, dementia, metastatic CA both lungs Onset Date: Jul 25, 2017 Therapy Diagnosis Therapy Diagnosis: difficulty walking Height/Weight Height (Feet): 6 Height (Inches): 0.00 Weight (Pounds): 134 Weight (Ounces): 0.0 Precautions Precautions/Isolations: Fall Prevention, Standard Precautions Weight Bear Status Weight Bearing Restriction: Weight Bearing/Tolerated Location Restriction: L LE Referral Physician: Juliana Reason for Referral: Evaluation/Treatment Medical History Pertinent Medical History: Alcoholism, DM, Dementia, HTN, Hypothroidism, Neuropathy, Smoking Reviewed History: Yes Social History Home: Single Level Current Living Status: Spouse Prior/Core FIM Prior Level of Function Functional [place] Measure 0=Not Assessed/NA 4=Minimal Assistance 1=Total Assistance 5=Supervision or Setup 2=Maximal Assistance 6=Modified [place] 3=Moderate Assistance 7=Complete [place] Bed Mobility: 6 Transfers (B,C,W/C) (FIM): 6 Gait: 6 Locomotion: 6 Wheelchair Mobility: 6 PT Evaluation-Current Subjective Patient has considerable confusion today. States that his hip is hurting but unable to rate pain level numerically. Objective Patient Orientation: Person, Confused, Place Attachments: York Catheter, IV ROM/Strength ROM Lower Extremities 10 degrees of (L) Hip abduction and 80 degrees of (L) hip flexion Strenght Lower Extremities 4/5 strength grossly in (R) LE and 2+/5 strength in (L) LE Sensory Hand Dominance: Right Transfers Functional [place] Measure 0=Not Assessed/NA 4=Minimal Assistance 1=Total Assistance 5=Supervision or Setup 2=Maximal Assistance 6=Modified [place] 3=Moderate Assistance 7=Complete [place] Transfers (B, C, W/C) (FIM): 2 Scootin Rollin Supine to/from Sit: 2 Balance Sitting Static: Poor Sitting Dynamic: Poor Assessment/Needs Patient is s/p (L) femur ORIF. He has significant confusion which is affecting his functional abilities. He also has dementia which is affecting his function. He should be able to make progress toward goals with skilled therapy. Rehab Potential: Fair PT Short Term Goals Short Term Goals Time Frame: Aug 02, 2017 Transfers (B,C,W/C) (FIM): 4 Gait (FIM): 4 Distance (FIM): 1=up to 49 ft Gait Distance Comment: 20 feet Gait Level of Assist: 4 Gait Assistive Device: FWW PT Prison Goals Product Communications Manager Goals PT Prison Goals Time Frame: Aug 09, 2017 Transfers (B,C,W/C) (FIM): 5 Gait (FIM): 5 Gait distance (FIM): 6=104-99 ft Distance: 150 feet Gait Level of Assist: 5 Gait Assistive Device: FWW PT Plan Problem List Problem List: Activity Tolerance, Functional Strength, Safety, Balance, Gait, Transfer, Bed Mobility, ROM Treatment/Plan Treatment Plan: Continue Plan of Care Treatment Plan: Bed Mobility, Education, Functional Activity Liza, Functional Strength, Gait, Safety, Therapeutic Exercise, Transfers Treatment Duration: Aug 09, 2017 Frequency: Twice Daily Estimated Hrs Per Day: .5 hour per day Patient and/or Family Agrees t: Yes Discharge Recommendations Therapy D/C Recommendations: Detention (TCU/NH) Time/GCodes Time In: 1040 Time Out: 1110 Total Billed Treatment Time: 30 Total Billed Treatment 1, EV MOD C G Codes Necessary: JHON Nash PT Jul 26, 2017 11:07
--- NOTE | 2017-07-26 11:48 | Progress Note (SOAP) ---
Subjective Subjective/Events-last exam patient done well post op. no fevers. pain under good control. Review of Systems Date Seen by Provider: Jul 26, 2017 Time Seen by Provider: 09:45 Objective Exam Last Set of Vital Signs Vital Signs Date Time Temp Pulse Resp B/P (MAP) Pulse Ox O2 Delivery O2 Flow Rate FiO2 07/26/17 10:48 98.7 96 18 146/67 Room Air 07/26/17 08:00 93 07/25/17 18:00 3.00 Capillary Refill : Less Than 3 SecondsLess Than 3 Seconds I&O Intake and Output 07/27/17 00:00 Intake Total 1250 ml Output Total 200 ml Balance 1050 ml Intake Oral 200 ml IV Total 1050 ml Output Urine Total 200 ml General: Alert, Oriented X3, No Acute Distress Lungs: Clear to Auscultation, Normal Air Movement Heart: Regular Rate, Normal S1, Normal S2, No Murmurs, Gallops, Rubs Abdomen: Normal Bowel Sounds, Soft, No Tenderness Neuro: Normal Speech Results/Procedures Lab Laboratory Tests 07/26/17 05:20: White Blood Count 11.0, Red Blood Count 3.58L, Hemoglobin 10.8L, Hematocrit 32L , Mean Corpuscular Volume 90, Mean Corpuscular Hemoglobin 30, Mean Corpuscular Hemoglobin Concent 34, Red Cell Distribution Width 12.5, Platelet Count 255, Mean Platelet Volume 9.0, Sodium Level 134L, Potassium Level 3.8, Chloride Level 101, Carbon Dioxide Level 25, Anion Gap 8, Blood Urea Nitrogen 11, Creatinine 0.79, Estimat Glomerular Filtration Rate > 60, BUN/Creatinine Ratio 14, Glucose Level 131H, Calcium Level 8.3L, Total Bilirubin 0.7, Aspartate Amino Transf (AST/SGOT) 25, Alanine Aminotransferase (ALT/SGPT) 27, Alkaline Phosphatase 64, Total Protein 5.4L, Albumin 2.6L Assessment/Plan Assessment/Plan Plan 1. Intertrochanteric fracture on the left side -Patient to be admitted under the care of orthopedics for repair of the fracture. -At this time is medically stable for procedure. His hemoglobin is stable. -EKG is pending and he will have additional potassium added through IV. -thank you for consultation and will follow along with you after procedure completed 07/26 - being managed by orthopedics, pain adequately controlled 2. Hypertension -We will initiate him back on amlodipine as well as hydrochlorothiazide after procedure. 07/26 - restarted amlodipine, no issues today 3. Dementia 07/26 - stable, no changes as yet. cautious use of narcotics. 4. 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 Easton 07/26 - no active issues 5. Benign prostatic hypertrophy -We'll place on Flomax after procedure. 07/26 - now on flomax, cath prn urinary retention >400cc 6. DVT proph: bridgerx Diagnosis/Problems: Clinical Quality Measures DVT/VTE Risk/Contraindication: Risk Factor Score Per Nursin RFS Level Per Nursing on Admit: 4+=Very High CHANEL COTTRELL MD Jul 26, 2017 11:48 am
[2017-07-26] MEDS: ARTIFICAL TEARS 0.4 ML UNIT DOSE (REFRESH PLUS) OU SCH ×6 (12:28→22:30)
--- NOTE | 2017-07-26 14:46 | Anesthesia-General Post-Op ---
General Patient Condition Mental Status/LOC: Same as Preop Cardiovascular: Satisfactory Nausea/Vomiting: Absent Respiratory: Satisfactory Pain: Controlled Complications: Absent Post Op Complications Complications None Follow Up Care/Instructions Patient Instructions None needed. Anesthesia/Patient Condition Patient Condition Patient is doing well, no complaints, stable vital signs, no apparent adverse anesthesia problems. No complications reported per nursing. SOFY SMITH CRNA Jul 26, 2017 14:46
[2017-07-26] MEDS: SENNOSIDES 8.6 MG (SENOKOT) TAB PO SCH ×2 (15:34→20:14)
[2017-07-26] MEDS: ALFUZOSIN HCL 10 MG TAB (UROXATRAL) PO SCH (17:44)
[2017-07-26] MEDS: meTOprolol TARTRATE 50 MG (LOPRESSOR) TAB PO SCH (20:14)
[2017-07-26] MEDS: GABAPENTIN 600 MG (NEURONTIN) TAB PO SCH (20:14)
[2017-07-27 00:18] VITALS: BP 126/60
[2017-07-27] MEDS: ARTIFICAL TEARS 0.4 ML UNIT DOSE (REFRESH PLUS) OU SCH ×12 (00:25→22:23)
[2017-07-27 05:26] LABS: MEAN PLATELET VOLUME 9.3 FL (7.4-10.4); RED BLOOD COUNT 3.37 10^6/uL (4.35-5.85); RED CELL DISTRIBUTION WIDTH 12.5 % (10.0-14.5); WHITE BLOOD COUNT 9.3 10^3/uL (4.3-11.0)
[2017-07-27] MEDS: LEVOTHYROXINE 100 MCG (LEVOTHROID) TAB PO SCH (05:52)
[2017-07-27] MEDS: CATHETER FLUSH 10 ML SYR IV SCH ×3 (05:53→22:20)
[2017-07-27 06:00] LABS: ALANINE AMINOTRANSFERASE 16 U/L (0-55); ALBUMIN 2.5 GM/DL (3.2-4.5); ANION GAP 10 MMOL/L (5-14); ASPARTATE AMINO TRANSFERASE 20 U/L (5-34); BILIRUBIN,TOTAL 0.5 MG/DL (0.1-1.0); BLOOD UREA NITROGEN 14 MG/DL (7-18); BUN/CREATININE RATIO 18; CALCIUM 8.6 MG/DL (8.5-10.1); CARBON DIOXIDE 24 MMOL/L (21-32); CHLORIDE 103 MMOL/L (98-107); CREATININE SERUM 0.78 MG/DL (0.60-1.30); GFR ESTIMATED > 60; GLUCOSE 102 MG/DL (70-105); POTASSIUM 3.6 MMOL/L (3.6-5.0); SODIUM 137 MMOL/L (135-145); TOTAL PROTEIN 5.6 GM/DL (6.4-8.2)
[2017-07-27 08:00] VITALS: BP 157/68
[2017-07-27] MEDS: amLODIPine 10 MG (NORVASC) TAB PO SCH (08:20)
[2017-07-27] MEDS: SENNOSIDES 8.6 MG (SENOKOT) TAB PO SCH ×2 (08:20→22:20)
[2017-07-27] MEDS: GABAPENTIN 600 MG (NEURONTIN) TAB PO SCH ×2 (08:20→22:19)
[2017-07-27] MEDS: DONEPEZIL 10 MG (ARICEPT) TAB PO SCH (08:23)
[2017-07-27] MEDS: meTOprolol TARTRATE 50 MG (LOPRESSOR) TAB PO SCH ×2 (08:23→22:19)
[2017-07-27] MEDS: HYDROCHLOROTHIAZIDE 12.5 MG (HCTZ) CAP PO SCH (08:24)
[2017-07-27] MEDS: ENOXAPARIN 30 MG/0.3 ML (LOVENOX) SYR SC SCH ×2 (08:25→22:19)
[2017-07-27] MEDS: oxyCODONE/APAP 5/325MG (PERCOCET 5) TABLET PO PRN ×2 (08:33→16:19)
--- NOTE | 2017-07-27 09:26 | Physical Therapy Daily Note ---
PT Daily Note-Current Subjective Pt in bed, alert and agreeable but significantly confused. Speaking very quickly , unable to keep on topic. Command following grossly 25-50% of the time. Denies pain but grimaces with (L) LE movement. Mental Status Patient Orientation: Person, Confused Transfers Functional [place] Measure 0=Not Assessed/NA 4=Minimal Assistance 1=Total Assistance 5=Supervision or Setup 2=Maximal Assistance 6=Modified [place] 3=Moderate Assistance 7=Complete IndependenceIRFPAI Quality Coding Scale 6 Independent with activity with or without an assistive device 5 Patient requires set up or clean up by helper. Patient completes activity by themselves 4 Supervision or touching assist (CGA). [place] provide cues , steadying assist 3 The helper provides less than half the effort to complete the activity 2 The helper provides more than half the effort to complete the activity 1 Dependent. The helper does all the effort to complete an activity 7 Patient refused to complete or attempt activity 9 The patient did not perform the activity before the current illness or injury 88 Not attempted due to Medical conditions or safety concerns Transfers (B, C, W/C) (FIM): 1 Scootin Rollin Supine to/from Sit: 3 Sit to/from Stand: 3 Supine->sit: mod A x 1. Pt stood with mod A x 1 to stand but additional person to stabilize walker as Pt could not follow cues for safe sequencing. Pt stood at EOB for grossly 2' for bed linen change with CGA<->Mod A x 1 for standing balance. Pt able to obtain (I) static standing only briefly before becoming very retropulsive. At times, quickly extending trunk and throwing himself back. Unable to process VCS and tactile cues to normalize balance. Attempted side steps to HOB with FWW; Pt bearing weight on (L) LE at times but unable to sequence with tactile and VCS or demonstration. Mod-max A for balance during this trial. At times, Pt completely picking (L) leg up and holding it up. Returned to bed with A x 2 for sit->supine due to inability to follow cues. A x 2 for positioning in bed. Weight Bearing Weight Bearing Restriction: Weight Bearing/Tolerated Location Restriction: L LE Gait Training Gait (FIM): 0 Pt unable to sequence attempted side steps. Treatments Transfer training, sitting and static standing balance, attempted gait. Pt returned to bed, positioned on (R) side per nursing request. Family in room, all needs met. Assessment Current Status: Fair Progress Pt with improved sitting balance this date. Able to sit (I) with supervision once established at EOB. Pt able to achieve standing this date, unable to sequence for safe ambulation. Pt does appear to weightbear on (L) during standing. Pt's progress is limited by confusion and inability to follow tactile and VCS or even copy demonstrated actions. PT Short Term Goals Short Term Goals Time Frame: Aug 02, 2017 Transfers (B,C,W/C) (FIM): 4 Gait (FIM): 4 Distance (FIM): 1=up to 49 ft Gait Distance Comment: 20 feet Gait Level of Assist: 4 Gait Assistive Device: FWW PT Skilled Nursing Goals [place]unny Goals PT Skilled Nursing Goals Time Frame: Aug 09, 2017 Transfers (B,C,W/C) (FIM): 5 Gait (FIM): 5 Gait distance (FIM): 4=206-07 ft Distance: 150 feet Gait Level of Assist: 5 Gait Assistive Device: FWW PT Plan Problem List Problem List: Activity Tolerance, Functional Strength, Safety, Balance, Gait, Transfer, Bed Mobility Treatment/Plan Treatment Plan: Continue Plan of Care Treatment Plan: Bed Mobility, Education, Functional Activity Liza, Functional Strength, Gait, Safety, Therapeutic Exercise, Transfers Treatment Duration: Aug 09, 2017 Frequency: Twice Daily Estimated Hrs Per Day: .5 hour per day Patient and/or Family Agrees t: Yes Safety Risks/Education Patient Education: Transfer Techniques Teaching Recipient: Patient, Family Teaching Methods: Demonstration, Discussion Response to Teaching: Unable to Return Demonstration, Unable to Comprehend Discharge Recommendations Therapy D/C Recommendations: Prison (TCU/NH) Barriers to Progress memory/cognition Time/GCodes Time In: 851 Time Out: 918 Total Billed Treatment Time: 27 Total Billed Treatment 1, FA x 27' G Codes Necessary: NELSY Cadena DPMehul Jul 27, 2017 09:26
--- NOTE | 2017-07-27 11:58 | Progress Note (SOAP) ---
Subjective Subjective/Events-last exam pt has a history of drinking 1-2 beers per night, is asking for beer. n oother issues, pain controlled. Review of Systems Date Seen by Provider: Jul 27, 2017 Time Seen by Provider: 09:30 General: No Chills, No Night Sweats Objective Exam Last Set of Vital Signs Vital Signs Date Time Temp Pulse Resp B/P (MAP) Pulse Ox O2 Delivery O2 Flow Rate FiO2 07/27/17 08:05 Room Air 07/27/17 08:00 99.8 102 20 157/68 93 07/25/17 18:00 3.00 Capillary Refill : Less Than 3 SecondsLess Than 3 Seconds I&O Intake and Output 07/28/17 00:00 Intake Total 50 ml Output Total 225 ml Balance -175 ml Intake Oral 50 ml Output Urine Total 225 ml General: Alert, Oriented X3, Cooperative, No Acute Distress Lungs: Clear to Auscultation, Normal Air Movement Heart: Regular Rate, Normal S1, Normal S2, No Murmurs, Gallops, Rubs Abdomen: Normal Bowel Sounds, Soft, No Tenderness, No Hepatosplenomegaly, No Masses Extremities: No Clubbing, No Cyanosis, No Edema Neuro: Normal Speech Psych/Mental Status: Mental Status NL, Mood NL Results/Procedures Lab Laboratory Tests 07/27/17 04:40: White Blood Count 9.3, Red Blood Count 3.37L, Hemoglobin 10.2L, Hematocrit 30L, Mean Corpuscular Volume 90, Mean Corpuscular Hemoglobin 30, Mean Corpuscular Hemoglobin Concent 34, Red Cell Distribution Width 12.5, Platelet Count 233, Mean Platelet Volume 9.3, Sodium Level 137, Potassium Level 3.6, Chloride Level 103, Carbon Dioxide Level 24, Anion Gap 10, Blood Urea Nitrogen 14, Creatinine 0.78, Estimat Glomerular Filtration Rate > 60, BUN/Creatinine Ratio 18, Glucose Level 102, Calcium Level 8.6, Total Bilirubin 0.5, Aspartate Amino Transf (AST/ SGOT) 20, Alanine Aminotransferase (ALT/SGPT) 16, Alkaline Phosphatase 74, Total Protein 5.6L, Albumin 2.5L Assessment/Plan Assessment/Plan Plan 1. Intertrochanteric fracture on the left side -Patient to be admitted under the care of orthopedics for repair of the fracture. -At this time is medically stable for procedure. His hemoglobin is stable. -EKG is pending and he will have additional potassium added through IV. -thank you for consultation and will follow along with you after procedure completed 07/26 - being managed by orthopedics, pain adequately controlled 07/27 - orthopedics is admitting team, no note from them as yet? 2. Hypertension -We will initiate him back on amlodipine as well as hydrochlorothiazide after procedure. 07/26 - restarted amlodipine, no issues today 07/27 - controlled, no changes today 3. Dementia 07/26 - stable, no changes as yet. cautious use of narcotics. 07/27 - stable, no changes. dc iv pain meds. 4. 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 Easton 07/26 - no active issues 07/27 - no changes 5. Benign prostatic hypertrophy -We'll place on Flomax after procedure. 07/26 - now on flomax, cath prn urinary retention >400cc 07/27 - no further issues 6. DVT proph: lovenox Diagnosis/Problems: Clinical Quality Measures DVT/VTE Risk/Contraindication: Risk Factor Score Per Nursin RFS Level Per Nursing on Admit: 4+=Very High CHANEL COTTRELL MD Jul 27, 2017 11:58 am
[2017-07-27 16:34] VITALS: BP 142/65
[2017-07-27] MEDS: ALFUZOSIN HCL 10 MG TAB (UROXATRAL) PO SCH (18:17)
--- NOTE | 2017-07-27 18:18 | Progress Note-Standard ---
Standard Progress Note Progress Notes/Assess & Plan Date Seen by Provider: Jul 27, 2017 Time Seen by Provider: 18:13 Progress/Assessment & Plan S- Minimal standing for transfers according to nursing. O- Left Lower Extremity grossly Neuro vascular intact A- Stable orthowise POD #2 P- OK to be Discharged as far as orthopedic assessment Final Diagnosis Stable ortho-alcantar POD #2 from [facility] with IM Nail left hip EMIGDIO ALVAREZ MD Jul 27, 2017 6:18 pm
[2017-07-28] MEDS: ARTIFICAL TEARS 0.4 ML UNIT DOSE (REFRESH PLUS) OU SCH ×12 (00:28→22:03)
[2017-07-28 00:45] VITALS: BP 167/71
[2017-07-28] MEDS: CATHETER FLUSH 10 ML SYR IV SCH ×3 (04:47→22:08)
[2017-07-28 04:50] LABS: MEAN PLATELET VOLUME 8.9 FL (7.4-10.4); RED BLOOD COUNT 3.44 10^6/uL (4.35-5.85); RED CELL DISTRIBUTION WIDTH 12.5 % (10.0-14.5); WHITE BLOOD COUNT 7.5 10^3/uL (4.3-11.0)
[2017-07-28 05:13] LABS: ALANINE AMINOTRANSFERASE 22 U/L (0-55); ALBUMIN 2.7 GM/DL (3.2-4.5); ANION GAP 13 MMOL/L (5-14); ASPARTATE AMINO TRANSFERASE 29 U/L (5-34); BILIRUBIN,TOTAL 0.6 MG/DL (0.1-1.0); BLOOD UREA NITROGEN 15 MG/DL (7-18); BUN/CREATININE RATIO 20; CARBON DIOXIDE 25 MMOL/L (21-32); CHLORIDE 101 MMOL/L (98-107); CREATININE SERUM 0.74 MG/DL (0.60-1.30); GFR ESTIMATED > 60; GLUCOSE 106 MG/DL (70-105); POTASSIUM 3.7 MMOL/L (3.6-5.0); SODIUM 139 MMOL/L (135-145)
[2017-07-28 07:45] VITALS: BP 174/75
[2017-07-28] MEDS: LEVOTHYROXINE 100 MCG (LEVOTHROID) TAB PO SCH (08:48)
[2017-07-28] MEDS: ENOXAPARIN 30 MG/0.3 ML (LOVENOX) SYR SC SCH ×2 (08:48→20:30)
[2017-07-28] MEDS: DONEPEZIL 10 MG (ARICEPT) TAB PO SCH (08:48)
[2017-07-28] MEDS: amLODIPine 10 MG (NORVASC) TAB PO SCH (08:49)
[2017-07-28] MEDS: SENNOSIDES 8.6 MG (SENOKOT) TAB PO SCH ×2 (08:49→20:30)
[2017-07-28] MEDS: HYDROCHLOROTHIAZIDE 12.5 MG (HCTZ) CAP PO SCH (08:49)
[2017-07-28] MEDS: GABAPENTIN 600 MG (NEURONTIN) TAB PO SCH ×2 (08:49→20:30)
[2017-07-28] MEDS: meTOprolol TARTRATE 50 MG (LOPRESSOR) TAB PO SCH ×2 (08:49→20:30)
--- NOTE | 2017-07-28 14:00 | Physical Therapy Daily Note ---
PT Daily Note-Current Subjective Patient in bed pre tx, agrees to PT but states that he needs to have a bowel movement. He does not rate his pain but obviously has pain in his left hip. OT will assist PT with toileting and dressing, and cleaning. Appearance Patient in wheelchair post tx with family who wanted to push him around this unit. Mental Status Patient Orientation: Confused Transfers Functional [place] Measure 0=Not Assessed/NA 4=Minimal Assistance 1=Total Assistance 5=Supervision or Setup 2=Maximal Assistance 6=Modified [place] 3=Moderate Assistance 7=Complete IndependenceIRFPAI Quality Coding Scale 6 Independent with activity with or without an assistive device 5 Patient requires set up or clean up by helper. Patient completes activity by themselves 4 Supervision or touching assist (CGA). [place] provide cues , steadying assist 3 The helper provides less than half the effort to complete the activity 2 The helper provides more than half the effort to complete the activity 1 Dependent. The helper does all the effort to complete an activity 7 Patient refused to complete or attempt activity 9 The patient did not perform the activity before the current illness or injury 88 Not attempted due to Medical conditions or safety concerns Transfers (B, C, W/C) (FIM): 2 Scootin Rollin Supine to/from Sit: 2 Sit to/from Stand: 2 Bed to/from Chair: 2 Patient was max assist with all bed mobility and transfers. He had to roll from side to side several times for cleaning and dressing and during the transfer he forcefully grabs onto therapist. He was transferred to the bedside commode to finish his BM and then from there to the wheelchair. Treatments bed mobility and transfers, Assessment Current Status: Poor Progress no change in mobility PT Short Term Goals Short Term Goals Time Frame: Aug 02, 2017 Transfers (B,C,W/C) (FIM): 4 Gait (FIM): 4 Distance (FIM): 1=up to 49 ft Gait Distance Comment: 20 feet Gait Level of Assist: 4 Gait Assistive Device: FWW PT Change Control Analyst Goals Change Control Analyst Goals PT [facility] Goals Time Frame: Aug 09, 2017 Transfers (B,C,W/C) (FIM): 5 Gait (FIM): 5 Gait distance (FIM): 0=690-56 ft Distance: 150 feet Gait Level of Assist: 5 Gait Assistive Device: FWW PT Plan Problem List Problem List: Activity Tolerance, Functional Strength, Safety, Balance, Gait, Transfer, Bed Mobility, ROM Treatment/Plan Treatment Plan: Continue Plan of Care Treatment Plan: Bed Mobility, Education, Functional Activity Liza, Functional Strength, Gait, Safety, Therapeutic Exercise, Transfers Treatment Duration: Aug 09, 2017 Frequency: Twice Daily Estimated Hrs Per Day: .5 hour per day Patient and/or Family Agrees t: Yes Safety Risks/Education Patient Education: Transfer Techniques, Correct Positioning, Safety Issues Teaching Recipient: Patient Teaching Methods: Demonstration, Discussion Response to Teaching: Reinforcement Needed Time/GCodes Time In: 1330 Time Out: 1355 Total Billed Treatment Time: 25 Total Billed Treatment 1 visit FA 25' FAY LOPEZ PT Jul 28, 2017 14:00
--- NOTE | 2017-07-28 14:15 | Progress Note-Standard ---
Standard Progress Note Progress Notes/Assess & Plan Date Seen by Provider: Jul 28, 2017 Time Seen by Provider: 14:13 Progress/Assessment & Plan S- Up in chair today according to . O- Left Lower Extremity grossly Neuro vascular intact, gentle motion without signs of pain A- Stable orthowise POD #3 left hip hemiarthroplasty P- OK to be Discharged as far as orthopedic assessment Final Diagnosis Stable orthowise POD #3 left hip hemiarthroplasty EMIGDIO ALVAREZ MD Jul 28, 2017 2:15 pm
--- NOTE | 2017-07-28 15:34 | Occupational Ther Daily Note ---
OT Current Status-Daily Note Subjective Pt. does not report pain level, but yells whenever left LE is moved. Appearance Pt. in bed. Has had BM in pants. Mental Status/Objective Patient Orientation: Confused Functional [place] Measure 0=Not Assessed/NA 4=Minimal Assistance 1=Total Assistance 5=Supervision or Setup 2=Maximal Assistance 6=Modified [place] 3=Moderate Assistance 7=Complete [place] ADL-Treatment Functional [place] Measure 0=Not Assessed/NA 4=Minimal Assistance 1=Total Assistance 5=Supervision or Setup 2=Maximal Assistance 6=Modified [place] 3=Moderate Assistance 7=Complete IndependenceIRFPAI Quality Coding Scale 6 Independent with activity with or without an assistive device 5 Patient requires set up or clean up by helper. Patient completes activity by themselves 4 Supervision or touching assist (CGA). [place] provide cues , steadying assist 3 The helper provides less than half the effort to complete the activity 2 The helper provides more than half the effort to complete the activity 1 Dependent. The helper does all the effort to complete an activity 7 Patient refused to complete or attempt activity 9 The patient did not perform the activity before the current illness or injury 88 Not attempted due to Medical conditions or safety concerns Lower Body Dressing (FIM): 1 (Please see note below) Lower Body Dressing (QC): 1 Toileting (FIM): 1 (Please see note below.) Toileting Hygiene (QC): 1 Transfers (B, C, W/C) (FIM): 2 Toilet/Commode Transfer (FIM): 2 Toilet Transfer (QC): 2 Other Treatment OT/PT/nursing in pt.'s room. Pt. stated that he had to "poop" but had to wait on BSC. Pt. became incontinent of stool in pants. Begins to perseverate on this fact, that BSC could not be found. BSC found and put in room. Pt. required max x 1-2 to roll in bed, while bed being changed. Dependent for keira care. Pt. confused and putting hands in incontinence. Co-treat due to pt's confusion and level of care required. Pt. had difficulty following cues. OT cleansed keira area and instructed pt. on hand placement and ADL care, while PT facilitated rolling and transfers. Transferred supine-sit with max x 2-3. Pt. states that he has to have another BM. Transferred with max assist for sit- stand, and then mod x 2 for pivot to BSC. Sat on BSC, but did not go again. However, did required keira care again and OT donned adult depend. Family requested to take pt. in wheelchair around the hospital floor. Pt. stood again with max assist and transferred to wheelchair. Pt. unsafe in chair without leg rests on. Waiting for leg rests. Able to position legs once leg rests in the room, and family took pt. Education OT Patient Education: Correct positioning, Modified ADL techniques, Progress toward Goal/Update tx plan, Purpose of tx/functional activities, Reviewed precautions, Rehab process, Transfer techniques Teaching Recipient: Patient Teaching Methods: Demonstration, Discussion Response to Teaching: Verbalize Understanding, Return Demonstration OT Short Term Goals Short Term Goals Transfers (B,C,W/C) (FIM): 4 1=Demonstrate adherence to instructed precautions during ADL tasks. 2=Patient will verbalize/demonstrate understanding of assistive devices/ modifications for ADL. 3=Patient will improve strength/tolerance for activity to enable patient to perform ADL's. OT Bulker Goals Bulker Goals Time Frame: Aug 01, 2017 Eating (FIM): 5 Groomin Upper Body Dressing(FIM): 5 Lower Body Dressing(FIM): 3 Toileting(FIM): 3 Toilet/Commode Transfer(FIM): 4 Additional Goals: 2-Verbalize Understanding, 3-ImproveStrength/Liza 1=Demonstrate adherence to instructed precautions during ADL tasks. 2=Patient will verbalize/demonstrate understanding of assistive devices/ modifications for ADL. 3=Patient will improve strength/tolerance for activity to enable patient to perform ADL's. OT Education/Plan Problem List/Assessment Assessment: Decreased Activ Tolerance, Decreased Safety Aware, Decreased UE Strength, Dependent Transfers, Impaired Bed Mobility, Impaired Cognition, Impaired Coordination, Impaired Funct Balance, Impaired I ADL's, Impaired Self- Care Skills, Restricted Funct UE ROM Pt would benefit from skilled OT to increase his independence in basic self care and to decrease caregiver burden Discharge Recommendations Plan/Recommendations: Continue POC Therapy D/C Recommendations: 24 hr Supervision Treatment Plan/Plan of Care Treatment,Training & Education: Yes Patient would benefit from OT for education, treatment and training to promote independence in ADL's, mobility, safety and/or upper extremity function for ADL' s. Plan of Care: ADL Retraining, Functional Mobility, UE Funct Exercise/Act Treatment Duration: Aug 01, 2017 Frequency: 5 times per week Estimated Hrs Per Day: .5 hour per day Agreement: Yes Rehab Potential: Fair Time/GCodes Start Time: 13:30 Stop Time: 13:55 Total Time Billed (hr/min): 25 Billed Treatment Time 1, ADL x 1 25 (10) co-treat with PT (please see note above for designated roles.) DIOGENES MULLINS OT Jul 28, 2017 15:34
--- NOTE | 2017-07-28 15:51 | Progress Note (SOAP) ---
Subjective Subjective/Events-last exam pt was confused, didn't sleep well last night. wanting him to go to IR[facility], would like consult placed. Review of Systems Date Seen by Provider: Jul 28, 2017 Time Seen by Provider: 09:55 General: No Chills, No Night Sweats Objective Exam Last Set of Vital Signs Vital Signs Date Time Temp Pulse Resp B/P (MAP) Pulse Ox O2 Delivery O2 Flow Rate FiO2 07/28/17 09:00 Room Air 07/28/17 07:45 99.2 82 20 174/75 96 07/25/17 18:00 3.00 Capillary Refill : Less Than 3 SecondsLess Than 3 Seconds General: Alert, Oriented X3, Cooperative, No Acute Distress Lungs: Clear to Auscultation, Normal Air Movement Heart: Regular Rate, Normal S1, Normal S2, No Murmurs, Gallops, Rubs Abdomen: Normal Bowel Sounds, Soft, No Tenderness, No Hepatosplenomegaly, No Masses Extremities: No Clubbing, No Cyanosis, No Edema Skin: No Rashes, No Breakdown, No Significant Lesion Neuro: Normal Speech Psych/Mental Status: Mental Status NL, Mood NL Results/Procedures Lab Laboratory Tests 07/28/17 04:30: White Blood Count 7.5, Red Blood Count 3.44L, Hemoglobin 10.3L, Hematocrit 31L, Mean Corpuscular Volume 89, Mean Corpuscular Hemoglobin 30, Mean Corpuscular Hemoglobin Concent 34, Red Cell Distribution Width 12.5, Platelet Count 279, Mean Platelet Volume 8.9, Sodium Level 139, Potassium Level 3.7, Chloride Level 101, Carbon Dioxide Level 25, Anion Gap 13, Blood Urea Nitrogen 15, Creatinine 0.74, Estimat Glomerular Filtration Rate > 60, BUN/Creatinine Ratio 20, Glucose Level 106H, Calcium Level 9.0, Total Bilirubin 0.6, Aspartate Amino Transf (AST/ SGOT) 29, Alanine Aminotransferase (ALT/SGPT) 22, Alkaline Phosphatase 74, Total Protein 6.0L, Albumin 2.7L Assessment/Plan Assessment/Plan Plan 1. Intertrochanteric fracture on the left side -Patient to be admitted under the care of orthopedics for repair of the fracture. -At this time is medically stable for procedure. His hemoglobin is stable. -EKG is pending and he will have additional potassium added through IV. -thank you for consultation and will follow along with you after procedure completed 07/26 - being managed by orthopedics, pain adequately controlled 07/27 - orthopedics is admitting team, no note from them as yet? 07/28 - being managed by ortho, but no note from them, hopefully they will come tomorrow as they are the admitting team 2. Hypertension -We will initiate him back on amlodipine as well as hydrochlorothiazide after procedure. 07/26 - restarted amlodipine, no issues today 07/27 - controlled, no changes today 07/28 - BP up, was before meds given 3. Dementia 07/26 - stable, no changes as yet. cautious use of narcotics. 07/27 - stable, no changes. dc iv pain meds. 07/28 - haldol 2.5-5mg prn tonight 4. 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 Easton 07/26 - no active issues 07/27 - no changes 5. Benign prostatic hypertrophy -We'll place on Flomax after procedure. 07/26 - now on flomax, cath prn urinary retention >400cc 07/27 - no further issues 6. DVT proph: lovenox Diagnosis/Problems: Clinical Quality Measures DVT/VTE Risk/Contraindication: Risk Factor Score Per Nursin RFS Level Per Nursing on Admit: 4+=Very High CHANEL COTTRELL MD Jul 28, 2017 3:51 pm
[2017-07-28] MEDS ORDERED: HALOPERIDOL 5 MG/ML (HALDOL) AMP IM PRN (16:00)
[2017-07-28 16:50] VITALS: BP 154/64
[2017-07-28] MEDS: ALFUZOSIN HCL 10 MG TAB (UROXATRAL) PO SCH (18:57)
[2017-07-28] MEDS: oxyCODONE/APAP 5/325MG (PERCOCET 5) TABLET PO PRN (20:32)
[2017-07-28 23:55] VITALS: BP 159/71
[2017-07-29] MEDS: ARTIFICAL TEARS 0.4 ML UNIT DOSE (REFRESH PLUS) OU SCH ×8 (00:07→14:09)
[2017-07-29] MEDS: LEVOTHYROXINE 100 MCG (LEVOTHROID) TAB PO SCH (05:34)
[2017-07-29] MEDS: CATHETER FLUSH 10 ML SYR IV SCH ×2 (05:34→12:10)
--- NOTE | 2017-07-29 07:31 | Discharge Summary ---
Diagnosis/Chief Complaint Date of Admission Jul 25, 2017 at 01:10 Date of Discharge July 29, 2017 Discharge Date: Jul 29, 2017 Discharge Time: 07:15 Admission Diagnosis Admission Diagnosis hip fracture Discharge Diagnosis 1. Intertrochanteric fracture on the left side -Patient to be admitted under the care of orthopedics for repair of the fracture. -At this time is medically stable for procedure. His hemoglobin is stable. -EKG is pending and he will have additional potassium added through IV. -thank you for consultation and will follow along with you after procedure completed 07/26 - being managed by orthopedics, pain adequately controlled 07/27 - orthopedics is admitting team, no note from them as yet? 07/28 - being managed by ortho, but no note from them, hopefully they will come tomorrow as they are the admitting team 2. Hypertension -We will initiate him back on amlodipine as well as hydrochlorothiazide after procedure. 07/26 - restarted amlodipine, no issues today 07/27 - controlled, no changes today 07/28 - BP up, was before meds given 3. Dementia 07/26 - stable, no changes as yet. cautious use of narcotics. 07/27 - stable, no changes. dc iv pain meds. 07/28 - haldol 2.5-5mg prn tonight 4. 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 Easton 07/26 - no active issues 07/27 - no changes 5. Benign prostatic hypertrophy -We'll place on Flomax after procedure. 07/26 - now on flomax, cath prn urinary retention >400cc 07/27 - no further issues Reason Hospital Visit 72-year-old male admitted to [facility] July 23, 2017 for dementia as well as taking a fall and having left-sided greater trochanter injury. At that time the CT revealed no intertrochanteric fracture. He apparently sustained a fall late yesterday evening at the senior living after apparently wetting the bed. The nurse was going for supplies and when she was gone there was a audible fall with Filiberto lying on the ground. He was brought to [facility] emergency department for evaluation and at that time he was found to have a completed intertrochanteric fracture on the left side. His reports today other than having some discomfort he basically appears to be himself. There is no shortness of breath no chest pain reported. 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 Discharge Summary Hospital Course Hospital Course Patient was admitted on July 25, 2017 with intertrochanteric fracture of the left hip. Patient was admitted to orthopedic services under care of Dr. Ramos. He ultimately underwent surgical correction of the intertrochanteric fracture. He was also treated for his hypertension and dementia during the hospital stay. He had physical therapy following the surgery however due to his dementia he was not very compliant with the rehabilitation. Most likely he will be unable to perform 3 hours of rehabilitation for the acute care. Recommendations were for further rehabilitation on a shorter hourly basis at the [facility]. I spoke with patient's on dismissal and she was concerned regarding his dementia and how he would do at the [facility]. At this point he will be discharged to the [facility] with outpatient OT and physical therapy. He will also be maintained on his home medications prior to hospitalization. Labs Laboratory Tests 07/27/17 04:40: Red Blood Count 3.37L, Hemoglobin 10.2L, Hematocrit 30L, Total Protein 5.6L, Albumin 2.5L 07/28/17 04:30: Red Blood Count 3.44L, Hemoglobin 10.3L, Hematocrit 31L, Total Protein 6.0L, Albumin 2.7L, Glucose Level 106H Procedures None. Discharge Physical Examination Allergies: Coded Allergies: No Known Drug Allergies (Unverified , 10/05/10) Vitals & I&Os Vital Signs Date Time Temp Pulse Resp B/P (MAP) Pulse Ox O2 Delivery O2 Flow Rate FiO2 07/28/17 23:55 98.2 63 20 159/71 97 Room Air 07/25/17 18:00 3.00 General Appearance: No Acute Distress, Other (Patient does speak noncoherent at times and another times does remember events) Respiratory: Clear to Auscultation Cardiovascular: Regular Rate Abdominal: Soft Extremities: Other (Tenderness at the left hip noted) Discharge Home Medications Reviewed and agree with Discharge Medication list on patient's Discharge Instruction sheet Instructions to Patient/Family Please see electonic discharge instructions given to patient. Clinical Quality Measures DVT/VTE Risk/Contraindication: Risk Factor Score Per Nursin RFS Level Per Nursing on Admit: 4+=Very High JOSE ALEJANDRO MANZO MD Jul 29, 2017 07:31
--- NOTE | 2017-07-29 07:38 | Discharge Inst-Simple/Standard ---
Discharge Inst-Standard Discharge Medications New, Converted or Re-Newed RX: Other (he has available) Patient Instructions/Follow Up Plan of Care/Instructions/FU: Follow-up with orthopedics as instructed. He will also follow-up with Dr. Manzo within 2 weeks. Activity as Tolerated: Yes (As per physical therapy and occupational therapy) Goal: Ambulation Discharge Diet: Low Sodium Diet Return to The Hospital For: Fever or increasing pain of the left hip JOSE ALEJANDRO MANZO MD Jul 29, 2017 07:38
[2017-07-29 07:50] LABS: MEAN PLATELET VOLUME 8.8 FL (7.4-10.4); RED BLOOD COUNT 3.5 10^6/uL (4.35-5.85); RED CELL DISTRIBUTION WIDTH 12.7 % (10.0-14.5); WHITE BLOOD COUNT 6.1 10^3/uL (4.3-11.0)
[2017-07-29 08:00] VITALS: BP 144/63
[2017-07-29 08:12] LABS: ALANINE AMINOTRANSFERASE 40 U/L (0-55); ALBUMIN 2.7 GM/DL (3.2-4.5); ANION GAP 13 MMOL/L (5-14); ASPARTATE AMINO TRANSFERASE 46 U/L (5-34); BILIRUBIN,TOTAL 0.6 MG/DL (0.1-1.0); BLOOD UREA NITROGEN 16 MG/DL (7-18); BUN/CREATININE RATIO 20; CALCIUM 8.6 MG/DL (8.5-10.1); CARBON DIOXIDE 24 MMOL/L (21-32); CHLORIDE 101 MMOL/L (98-107); GFR ESTIMATED > 60; GLUCOSE 115 MG/DL (70-105); POTASSIUM 2.8 MMOL/L (3.6-5.0); SODIUM 138 MMOL/L (135-145); TOTAL PROTEIN 6.1 GM/DL (6.4-8.2)
[2017-07-29] MEDS: SENNOSIDES 8.6 MG (SENOKOT) TAB PO SCH (08:28)
[2017-07-29] MEDS: HYDROCHLOROTHIAZIDE 12.5 MG (HCTZ) CAP PO SCH (08:28)
[2017-07-29] MEDS: amLODIPine 10 MG (NORVASC) TAB PO SCH (08:28)
[2017-07-29] MEDS: DONEPEZIL 10 MG (ARICEPT) TAB PO SCH (08:28)
[2017-07-29] MEDS: meTOprolol TARTRATE 50 MG (LOPRESSOR) TAB PO SCH (08:28)
[2017-07-29] MEDS: GABAPENTIN 600 MG (NEURONTIN) TAB PO SCH (08:28)
[2017-07-29] MEDS: ENOXAPARIN 30 MG/0.3 ML (LOVENOX) SYR SC SCH (08:31)
[2017-07-29] MEDS: oxyCODONE/APAP 5/325MG (PERCOCET 5) TABLET PO PRN (08:32)
--- NOTE | 2017-07-29 09:44 | Physical Therapy Daily Note ---
PT Daily Note-Current Subjective Patient is sideways in bed with right LE hanging over side rail. Spouse is present. Pain Numeric Pain Scale: 10-Worst Possible Pain Location: Left Location Body Site: Hip Pain Description: Acute Comment: FLACC Mental Status Patient Orientation: Confused Transfers Functional [place] Measure 0=Not Assessed/NA 4=Minimal Assistance 1=Total Assistance 5=Supervision or Setup 2=Maximal Assistance 6=Modified [place] 3=Moderate Assistance 7=Complete IndependenceIRFPAI Quality Coding Scale 6 Independent with activity with or without an assistive device 5 Patient requires set up or clean up by helper. Patient completes activity by themselves 4 Supervision or touching assist (CGA). [place] provide cues , steadying assist 3 The helper provides less than half the effort to complete the activity 2 The helper provides more than half the effort to complete the activity 1 Dependent. The helper does all the effort to complete an activity 7 Patient refused to complete or attempt activity 9 The patient did not perform the activity before the current illness or injury 88 Not attempted due to Medical conditions or safety concerns Transfers (B, C, W/C) (FIM): 4 Scootin Rollin Supine to/from Sit: 4 Sit to/from Stand: 4 Bed to/from Chair: 4 Patient requires much encouragement to actively participate with therapy. Weight Bearing Weight Bearing Restriction: Weight Bearing/Tolerated Location Restriction: L LE Gait Training Gait (FIM): 1 Distance (FIM): 1=up to 49 ft Distance: 25' Gait Level of Assist: 3 Gait Persons Needed: 1 Gait Assistive Device: FWW Patient is very resistive to weight bear on left LE due to pain. Required PT to hold FWW and patient with gait belt to assist with weight shifting to perform gait training. Patient is very impulsive and resistive with all attempt to weight bear left LE. Exercises Seated Therapy Exercises: Ankle pumps, Long arc quads Seated Reps: 10 (4 sets; AAROM left LE due to pain) Assessment Patient is very verbally aggressive during treatment. Spouse is present. Patient is unaware of safety concerns and is unable to comprehend and retain simple direction. From a PT standpoint, patient would benefit from extended care facility to regain full strength and mobility. PT Short Term Goals Short Term Goals Time Frame: Aug 02, 2017 Transfers (B,C,W/C) (FIM): 4 Gait (FIM): 4 Distance (FIM): 1=up to 49 ft Gait Distance Comment: 20 feet Gait Level of Assist: 4 Gait Assistive Device: FWW PT Assisted Goals Contract [employer] Specialist Goals PT Assisted Goals Time Frame: Aug 09, 2017 Transfers (B,C,W/C) (FIM): 5 Gait (FIM): 5 Gait distance (FIM): 7=051-42 ft Distance: 150 feet Gait Level of Assist: 5 Gait Assistive Device: FWW PT Plan Treatment/Plan Treatment Plan: Continue Plan of Care Treatment Plan: Bed Mobility, Education, Functional Activity Liza, Functional Strength, Gait, Safety, Therapeutic Exercise, Transfers Treatment Duration: Aug 09, 2017 Frequency: Twice Daily Estimated Hrs Per Day: .5 hour per day Patient and/or Family Agrees t: Yes Time/GCodes Time In: 915 Time Out: 938 Total Billed Treatment Time: 23 Total Billed Treatment 1 visit EX 8 min GT 15 min RICHIE CRAIG PT Jul 29, 2017 09:44
[2017-07-29 13:40] VITALS: BP 144/63
== END 2017-07-29 13:40 | DRG 481 ==
LOC: EDUNIT# 00:12 → ER 00:14 → 4TH 01:10
PROVIDERS: ADMIT Orthopaedic Surgery; ATTEND Family Medicine
PROC: 0QS706Z Reposition Left Upper Femur with Intramedullary Internal Fixation Device, Open Approach (ICD-10-PCS; principal; 2017-07-25 08:46)
DX: S72.142A Displaced intertrochanteric fracture of left femur, initial encounter for closed fracture (principal); I10 Essential (primary) hypertension; N40.0 Benign prostatic hyperplasia without lower urinary tract symptoms; F03.90 Unspecified dementia, unspecified severity, without behavioral disturbance, psychotic disturbance, mood disturbance, and anxiety; C78.01 Secondary malignant neoplasm of right lung; C78.02 Secondary malignant neoplasm of left lung; Z66 Do not resuscitate; R73.03 Prediabetes; G62.9 Polyneuropathy, unspecified; E03.9 Hypothyroidism, unspecified; J30.2 Other seasonal allergic rhinitis; F41.9 Anxiety disorder, unspecified; W06.XXXA Fall from bed, initial encounter; Y92.122 Bedroom in nursing home as the place of occurrence of the external cause; Z85.21 Personal history of malignant neoplasm of larynx; Z92.21 Personal history of antineoplastic chemotherapy; Z92.3 Personal history of irradiation; Z87.898 Personal history of other specified conditions; Z87.891 Personal history of nicotine dependence
CPT/HCPCS: 36415; 70450; 71010; 72170; 73502; 73552; 80053; 85025; 85027; 85610; 85730; 86850; 86900; 86901; 93005; 94664; 96374

== ENCOUNTER → 2017-08-15 | Outpatient (CLI) | payer OTHER, MEDICARE ==
[~2017-08-15] MED LIST changes: +CARB15DR3 OU; +DONE10TA48 SL; +LEVO100T7 PO; +LORA1TAB PO; +TAMS0.4C2 PO
--- NOTE | 2017-08-15 12:22 | Diagnostic Imaging Report ---
INDICATION: Status post fall, recent surgery for proximal femoral fracture AP and oblique views of the left hip are obtained. Comparison made to intraoperative views on 07/25/17. The hardware in the femoral neck and proximal shaft is unchanged in alignment. Intertrochanteric and subtrochanteric fracture is in good alignment with hardware in place. IMPRESSION: Good alignment of the previous fracture of left proximal femur with unchanged orthopedic hardware. Dictated by: Dictated on workstation # [id number]
== END ==
LOC: RAD 11:26
PROVIDERS: ATTEND Family Medicine
DX: S72.002D Fracture of unspecified part of neck of left femur, subsequent encounter for closed fracture with routine healing (principal); Z98.890 Other specified postprocedural states; W19.XXXA Unspecified fall, initial encounter; Y99.8 Other external cause status
CPT/HCPCS: 73502

== ENCOUNTER 2017-08-26 14:17 | Outpatient (RCR) | payer MEDICARE ==
[~2017-08-26 14:17] MED LIST changes: +NIVOLUMAB IV SCH; +NS IV 500 ML (CANCER CENTER) 500 ML IV SCH; +NS IV SCH
[2017-08-26 14:53] LABS: BASOPHILS % (AUTO) 1 % (0-10); EOSINOPHILS # (AUTO) 0.3 10^3/uL (0.0-0.3); EOSINOPHILS % (AUTO) 5 % (0-10); LYMPHOCYTES # (AUTO) 0.7 X 10^3 (1.0-4.0); LYMPHOCYTES % (AUTO) 10 % (12-44); MEAN CORPUSCULAR HEMOGLOBIN 29 PG (25-34); MEAN CORPUSCULAR HGB CONC 32 G/DL (32-36); MEAN CORPUSCULAR VOLUME 90 FL (80-99); MEAN PLATELET VOLUME 8.8 FL (7.4-10.4); MONOCYTES # (AUTO) 0.9 X 10^3 (0.0-1.0); MONOCYTES % (AUTO) 12 % (0-12); NEUTROPHILS # (AUTO) 5.4 X 10^3 (1.8-7.8); NEUTROPHILS % (AUTO) 73 % (42-75); PLATELET COUNT 350 10^3/uL (130-400); RED BLOOD COUNT 3.49 10^6/uL (4.35-5.85); WHITE BLOOD COUNT 7.4 10^3/uL (4.3-11.0)
[2017-08-26 15:15] LABS: ALANINE AMINOTRANSFERASE 20 U/L (0-55); ALBUMIN 3.1 GM/DL (3.2-4.5); ANION GAP 8 MMOL/L (5-14); ASPARTATE AMINO TRANSFERASE 21 U/L (5-34); BILIRUBIN,TOTAL 0.3 MG/DL (0.1-1.0); BLOOD UREA NITROGEN 15 MG/DL (7-18); BUN/CREATININE RATIO 13; CALCIUM 9.6 MG/DL (8.5-10.1); CARBON DIOXIDE 28 MMOL/L (21-32); CHLORIDE 101 MMOL/L (98-107); CREATININE SERUM 1.16 MG/DL (0.60-1.30); GFR ESTIMATED > 60; GLUCOSE 130 MG/DL (70-105); POTASSIUM 3.8 MMOL/L (3.6-5.0); SODIUM 137 MMOL/L (135-145); TOTAL PROTEIN 7.2 GM/DL (6.4-8.2)
== END 2017-09-15 09:01 | disposition home or self-care (01) ==
LOC: ONC 14:17
PROVIDERS: ATTEND Internal Medicine Hematology & Oncology
DX: C12 Malignant neoplasm of pyriform sinus (principal); C78.01 Secondary malignant neoplasm of right lung; C78.02 Secondary malignant neoplasm of left lung; I10 Essential (primary) hypertension; E89.0 Postprocedural hypothyroidism; E87.6 Hypokalemia; F17.210 Nicotine dependence, cigarettes, uncomplicated; Z79.899 Other long term (current) drug therapy; Z92.3 Personal history of irradiation; Z92.21 Personal history of antineoplastic chemotherapy
CPT/HCPCS: 36591; 80053; 85025

== ENCOUNTER → 2017-09-10 | Outpatient (CLI) | payer MEDICARE ==
[~2017-09-10] MED LIST changes: +BARIUM SUSPENSION 2.1% (VANILLA SILQ) 450 ML PO ONE; +CATHETER FLUSH 10 ML SYR IV PRN; +IOHEXOL 350 MG/ML 100 ML (OMNIPAQUE 350) VIAL IV ONE; -NIVOLUMAB IV SCH; +NS 100 ML (IVPB) BAG IV ONE; -NS IV 500 ML (CANCER CENTER) 500 ML IV SCH; -NS IV SCH
--- NOTE | 2017-09-10 19:25 | Diagnostic Imaging Report ---
EXAMINATION: CT neck, chest and abdomen performed with intravenous contrast. 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 100 mL of Omnipaque 350 is administered intravenously. FINDINGS: CT NECK: There is nonspecific mucosal thickening and enhancement seen in the hypopharynx with no discrete mass. The vocal cords appear symmetric. The thyroid gland is small in size but homogeneous parenchyma is seen. The submandibular and the parotid glands appear symmetric. The orbits and visualized portions of the paranasal sinuses appear unremarkable. No significantly enlarged cervical lymph nodes are seen. The osseous structures demonstrate prominent degenerative changes particularly in the facet joints. CT CHEST: There are multiple soft tissue nodules that have developed when compared to CT associated with PET from 07/30/2016 that appear to be based on the pleura or potentially extrapleural location within the left hemithorax deep to the ribs. The largest lesion is 2.7 x 2.2 cm and measures craniocaudally 4.6 cm. It appears to be contiguous with inferior other nodules seen. These are highly suggestive of metastatic disease. There is also a nodule measuring 1.3 x 1.7 cm in the right perihilar region new from the prior exam within the right lower lobe just posterior to the major fissure. Other nonspecific tiny nodules are seen in the lungs which may relate to metastasis most prominent in the right lung base and are generally less than 5 mm in size. No mediastinal mass or significantly enlarged lymph nodes. No hilar lymphadenopathy. No axillary lymphadenopathy. The osseous structures demonstrate bridging syndesmophytes. Bilateral gynecomastia is incidentally noted. CT ABDOMEN: The liver, the spleen, the pancreas, and the adrenal glands appear unremarkable. The kidneys have symmetric enhancement and contrast excretion. No hydronephrosis. Multiple simple renal cysts are noted. The abdominal aorta is normal in caliber. No para-aortic significantly enlarged lymph node is seen. The gallbladder demonstrates no calcified stone. The osseous structures demonstrate degenerative changes. IMPRESSION: CT NECK: Nonspecific enhancement and mucosal thickening in the hypopharynx could relate to post-therapeutic changes with no definite evidence of tumor recurrence or metastasis. CT CHEST: 1. Multiple pleural based or potentially extrapleural masses in the left hemithorax compatible with metastasis. 2. Right perihilar lower lobe pulmonary nodule suggestive of metastasis. Other nonspecific micronodules mostly in the right lung base also seen and may relate to early metastasis as well. CT ABDOMEN: No evidence of metastasis. Dictated by: Dictated on workstation # [id number]
== END ==
LOC: RAD 10:49
PROVIDERS: ATTEND Nurse Practitioner Adult Health
DX: C12 Malignant neoplasm of pyriform sinus (principal); C78.00 Secondary malignant neoplasm of unspecified lung; C77.9 Secondary and unspecified malignant neoplasm of lymph node, unspecified
CPT/HCPCS: 70491; 71260; 74160

== ENCOUNTER 2017-10-08 11:22 | Outpatient (RCR) | payer MEDICARE ==
[~2017-10-08 11:22] MED LIST changes: +ACHD5005 PO; -BARIUM SUSPENSION 2.1% (VANILLA SILQ) 450 ML PO ONE; -CATHETER FLUSH 10 ML SYR IV PRN; -HYDR-3812 PO; -IOHEXOL 350 MG/ML 100 ML (OMNIPAQUE 350) VIAL IV ONE; +NIVOLUMAB IV SCH; -NS 100 ML (IVPB) BAG IV ONE; +NS IV 500 ML (CANCER CENTER) 500 ML IV SCH; +NS IV SCH
== END 2017-12-16 | disposition home or self-care (01) ==
LOC: ONC 11:22
PROVIDERS: ATTEND Internal Medicine Hematology & Oncology
DX: C12 Malignant neoplasm of pyriform sinus (principal); C78.01 Secondary malignant neoplasm of right lung; C78.02 Secondary malignant neoplasm of left lung; I10 Essential (primary) hypertension; E89.0 Postprocedural hypothyroidism; E87.6 Hypokalemia; F17.210 Nicotine dependence, cigarettes, uncomplicated; Z79.899 Other long term (current) drug therapy; Z92.3 Personal history of irradiation; Z92.21 Personal history of antineoplastic chemotherapy
CPT/HCPCS: 99213

== ENCOUNTER 2017-10-26 04:47 | Emergency (ER) | payer MEDICARE ==
[~2017-10-26] VITALS: Ht 182.9 cm; Wt 60.8 kg
[~2017-10-26 04:47] MED LIST changes: -ACHD5005 PO; +HYDR-3812 PO; -NIVOLUMAB IV SCH; -NS IV 500 ML (CANCER CENTER) 500 ML IV SCH; -NS IV SCH
[2017-10-26] MEDS ORDERED: TETANUS,DIPTH,PERTUSS P/F (BOOSTRIX) 0.5 ML VIAL IM STA (04:57)
--- NOTE | 2017-10-26 05:12 | ED Head Injury ---
General Chief Complaint: Trauma-Non Activation Stated Complaint: FALL Nursing Triage Note: UNWITNESSED FALL, LACERATION TO POSTERIOR SCALP Source: retirement records, spouse Exam Limitations: other (PT WITH VERY POOR MEMORY) History of Present Illness Time seen by provider: 04:50 Initial Comments PT ARRIVES VIA EMS FROM [facility]IA [facility], [place]--NO IMMOBILIZATION PT HAD UNWITNESSED FALL --UNKNOWN IF HE HAD LOSS OF CONSCIOUSNESS, AND PT DOES NOT RECALL FALLING. HAS LACERATION TO BACK OF HEAD PT DENIES PAIN ANYWHERE DENIES VISION CHANGES DENIES PARESTHESIAS OR MOTOR DEFICITS DENIES NAUSEA MENTAL STATUS IS AT NORMAL BASELINE, PER , WHO ARRIVES A SHORT TIME AFTER PT 'S ARRIVAL SHE REPORTS THAT PT HAS FREQUENT FALLS--PT FELL AND FRACTURED LEFT HIP IN JUNE , AND HAS BEEN MOSTLY IN WHEELCHAIR, BUT HAS BEEN UP WITH A WALKER A LITTLE MORE , LATELY. PT IS ORIENTED TO PLACE, PERSON, CANNOT RECALL EVENTS--NOT SURE WHY HE IS HERE-- AND CONFUSED TO TIME/DATE ( DOES NOT KNOW MONTH OR YEAR ) , BUT KNOWS WAS RECENT HOLIDAY AND MONSERRAT IS NEXT HOL PCP: DR. MANZO Allergies and Home Medications Allergies Coded Allergies: No Known Drug Allergies (Unverified , 10/05/10) Home Medications Amlodipine Besylate 10 Mg Tablet, 10 MG PO DAILY, (Reported) Carboxymethylcellulose Sodium 15 Ml Drp.lq.gel, 1 DROP OU 08,10,12,14,16,18,20, (Reported) Donepezil HCl 10 Mg Tab.rapdis, 10 MG SL DAILY, (Reported) Gabapentin 600 Mg Tablet, 300 MG PO BID, (Reported) TAKES 1/2 (600MG) TABLET Hydrochlorothiazide 12.5 Mg Cap, 12.5 MG PO DAILY, (Reported) Levothyroxine Sodium 100 Mcg Tablet, 100 MCG PO DAILY, (Reported) Lorazepam 1 Mg Tablet, 0.5-1 MG PO Q8H PRN for ANXIETY, (Reported) TAKES 1/2 TO 1 (1MG) TABLET Metoprolol Tartrate 100 Mg Tablet, 100 MG PO BID, (Reported) Potassium Chloride 10 Meq Tab.prt.sr, 10 MEQ PO BID, (Reported) Tamsulosin HCl 0.4 Mg Cap.er.24h, 0.4 MG PO 1800, (Reported) Tramadol HCl 50 Mg Tablet, 50 MG PO Q8H PRN for PAIN-MODERATE, (Reported) Constitutional: no symptoms reported Eyes: No Symptoms Reported Ears, Nose, Mouth, Throat: no symptoms reported Respiratory: no symptoms reported Cardiovascular: no symptoms reported Gastrointestinal: no symptoms reported Genitourinary: no symptoms reported Musculoskeletal: no symptoms reported Skin: see HPI, other (LACERATION TO BACK OF HEAD) Psychiatric/Neurological: See HPI Endocrine: No Symptoms Reported Hematologic/Lymphatic: No Symptoms Reported Past [id number] Hx Patient Social History Alcohol Use: Past History (HISTORY OF ABUSE--UP TO 1/2 PINT OF LIQUOR PLUS BEER DAILY--QUIT 2015) Number of Drinks Today: AA Alcohol Beverage of Choice: Beer, Other Recreational Drug Use: No Smoking Status: Former Smoker (1 PPD, QUIT 2015) Type Used: Cigarettes Former Smoker, Quit: Jun 24, 2016 2nd Hand Smoke Exposure: No Recent Foreign Travel: No Contact w/Someone Who Travel: No Recent Infectious Disease Expo: No Recent Hopitalizations: No Physical Abuse: No Sexual Abuse: No Immunizations Up To Date Tetanus Booster (TDap): Less than 5yrs (03/2017) Seasonal Allergies Seasonal Allergies: Yes Surgeries History of Surgeries: Yes (LEFT HIP FX/REPAIR 07/2017; RIGHT ROTATOR CUFF, LEFT HUMERUS FX/ORIF 2014; 2 RIGHT FOOT SURGERIES; REMOVAL OF JENKINS'S NEUROMA RIGHT FOOT; G-TUBE PLACEMENT; PORT LEFT CHEST; LARYNGOSCOPIES + LARYNGEAL BIOPSIES; COLONOSCOPY) Surgeries: Orthopedic, Vasectomy Respiratory History of Respiratory Disorde: Yes (THROAT CANCER WITH BILATERAL LUNG METS) Cardiovascular History of Cardiac Disorders: Yes Cardiac Disorders: Hypertension Neurological History of Neurological Disord: Yes Neurological Disorders: Dementia, Neuropathy Reproductive System Hx Reproductive Disorders: No Sexually Transmitted Disease: No Genitourinary History of Genitourinary Disor: Yes Genitourinary Disorders: Benign Prostatic Hyperpl Gastrointestinal History of Gastrointestinal Di: Yes Gastrointestinal Disorders: Polyps Musculoskeletal History of Musculoskeletal Dis: Yes (FREQUENT FALLS, RIGHT SHOULDER SURGERY; LEFT SHOULDER/HUMERUS FX/ORIF 06/14/15; CRUSH INJURY RIGHT FOOT WITH SURGERIES X 2; RIGHT FOOT JENKINS'S NEUROMA-REMOVED; LEFT HIP FX/ORIF 07/2017) Musculoskeletal Disorders: Fractures Endocrine History of Endocrine Disorders: Yes ("BORDERLINE" DIABETES--NO MEDICATIONS AND DOES NOT FOLLOW DIET) Endocrine Disorders: Hypothyroidsim, Diabetes, Non-Insulin dep HEENT History of HEENT Disorders: Yes (THROAT CANCER) HEENT Disorders: Cataract Loss of Vision: Denies Hearing Impairment: Denies Cancer History of Cancer: Yes (SQUAMOUS CELL THROAT CANCER WITH BILATERAL LUNG METS) Cancer: Lung Did You Recieve Any Treatments: Yes Type of Tx Receive: Chemotherapy, Radiation Psychosocial History of Psychiatric Problem: Yes Behavioral Health Disorders: Anxiety Suicide Risk Score: 0 Integumentary History of Skin or Integumenta: No Blood Transfusions History of Blood Disorders: No Adverse Reaction to a Blood Tr: No Family Medical History Family Medial History: Aneurysm 19 FATHER Colon cancer 19 MOTHER Physical Exam Vital Signs Vital Sign - Last 12Hours 10/26/17 04:50 Temp 97.1 Pulse 60 Resp 18 B/P (MAP) 170/81 (110) Pulse Ox 99 Capillary Refill : Less Than 3 Seconds General Appearance: WD/WN, no apparent distress HEENT: PERRL/EOMI, normal ENT inspection, TMs normal, pharynx normal, other ( POOR DENTITION; 6 CM FLAP LACERATION TO BACK OF HEAD. NO ACTIVE BLEEDING) Neck: non-tender, full range of motion, supple, normal inspection Cardiovascular: normal peripheral pulses, regular rate, rhythm, no murmur Respiratory: chest non-tender, normal breath sounds, no respiratory distress, no accessory muscle use Gastrointestinal: normal bowel sounds, non tender, soft Back: normal inspection, no CVA tenderness, no vertebral tenderness Extremities: normal range of motion, non-tender, normal inspection, no pedal edema, no calf tenderness, normal capillary refill Psychiatric: alert, other (MENTATION NOTED ABOVE) Crainal Nerves: normal hearing, normal speech, PERRL Motor/Sensory: no motor deficit, no sensory deficit, no pronator drift Skin: normal color, warm/dry [place] Coma Score Best Eye Response: (4) Open Spontaneously Best Verbal Response: (5) Oriented (X2--NORMAL BASELINE) Best Motor Response: (6) Obeys Commands Laceration Repair : Wound Location: Scalp (OCCIPUT) Wound Length (cm): 6 Wound's Depth, Shape: flap, sub Q Wound Explored: clean Anesthesia: 1% Lidocaine (2% LIDOCAINE PLAIN) Staple Repair: Stapler 35W (#8) Progress/Results/Core Measures Results/Orders My Orders Orders - JOSEPH TATE DO Ct Head/Cervical Spine Wo (10/26/17 04:57) Dipht,Pertuss(Acell),Tet Adult (Boostrix (10/26/17 04:57) Pelvis (10/26/17 05:07) Lidocaine 2% Injection 20 Ml (Xylocaine (10/26/17 05:30) Saline Lock/Iv-Start (10/26/17 07:01) Ns Iv 1000 Ml (Sodium Chloride 0.9%) (10/26/17 07:01) Cervical Collar (10/26/17 07:01) Medications Given in ED Current Medications Medications Dose Ordered Sig/Jennifer Route Start Time Stop Time Status Last Admin Dose Admin Lidocaine HCl 20 ml ONCE ONCE INJ 10/26/17 05:30 10/26/17 05:31 DC 10/26/17 06:15 20 ML Vital Signs/I&O Vital Sign - Last 12Hours 10/26/17 04:50 Temp 97.1 Pulse 60 Resp 18 B/P (MAP) 170/81 (110) Pulse Ox 99 Blood Pressure Mean: 110 Progress Note : Progress Note CERVICAL COLLAR IMMEDIATELY PLACED ON PT UNEVENTFUL ER STAY--PT HAD NO COMPLAINTS DURING ER STAY Diagnostic Imaging Comments CT HEAD/CERVICAL SPINE--CHRONIC CHANGES OF BRAIN, NO ACUTE INTRACRANIAL INJURY, ACUTE MINIMALLY DISPLACED FRACTURE OF RIGHT LATERAL MASS OF C2. PER [facility] VIA FAX @ [phone] Reviewed: Reviewed by Me Departure Communication (Admissions) Progress Notes [id number]--CALLED [facility] DIRECT CALL. PAGING DR. BILLINGS, NEUROSURGEON 0648--SPOKE WITH DR. BILLINGS, SHE ADVISES TO SEND PT TO ER [id number]--SPOKE WITH DR. BOLDEN, ER PHYSICIAN, ACCEPTS PT FOR TRANSFER Impression Impression: Primary Impression: Status post fall Additional Impressions: Closed C2 fracture Dementia HEAD INJURY WITH UNKNOWN LOSS OF CONSCIOUSNESS Occipital scalp laceration Disposition: XFER SHT-TRM HOSP Condition: Stable Departure-Patient Inst. Referrals: JOSE ALEJANDRO MANZO MD (PCP/Family) Primary Care Physician Images Head/Face 1 - Laceration, Tenderness JOSEPH TATE DO Oct 26, 2017 05:12
[2017-10-26] MEDS ORDERED: LIDOCAINE 2% 20 ML (XYLOCAINE) VIAL INJ ONE (05:30)
[2017-10-26] MEDS ORDERED: NS IV 1000 ML 1,000 ML IV ONE (07:01)
[2017-10-26 07:30] VITALS: BP 172/73
--- NOTE | 2017-10-26 08:03 | Diagnostic Imaging Report ---
INDICATION: Fall, hip pain COMPARISON: None FINDINGS: Single view of the pelvis demonstrates prior ORIF left hip. There is no acute fracture or dislocation. Articular surfaces are age-appropriate. Sclerosis is present. IMPRESSION: No acute fracture or dislocation. Dictated by: Dictated on workstation # [id number]
--- NOTE | 2017-10-26 08:04 | Diagnostic Imaging Report ---
PROCEDURE: CT head and CT cervical spine without contrast. TECHNIQUE: Multiple contiguous axial images were obtained through the brain and cervical spine without the use of intravenous contrast. Sagittal and coronal reformations through the cervical spine were then performed. INDICATION: Head and neck pain. COMPARISON: 07/25/2017. CT HEAD: Stable age-related cerebral volume loss and chronic small vessel ischemic changes are present. There is no midline shift or mass effect. There is no cerebral edema. There is no skull fracture. The visualized paranasal sinuses and mastoids are clear. IMPRESSION: No acute intracranial abnormality. CT CERVICAL SPINE: Alignment is stable. There is no subluxation or fracture. Moderate degenerative changes seen at the disc spaces and facet joints. There is no osseous lesion. There is no paraspinous mass. Bilateral carotid artery calcifications are present. IMPRESSION: No traumatic malalignment or fracture. Dictated by: Dictated on workstation # [id number]
== END 2017-10-26 07:30 | disposition short-term general hospital (02) ==
LOC: EDUNIT# 04:47 → ER 04:48
DX: S09.90XA Unspecified injury of head, initial encounter (principal); S12.100A Unspecified displaced fracture of second cervical vertebra, initial encounter for closed fracture; S01.01XA Laceration without foreign body of scalp, initial encounter; F03.90 Unspecified dementia, unspecified severity, without behavioral disturbance, psychotic disturbance, mood disturbance, and anxiety; I10 Essential (primary) hypertension; N40.0 Benign prostatic hyperplasia without lower urinary tract symptoms; E03.9 Hypothyroidism, unspecified; E11.40 Type 2 diabetes mellitus with diabetic neuropathy, unspecified; F41.9 Anxiety disorder, unspecified; Z86.010 Personal history of colon polyps; Z91.81 History of falling; Z80.0 Family history of malignant neoplasm of digestive organs; Z92.3 Personal history of irradiation; Z87.891 Personal history of nicotine dependence; Z96.642 Presence of left artificial hip joint; Z98.52 Vasectomy status; Z85.818 Personal history of malignant neoplasm of other sites of lip, oral cavity, and pharynx; Z85.118 Personal history of other malignant neoplasm of bronchus and lung; W19.XXXA Unspecified fall, initial encounter
CPT/HCPCS: 12002; 70450; 72125; 72170

== ENCOUNTER → 2017-11-28 | Outpatient (CLI) | payer MEDICARE ==
[~2017-11-28] MED LIST changes: +ACHD5005 PO; -HYDR-3812 PO
--- NOTE | 2017-11-28 11:09 | Diagnostic Imaging Report ---
Cervical spine. INDICATION: Neck pain. 6 views were obtained. FINDINGS: As noted on the CT cervical spine exam of 10/26/2017, there is moderate degenerative disc and bony disease throughout the cervical spine. The degenerative changes do not seem to progress since the prior exam. The C5-C6 level appears to be most significantly affected as there is narrowing of the disc space at this level and osteophyte formation along the ventral aspects of vertebral bodies at C5 and C6. There also appears to be bony foraminal encroachment bilaterally at this level. There is also mild bony foraminal encroachment at the C4-C5 level bilaterally. There is no fracture or acute bony abnormality appreciated. There is no sign of retropharyngeal edema. The lung apices are clear. IMPRESSION: 1. There is no evidence for an acute bony abnormality. 2. There is degenerative disc and bony disease involving the cervical spine at the C5-C6 level the most significantly affected. 3. If there is clinical concern regarding spinal stenosis or nerve root encroachment, then MRI would be recommended for additional study. Dictated by: Dictated on workstation # [id number]
== END ==
LOC: RAD 09:33
DX: M50.322 Other cervical disc degeneration at C5-C6 level (principal); W19.XXXA Unspecified fall, initial encounter
CPT/HCPCS: 72050